=== PATIENT | female | born 1950 | race Caucasian/White ===

== ENCOUNTER 2016-03-15 16:55 | Inpatient (IN) | payer MEDICARE, OTHER ==
[~2016-03-15] VITALS: Ht 165.1 cm; Wt 43.0 kg
[~2016-03-15 16:55] MED LIST: DIFL500T PO
[2016-03-15 20:00] VITALS: PULSE 112
[2016-03-15] MEDS: DEXT 5%-NACL 0.45% 1000 ML INJ 1,000 ML IV SCH (20:30)
[2016-03-15] MEDS: HEPARIN SODIUM - SQ 10,000 UNITS/ML VIAL SQ SCH (20:49)
[2016-03-15] MEDS: FAMOTIDINE 20 MG/2 ML VIAL IV SCH (20:49)
[2016-03-15] MEDS: MORPHINE SULFATE 4 MG/ML INJ IV PRN ×2 (20:49→22:33)
[2016-03-15] MEDS: methylPREDNISolone SOD SUCC 125 MG/2 ML VIAL IV SCH (20:49)
--- NOTE | 2016-03-15 20:55 | PD.CONS ---
HPI Service Critical Care Medicine Consult Requested By Reason for Consult Critical Airway Primary Care Physician Jorje Park M.D. History of Present Illness 65 y/o woman developed a left submandibular abscess several days after a tooth extraction and required intubation for airway protection and surgical drainage of the left submandibular region for a large abscess containing pus and air. A josefina drain is in place. She will undergoing drainage inside the mouth tomorrow by OMFS Service. Presently on Ceftriaxone on recommendation of ID service at [facility] after review of the cultures. DM, 2 with poor glucose control. She is confused and combative, unable to respond to ROS. Review of Systems ROS Unobtainable, confused. Past Family Social History Allergies: Coded Allergies: Codeine (Verified Allergy, Unknown, 02/03/16) Vicodin (Verified Allergy, Unknown, 02/03/16) Past Medical History DM, 2 Spinocerebellar Ataxia Physical Exam Physical Exam Gen: Agitated, elderly woman. Head: Recent incision 3 cm under left mandible with sutures and josefina drain. No erythema. Neck: Supple, no stridor. Moderate left side swelling. LungsL Clear, mild tachypnea. No wheezes or crackles. Heart: NL S1S2, tachycardia. No JVD. Abdomen: Soft, nontender. No peritoneal irritation or guarding. BS active. Extremities: Warm, well perfused. Neuro: Confused and combative. Moves 4 limbs spontaneously. Right weaker than left. Loud moaning, continuous. Assessment and Plan Assessment and Plan Assessment: 1. Left mandibular abscess s/p external drainage. 2. DM, poorly controlled. 3. Severe agitation. 4. UTI. Plan: 1. Ceftriaxone. 2. Airway precautions. 3. HOB up 30 degrees. 4. No benzodiazepines. 5. Consider precedex if unmanageable. 6. Pepci. 7. Heparin DVT px or SCDs. 8. q6h SSI for euglycemia. Overall impression: Critically ill with potentially compromised airway and risk of sudden respiratory distress. The left neck is swollen and the airway is compromised. She does not have stridor at this point. We will hold off intubation, continue steroids and antibiotics; watch glucose control and intubate if necessary for airway protection. Critical care 37 mins Leo Ellison MD Mar 15, 2016 20:55
[2016-03-15] MEDS ORDERED: cefTRIAXone 2,000 MG/NS 100 ML IV SCH ×2 (21:00)
[2016-03-15] MEDS ORDERED: GLUCAGON 1 MG/ML VIAL OTHER PRN (21:30)
[2016-03-15] MEDS ORDERED: DEXTROSE 50% IN WATER 50 ML VIAL(D50) IV PUSH PRN (21:30)
[2016-03-15 22:00] VITALS: PULSE 72
[2016-03-16] VITALS (14 sets, daily range): BP systolic 157–197; BP diastolic 73–84; PULSE 74–108; RESP 20–30; TEMP 98.1–98.3; O2SAT 93–98
[2016-03-16] MEDS: MORPHINE SULFATE 4 MG/ML INJ IV PRN ×7 (02:38→23:59)
[2016-03-16 04:43] LABS: AUTOMATED NEUTROPHIL # 26.6 TH/MM3 (1.8-7.7); BASOPHIL # 0.1 TH/MM3 (0-0.2); BASOPHIL % 0.2 % (0.0-2.0); HEMATOCRIT 29.8 % (35.0-46.0); LYMPHOCYTE # 0.6 TH/MM3 (1.0-4.8); MEAN CELL VOLUME 91.2 FL (80.0-100.0); MEAN CORPUSCULAR HEMOGLOBIN 31.2 PG (27.0-34.0); MEAN CORPUSCULAR HGB CONC 34.2 % (32.0-36.0); MONO % 4.6 % (0.0-8.0); NEUT % 93.2 % (16.0-70.0); PLATELET COUNT 230 TH/MM3 (150-450); RED BLOOD COUNT 3.27 MIL/MM3 (4.00-5.30); RED CELL DISTRIBUTION WIDTH 14.7 % (11.6-17.2); WHITE BLOOD COUNT 28.5 TH/MM3 (4.0-11.0)
[2016-03-16 04:51] LABS: HEMO FLAGS AUTO DIFF
[2016-03-16] MEDS: methylPREDNISolone SOD SUCC 125 MG/2 ML VIAL IV SCH (05:00)
[2016-03-16 05:12] LABS: ALKALINE PHOSPHATASE 64 U/L (45-117); ALT (GPT) 64 U/L (10-53); ANION GAP 8 MEQ/L (5-15); AST (GOT) 23 U/L (15-37); BICARBONATE 29.4 MEQ/L (21.0-32.0); BLOOD UREA NITROGEN 14 MG/DL (7-18); CHLORIDE 106 MEQ/L (98-107); GLOMERULAR FILTRATION RATE 139 ML/MIN (>89); MAGNESIUM 1.8 MG/DL (1.5-2.5); SODIUM (NA) 143 MEQ/L (136-145); TOTAL BILIRUBIN ADULT 0.4 MG/DL (0.2-1.0)
[2016-03-16 05:17] LABS: POTASSIUM 2.9 MEQ/L (3.5-5.1)
[2016-03-16 05:24] LABS: SCAN/DIFF AUTO DIFF CONFIRMED; TOXIC GRANULATION 2+ (NORMAL)
[2016-03-16] MEDS: HIGH DOSE INSULIN NOVOLOG SUPPLEMENTAL SCALE SQ SCH ×5 (06:00→23:58)
[2016-03-16] MEDS ORDERED: POTASSIUM CHLOR 40 MEQ PREMIX 100 ML IV ONE (06:30)
[2016-03-16] MEDS: FAMOTIDINE 20 MG/2 ML VIAL IV SCH ×2 (08:52→19:42)
[2016-03-16] MEDS: HEPARIN SODIUM - SQ 10,000 UNITS/ML VIAL SQ SCH ×2 (08:53→19:42)
[2016-03-16] MEDS ORDERED: ATROPINE SULFATE 1 MG/10 ML SYRINGE ONE (09:00)
[2016-03-16] MEDS ORDERED: LIDOCAINE HCL 2% 100 MG/5 ML SYRINGE ONE (09:00)
[2016-03-16] MEDS ORDERED: EPINEPHrine HCL (1:10,000) 1 MG/10 ML SYRINGE ONE (09:00)
--- NOTE | 2016-03-16 09:12 | HHI.CCPN ---
Subjective Remarks/Hospital Course 65 y/o woman developed a left submandibular abscess several days after a tooth extraction and required intubation for airway protection and surgical drainage of the left submandibular region for a large abscess containing pus and air. A josefina drain is in place. She will undergoing drainage inside the mouth tomorrow by OMFS Service. Presently on Ceftriaxone on recommendation of ID service at [facility] after review of the cultures. DM, 2 with poor glucose control. Objective Vital Signs Date Time Temp Pulse Resp B/P Pulse Ox O2 Delivery O2 Flow Rate FiO2 03/16/16 06:00 76 03/16/16 02:39 93 Nasal Cannula 2.00 Intake and Output 03/15/16 03/15/16 03/16/16 08:00 16:00 00:00 Intake Total 120 ml Output Total 225 ml Balance -105 ml Result Diagram: 03/16/16 0415 03/16/16 0415 Objective Remarks Vital Signs Date Time Temp Pulse Resp B/P Pulse Ox O2 Delivery O2 Flow Rate FiO2 03/16/16 06:00 76 03/16/16 02:39 93 Nasal Cannula 2.00 Gen: Agitated, elderly woman. Head: Recent incision 3 cm under left mandible with sutures and josefina drain. No erythema. Neck: Supple, no stridor. Moderate left side swelling. LungsL Clear, mild tachypnea. No wheezes or crackles. Heart: NL S1S2, tachycardia. No JVD. Abdomen: Soft, nontender. No peritoneal irritation or guarding. BS active. Extremities: Warm, well perfused. Neuro: Confused and combative. Moves 4 limbs spontaneously. Right weaker than left. Loud moaning, continuous. A/P Assessment and Plan Left mandibular abscess - s/p external drainage - Ceftriaxone. - Airway precautions. - HOB up 30 degrees. - No benzodiazepines. DM - poorly controlled - ISS -resume home meds Severe agitation - Haldol PRN UTI - covered with Rocephin DVT/GI prophylaxis - Heparin, SCDs., Pepcid Level 3 Jayson Owusu MD Mar 16, 2016 09:12
[2016-03-16] MEDS ORDERED: IOHEXOL 350 MG/ML 10 ML VIAL (for RAD DIAG) IV ONE (09:46)
--- NOTE | 2016-03-16 10:27 | RADRPT ---
EXAM DATE/TIME: 03/16/2016 09:37 [place] COMPARISON: No previous studies available for comparison. INDICATIONS: Left mandibular abscess after tooth extraction. IV CONTRAST: 48 cc Omnipaque 350 (iohexol) IV RADIATION DOSE: 9.02 CTDIvol (mGy) MEDICAL HISTORY: Diabetes mellitus type 2. SURGICAL HISTORY: None. ENCOUNTER: Initial ACUITY: 1 week PAIN SCALE: 0/10 LOCATION: Left facial TECHNIQUE: Volumetric scanning of the neck was performed. Using automated exposure control and adjustment of th e mA and/or kV according to patient size, radiation dose was kept as low as reasonably achievable to obtain optimal diagnostic quality images. FINDINGS: There is extensive artifact. In spite of artifact there is air in the tonsillar fossa on the right t hat is on both sides of the mandible. Fluid is seen both in the cheyenne-parotid space and on the inner side of the mandible tracking down to the angle of the abdomen involving base of tongue. This is confined to the left face, including cheyenne-parotid space and base of the tongue. This does no t extend into the low neck. This does not involve the right side. CONCLUSION: Dental abscess as described above extending from tonsillar fossa around the mandible to the parotid s pace with extension along the base of the tongue to the arch of the mandible. Air and fluid is evident. Sarkis Kurtz MD FACR on March 16, 2016 at 10:06 Board Certified Radiologist. This report was verified electronically.
--- NOTE | 2016-03-16 10:35 | MB ---
cc: KYA SANDERSON DMD DATE OF CONSULTATION: 03/16/2016 HISTORY OF PRESENT ILLNESS This is a 65-year-old female who several days ago underwent a left submandibular I&D by Dr. Carter. This was at [facility]. She was sent to the ICU. There was a left submandibular space abscess. Pus came out. Dr. Carter called me yesterday and requested the patient be transferred to [place] as there was no oral surgery service provided in that hospital. I seen and examined the patient this morning. Her nurse is at bedside. The patient does not follow commands. She is just moaning. The patient is at times also combative. PAST MEDICAL HISTORY 1. Diabetes; as per report poor glucose control. 2. Spinal cerebral ataxia. ALLERGIES 1. CODEINE. 2. VICODIN. PHYSICAL EXAMINATION VITAL SIGNS: Pulse 96, respiratory rate 30, blood pressure 155/75 with oxygen saturation of 97%. ORAL MAXILLOFACIAL: The patient's mouth is open. I attempt to gently close the mouth. There is no pus that is noted intraorally. I do not see any recent extraction sites in her mouth. Her dentition clinically looks stable. There is a small elevation on the left floor of the mouth. This could be secondary to the I&D procedure. The posterior aspect looks stable. No elevation of the tongue. No pus coming out of the mouth. Neck on the left side a dressing is placed and a Lindsey drain is in place. There is some discharge that is apparently still coming out of this site. Trachea is midline. The left submandibular region is still swollen. The angle of the mandible is palpable. IMAGING DATA Awaiting CT scan of the soft tissue of the neck to re-evaluate. LABORATORY DATA White count 28.5, H&H 10.8 and 29.8, platelets 230. ASSESSMENT This is a 65-year-old female who recently last week underwent incision and drainage of a left submandibular space abscess by Dr. Carter. Still having some white count elevation. PLAN/RECOMMENDATIONS Will await the CT scan results to try to identify the source of this infection/odontogenic infection if applicable. Kya Sanderson DMD MEDICAL BILLING AND CODING INSTRUCTOR/BT /7:44 AM /10:19 AM MTDQuintin
--- NOTE | 2016-03-16 11:23 | HHI.HP ---
HPI Service [facility] Primary Care Physician Jorje Park M.D. Admission Diagnosis Diagnoses: Chief Complaint: transfer from [facility] for oral facial evaluation, left mandible abscess (Fabiana Grossman) Travel History International Travel<30 Days: No Contact w/Intl Traveler <30 Da: No Traveled to Known Affected Are: No (Fabiana Grossman) History of Present Illness This is a 65 y/o woman with PMHx of spinocerebellar ataxia, resident of an [facility]. Pt. was admitted to [facility] on 03/11/2016 after she developed swelling to left neck. Pt. had a recent dental procedure on 03/05/2016 on the right side. At [facility], patient was found septic, imaging studies completed showed a left submandibular abscess. Patient required intubation for airway protection and underwent incision and drainage of abscess per Dr. Carter. Patient was admitted to the intensive care unit where she was managed by software applications developer Dr. Harris. ID consultation was obtained as well. 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 Currently she is on Rocephin. Patient was extubated at [facility]. Dr. Carter was concerned that there was residual tooth fragment and may need further surgery. As there are no OMFS services at [facility] , she was transferred to [place]. Dr. Carter has discussed case with Dr. Sanderson. Pt. has a josefina drain in place and has cazares colored drainage oozing. Patient still with significant leukocytosis, WBC 28.5. She's noted also hypokalemic, potassium 2.9. She was admitted to intensive care services, software applications developer has been consulted for assistance. Patient has been continued on antibiotics. Patient has been confused, combative. At this time she is moaning , she is not following commands. Per daughter's report given to nurse, patient sometimes becomes agitated after sedative agents. Neuro baseline is not know, no family is at bedside. Patient is admitted for further evaluation and treatment. (Fabiana Grossman) Review of Systems ROS Limitations: Altered Mental Status, Poor Historian (Fabiana Grossman) Past Family Social History Past Medical History spinocerebellar ataxia OA Poss. hx of DM Right proximal humerus fracture August 2014 which has resulted in ongoing right shoulder pain. Past Surgical History S/P I/D left mandibular abscess Dental procedure 03/05/2016, unclear what type of procedure pt. had Reported Medications Reported Meds & Active Scripts Active Reported Diflunisal 500 Mg Tab 500 Mg PO DAILY (Fabiana Grossman) Allergies: Coded Allergies: Codeine (Verified Allergy, Unknown, 02/03/16) Vicodin (Verified Allergy, Unknown, 02/03/16) Active Ordered Medications Inpatient Medications Ceftriaxone Sodium 2000 mg/ Sodium Chloride 100 ml @ 200 mls/hr Q24H IV Last administered on 03/15/16 20:49; Start 03/15/16 at 21:00 Dextrose (D50w (Vial) Inj) 25 ml UNSCH PRN IV PUSH HYPOGLYCEMIA - SEE COMMENTS ; Start 03/15/16 at 21:30 Dextrose/Sodium Chloride (D5W-1/2 NS 1000 ml Inj) 1,000 ml @ 75 mls/hr [id number] IV Last administered on 03/15/16 20:30; Start 03/15/16 at 20:30 Famotidine (Pepcid Inj) 20 mg Q12HR IV Last administered on 03/16/16 08:52; Start 03/15/16 at 21:00 Glucagon (Glucagon Inj) 1 mg UNSCH PRN OTHER HYPOGLYCEMIA-SEE COMMENTS; Start 03/15/16 at 21:30 Heparin Sodium (Porcine) (Heparin Inj) 5,000 units Q12HR SQ Last administered on 03/15/16 20:49; Start 03/15/16 at 21:00 Insulin Aspart 1 1 Q6HR SQ Last administered on 03/16/16 00:00; Start at 00:00 Methylprednisolone Sodium Succinate (SoluMEDROL INJ) 80 mg Q8H IV Last administered on 03/16/16 05:00; Start 03/15/16 at 21:00 Morphine Sulfate (Morphine Inj) 2 mg Q30M PRN IV PAIN 6-10 Last administered on 03/16/16 06:11; Start 03/15/16 at 20:30 Potassium Chloride (KCl 40 Meq Premix Inj) 100 ml @ 25 mls/hr ONCE ONCE IV Last administered on 03/16/16 06:30; Start 03/16/16 at 06:30; Stop 03/16/16 at 10:29; Status DC Family History Positive for OH, CAD in father Social History Lives at [facility], wheelchair bound. No documented hx of ETOH, smoking, substance abuse. (Fabiana Grossman) Physical Exam Vital Signs Vital Signs Date Time Temp Pulse Resp B/P Pulse Ox O2 Delivery O2 Flow Rate FiO2 03/16/16 10:59 97 Nasal Cannula 2.00 03/16/16 10:00 83 03/16/16 08:00 98.1 108 25 167/84 98 03/16/16 08:00 108 03/16/16 07:00 100 Nasal Cannula 2.00 03/16/16 06:00 76 03/16/16 04:00 74 03/16/16 02:39 93 Nasal Cannula 2.00 03/16/16 02:00 80 03/16/16 00:00 80 03/15/16 22:00 72 03/15/16 20:00 112 Physical Exam GENERAL: This is an elderly, anxious female, moaning. SKIN: No rashes, ecchymoses or lesions. Cool and dry. HEAD: Atraumatic. Normocephalic. No temporal or scalp tenderness. EYES: Pupils equal round and reactive. Extraocular motions intact. No scleral icterus. No injection or drainage. ENT: Nose without bleeding, purulent drainage or septal hematoma. Oropharynx with dried oral secretions, mucosa dry. Throat with mild erythema, no tonsillar hypertrophy or exudate. Uvula midline. Airway patent. NECK: Trachea midline. No JVD or lymphadenopathy. Supple. Left neck with swelling, has a josefina drain in place, purulent cazares drainage noted with odor. CARDIOVASCULAR: Regular rate and rhythm without murmurs, gallops, or rubs. RESPIRATORY: Coarse, upper airway, diminished at bases. GASTROINTESTINAL: Abdomen soft, non-tender, nondistended. No hepato-splenomegaly , or palpable masses. No guarding. MUSCULOSKELETAL: Extremities noted rigid, muscle atrophy. Dependent edema noted both feet, pedal pulses 1+ bilat. NEUROLOGICAL: Awake, moaning, not following commands. Laboratory Laboratory Tests Test 03/16/16 04:15 White Blood Count 28.5 Red Blood Count 3.27 Hemoglobin 10.2 Hematocrit 29.8 Mean Corpuscular Volume 91.2 Mean Corpuscular Hemoglobin 31.2 Mean Corpuscular Hemoglobin 34.2 Concent Red Cell Distribution Width 14.7 Platelet Count 230 Mean Platelet Volume 9.3 Neutrophils (%) (Auto) 93.2 Lymphocytes (%) (Auto) 2.0 Monocytes (%) (Auto) 4.6 Eosinophils (%) (Auto) 0.0 Basophils (%) (Auto) 0.2 Neutrophils # (Auto) 26.6 Lymphocytes # (Auto) 0.6 Monocytes # (Auto) 1.3 Eosinophils # (Auto) 0.0 Basophils # (Auto) 0.1 CBC Comment AUTO DIFF Differential Comment AUTO DIFF CONFIRMED Toxic Granulation 2+ Sodium Level 143 Potassium Level 2.9 Chloride Level 106 Carbon Dioxide Level 29.4 Anion Gap 8 Blood Urea Nitrogen 14 Creatinine 0.45 Estimat Glomerular Filtration 139 Rate Random Glucose 174 Calcium Level 8.0 Magnesium Level 1.8 Total Bilirubin 0.4 Aspartate Amino Transf 23 (AST/SGOT) Alanine Aminotransferase 64 (ALT/SGPT) Alkaline Phosphatase 64 Total Protein 5.5 Albumin 2.7 Date/Time Procedure Status Source Growth 03/16/16 10:25 Gram Stain Received Wound Neck Pending 03/16/16 10:25 Wound Culture Received Wound Neck Pending 03/16/16 10:25 Fungal Smear Received Wound Neck Pending 03/16/16 10:25 Fungal Culture Received Wound Neck Pending 03/16/16 10:25 Acid Fast Stain Received Wound Neck Pending 03/16/16 10:25 Mycobacterial Culture Received Wound Neck Pending (Fabiana Grossman) Result Diagram: 03/16/165 03/16/16414 Assessment and Plan Problem List: (1) Sepsis (2) Spinocerebellar ataxia (3) Blood glucose elevated (4) Hypokalemia (5) recent I/D left mandible (6) History of recent dental procedure (7) left mandibular abscess (8) Altered mental status Assessment and Plan Admit to Dr. Stevens 65 y/o woman with admitted to [facility] on 03/11/2016 swelling to left neck, diagnosed with left mandibular abscess requiring emergent exploratory surgery and incision and drainage of abscess per Dr. Carter. Recent dental procedure on 03/05/2016 on the right side.Pt. required intubation for airway protection. Sent to [facility] for evaluation by [facility]. Pt. is septic, with significant leukocytosis, has a josefina drain to surgical site with purulent drainage. -continue antibiotics -ID consult in place -Follow cultures -Dr. Sanderson following -CT of neck has been ordered, follow up on results -Appreciate software applications developer input -Monitor for respiratory distress, keep NPO. At risk for airway compromise. -continue IVF Hypokalemia -K has been replaced -BMP in am Elevated blood glucose -continue with accuchecks and ISS AMS, has been agitated, unclear of baseline, poss. from sepsis -monitor, may need further work up -Ammonia level Hx of spinocerebellar ataxia -pt. wheelchair bound, lives at [facility] -PT eval when stable. Home medications reviewed, initiated as indicated Heparin/SCDs for DVT prophylaxis Pepcid for GI prophylaxis Plan of care discussed with attending and RN. Further management of the pt. will be dependent on the hospital course. This patient was seen by myself and Dr. Stevens, this H/P is written on his behalf. (Fabiana Grossman) Assessment and Plan Patient seen and examined as above Chart reviewed Labs and neurological data reviewed Medications reviewed Plan of care discussed with LYN Discussed with RN Discussed with ID (Dalila Stevens MD) Physician Certification 2 Midnight Certification Type: Admission for Inpatient Services Order for Inpatient Services The services are ordered in accordance with Medicare regulations or non- Medicare payer requirements, as applicable. In the case of services not specified as inpatient-only, they are appropriately provided as inpatient services in accordance with the 2-midnight benchmark. Estimated LOS (days): 2 2 days is the estimated time the patient will need to remain in the hospital, assuming treatment plan goals are met and no additional complications. Post-Hospital Plan: Not yet determined (Fabiana Grossman) Problem Qualifiers (1) Sepsis: Qualified Code: A41.9 - Sepsis, due to unspecified organism (2) Altered mental status: Qualified Code: R41.0 - Disorientation Fabiana Grossman Mar 16, 2016 11:23 Dalila Stevens MD Mar 16, 2016 16:29
[2016-03-16] MEDS ORDERED: SODIUM CHLORIDE 0.9% FLUSH 5 ML FLUSH FLUSH PRN (11:30)
[2016-03-16] MEDS ORDERED: NALOXONE HCL 0.4 MG/ML AMP IV PRN (11:30)
[2016-03-16] MEDS ORDERED: ONDANSETRON HCL 4 MG/2 ML VIAL IVP PRN (12:00)
[2016-03-16] MEDS ORDERED: ACETAMINOPHEN 325 MG TAB PO PRN (12:00)
[2016-03-16] MEDS: AMPICILLIN-SULBACTAM INJ 3 GM in SODIUM CHLORIDE 0.9% INJ 100 ML IV SCH ×2 (13:20→17:54)
--- NOTE | 2016-03-16 14:23 | PD.CONS ---
History of Present Illness Service Infectious disease Consult Requested By Dr Coral Owusu Reason for Consult Evaluate patient with neck abscess Primary Care Physician Jorje Park M.D. Diagnoses: History of Present Illness Patient seen and examined. Records reviewed. Patient is unable to give any history. Patient is transferred from [facility], and now reviewed the records from that hospital. I also called [facility] microbiology to get information on her cultures. Patient is a 65-year-old female, initially admitted to [facility] for evaluation of an abscess in the left side of her neck. She apparently underwent tooth extraction March 05. She then developed swelling on the left side of her neck and progressively worsened so she presented to [facility] on March 11. She was diagnosed to have a large neck abscess, and ENT saw the patient and did left neck exploration with incision and drainage of the deep space neck abscess. She was initially intubated for airway protection, and was subsequently extubated. She was transferred here to [facility] for oral maxillofacial surgical evaluation. There was some question of whether it was an incomplete tooth extraction which could have caused the abscess in her left neck. According to the nurse, the report they got from [facility] is that since she was extubated, her mental status has not been good. She has been moaning, and not really interacting. Prior to intubation she was apparently able to converse. Patient was seen by infectious disease as well as pulmonary during her stay in [facility]. She has blood culture that had strep anginal status , which is sensitive to all the antibiotics tested. She also has culture that came from surgery that grew strep anginal cirrhosis as well. Patient currently is quite lethargic and constantly moaning. She is on nasal O2 , and she is mouth breathing. She's afebrile. Her WBC on admission is 28.5. Infectious disease consultation is requested to evaluate the patient. Review of Systems ROS Limitations: Clinical Condition, Altered Mental Status, Unresponsive Past Family Social History Allergies: Coded Allergies: Codeine (Verified Allergy, Unknown, 02/03/16) Vicodin (Verified Allergy, Unknown, 02/03/16) Past Medical History Spinocerebellar ataxia Past Surgical History Right hand surgery Breast augmentation Question section Active Ordered Medications Tylenol Unasyn Pepcid Heparin Insulin Morphine Zofran Social History Lives in an [facility] No alcohol abuse No smoking No illicit drug use Physical Exam Vital Signs Vital Signs Date Time Temp Pulse Resp B/P Pulse Ox O2 Delivery O2 Flow Rate FiO2 03/16/16 12:00 88 03/16/16 12:00 98.2 88 22 157/73 98 03/16/16 10:59 97 Nasal Cannula 2.00 03/16/16 10:00 83 03/16/16 08:00 98.1 108 25 167/84 98 03/16/16 08:00 108 03/16/16 07:00 100 Nasal Cannula 2.00 03/16/16 06:00 76 03/16/16 04:00 74 03/16/16 02:39 93 Nasal Cannula 2.00 03/16/16 02:00 80 03/16/16 00:00 80 03/15/16 22:00 72 03/15/16 20:00 112 Physical Exam GENERAL: This is a thin, well-developed female, obtunded, mouth breathing, and has some upper respiratory sounds. SKIN: Cool and dry. No generalized rash. No embolic lesions. HEAD: Atraumatic. Normocephalic. Has some temporal wasting EYES: [place] conjunctivae, no petechia or hemorrhage. Pupils equal round and reactive. No scleral icterus. No injection or drainage. ENT: Nose without bleeding, or purulent drainage. Dry oral mucosa, dentition look okay, has some swelling on the left side of the floor of the mouth. Throat without erythema, or exudate. Uvula midline. Airway patent. NECK: Supple. Has incision in L submandibular area with josefina drain in place , and with small amount of yellow drainage, some swelling noted as well, minimal erythema CARDIOVASCULAR: Regular rate and rhythm without murmurs, gallops, or rubs. RESPIRATORY: Clear to auscultation. Breath sounds equal bilaterally. Has some upper respiratory sounds,. No wheezes, rales, or rhonchi. GASTROINTESTINAL: Abdomen soft, mildly distended, not guarding, no rebound. No hepato-splenomegaly. MUSCULOSKELETAL: Extremities without clubbing, cyanosis, or edema. No joint effusion, or edema noted. NEUROLOGICAL: Obtunded, moans when stimulated, not interactive. No Babinski, no ankle clonus Laboratory Laboratory Tests Test 03/16/16 04:15 White Blood Count 28.5 Red Blood Count 3.27 Hemoglobin 10.2 Hematocrit 29.8 Mean Corpuscular Volume 91.2 Mean Corpuscular Hemoglobin 31.2 Mean Corpuscular Hemoglobin 34.2 Concent Red Cell Distribution Width 14.7 Platelet Count 230 Mean Platelet Volume 9.3 Neutrophils (%) (Auto) 93.2 Lymphocytes (%) (Auto) 2.0 Monocytes (%) (Auto) 4.6 Eosinophils (%) (Auto) 0.0 Basophils (%) (Auto) 0.2 Neutrophils # (Auto) 26.6 Lymphocytes # (Auto) 0.6 Monocytes # (Auto) 1.3 Eosinophils # (Auto) 0.0 Basophils # (Auto) 0.1 CBC Comment AUTO DIFF Differential Comment AUTO DIFF CONFIRMED Toxic Granulation 2+ Sodium Level 143 Potassium Level 2.9 Chloride Level 106 Carbon Dioxide Level 29.4 Anion Gap 8 Blood Urea Nitrogen 14 Creatinine 0.45 Estimat Glomerular Filtration 139 Rate Random Glucose 174 Calcium Level 8.0 Magnesium Level 1.8 Total Bilirubin 0.4 Aspartate Amino Transf 23 (AST/SGOT) Alanine Aminotransferase 64 (ALT/SGPT) Alkaline Phosphatase 64 Total Protein 5.5 Albumin 2.7 Date/Time Procedure Status Source Growth 03/16/16 10:25 Gram Stain Received Wound Neck Pending 03/16/16 10:25 Wound Culture Received Wound Neck Pending 03/16/16 10:25 Fungal Smear Received Wound Neck Pending 03/16/16 10:25 Fungal Culture Received Wound Neck Pending 03/16/16 10:25 Acid Fast Stain Received Wound Neck Pending 03/16/16 10:25 Mycobacterial Culture Received Wound Neck Pending Result Diagram: 03/16/16 0415 03/16/16414 Assessment and Plan Assessment and Plan IMPRESSION 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
--- NOTE | 2016-03-16 16:17 | MB ---
cc: RODNEY CONNORS MD DATE OF CONSULTATION: 03/16/2016 CHIEF COMPLAINT Left neck abscess. HISTORY OF PRESENT ILLNESS This is a 65-year-old female known to me, she presented to [facility] Wednesday night to the emergency room with diagnosis of Bryan's angina as well as a large left neck abscess from a dental extraction time of March the in her fpc of tooth #31. At that time the patient was unstable in very critical condition. She was taken to the operating room for intubation which I did under flexible scope with preparation for possible awake tracheostomy that we did not have to do. We moved forward with surgical drainage, at which time I drained approximately 20 mL of purulent material from her left neck, deep neck space just in the retromandibular area posterior to the submandibular gland approaching the area of tooth 31. There was significant purulent drainage noted at that time. The patient had cultures and sensitivities done and she was treated in the ICU over the next couple of days. She continued to do well, however, her white counts continued to increase and her left neck swelling decreased and improved greatly as well as her floor of mouth edema and purulence. However, after evaluation of her status Wednesday, I determined that she would benefit from oral surgery evaluation because as speaking with her daughter, it was obvious that some portions of the tooth root were left in place that she explained that the dentist told her and this may be the nidus for continued infections. The improvement in her left neck is continued. She is no longer intubated, her airway is still patent, however, she is not responding appropriately or the way that she did preoperatively and prior to the intubation in the ICU. 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 I am unaware if that is factual or not. She was responding Wednesday night to questions, however, she was difficult to understand from the amount of edema. She is currently resting comfortably in bed. PAST MEDICAL HISTORY Significant for: Diabetes mellitus as well as spinal cerebellar ataxia. ALLERGIES SHE IS ALLERGIC TO BOTH CODEINE AND VICODIN. REVIEW OF SYSTEMS As per the HPI. SOCIAL HISTORY She currently lives in a fpc and receives care there for her dental work. PHYSICAL EXAMINATION The patient is not alert or oriented. She awakens her eyes to command and to voice. The oral cavity shows continued purulence noted around the left extraction site. The left neck shows continued purulence coming from the Lindsey drain site but the left neck swelling is markedly increased as compared to it was preoperatively. still edematous but non-fluctuant. ASSESSMENT/PLAN The patient should continue with the Tad drainage from the left submandibular space abscess. She has improved greatly in her neck. I will have to defer the oral cavity to the oral surgery service as I am not sure what the nidus for continued elevated white counts are, whether it is steroid-induced or continued residual infection, possibly an osteomyelitis of the mandible. The patient did have infectious disease consult at [facility] and she would likely benefit from infectious disease consultation here at [facility]. At this time we are going to continue the Lindsey drain and will reevaluate for removal possibly on Wednesday. Rodney Connors AT/TLL /11:56 AM /3:33 PM MTDQuintin
[2016-03-16] MEDS: METOPROLOL TARTRATE 5 MG/5 ML VIAL IV PUSH PRN (17:54)
[2016-03-16] MEDS: DEXT 5%-NACL 0.45% 1000 ML INJ 1,000 ML IV SCH (19:42)
[2016-03-16] MEDS: SODIUM CHLORIDE 0.9% FLUSH 5 ML FLUSH FLUSH SCH (19:43)
[2016-03-16] MEDS: hydrALAZINE HCL 20 MG/ML VIAL IV PUSH PRN (20:16)
[2016-03-16] MEDS ORDERED: ICU - CALL ORDERING PHYSICIAN XX PRN (21:00)
[2016-03-16] MEDS ORDERED: ICU - MAGNESIUM OXIDE 400 MG TAB PO PRN (21:00)
[2016-03-16] MEDS ORDERED: ICU - POTASSIUM PHOSPHATE MONOBASIC 500 MG TAB PO/TUBE PRN (21:00)
[2016-03-16] MEDS ORDERED: ICU - POTASSIUM PHOSPHATE 30 MMOL/NS 250 ML IV PRN ×2 (21:00)
[2016-03-16] MEDS ORDERED: ICU - D/C ICU ELECTROLYTE ORDERS XX PRN (21:00)
[2016-03-16] MEDS ORDERED: ICU - SODIUM PHOSPHATE 30 MMOL/NS 250 ML IV PRN ×2 (21:00)
[2016-03-16] MEDS ORDERED: ICU - MAGNESIUM SULFATE 4 GM/NS 100 ML IV PRN ×2 (21:00)
[2016-03-16] MEDS ORDERED: ICU - POTASSIUM CHLORIDE/AQUEOUS SOLN 20 MEQ/100 ML IVPB IV PRN (21:00)
[2016-03-16] MEDS ORDERED: ICU - MAGNESIUM SULFATE 2 GM/NS 100 ML IV PRN ×2 (21:00)
[2016-03-16] MEDS ORDERED: ICU - POTASSIUM CHLORIDE 10% LIQUID 40 MEQ/30 ML CUP PO PRN (21:00)
[2016-03-16] MEDS: ICU - POTASSIUM CHLORIDE/AQUEOUS SOLN 40 MEQ/100 ML IVPB IV PRN (21:29)
[2016-03-17] VITALS (14 sets, daily range): BP systolic 128–161; BP diastolic 8–86; PULSE 84–126; RESP 16–28; TEMP 97.6–99; O2SAT 97–98
[2016-03-17] MEDS: MORPHINE SULFATE 4 MG/ML INJ IV PRN ×4 (00:43→23:40)
[2016-03-17] MEDS: AMPICILLIN-SULBACTAM INJ 3 GM in SODIUM CHLORIDE 0.9% INJ 100 ML IV SCH ×4 (01:33→19:05)
[2016-03-17 04:46] LABS: HEMATOCRIT 35.1 % (35.0-46.0); MEAN CELL VOLUME 92.2 FL (80.0-100.0); MEAN CORPUSCULAR HEMOGLOBIN 30.6 PG (27.0-34.0); MEAN CORPUSCULAR HGB CONC 33.2 % (32.0-36.0); PLATELET COUNT 325 TH/MM3 (150-450); RED BLOOD COUNT 3.81 MIL/MM3 (4.00-5.30); RED CELL DISTRIBUTION WIDTH 14.4 % (11.6-17.2); WHITE BLOOD COUNT 34.1 TH/MM3 (4.0-11.0)
[2016-03-17 05:20] LABS: HEMO FLAGS AUTO DIFF
[2016-03-17 05:27] LABS: ALKALINE PHOSPHATASE 70 U/L (45-117); ALT (GPT) 62 U/L (10-53); ANION GAP 9 MEQ/L (5-15); AST (GOT) 20 U/L (15-37); BICARBONATE 27.8 MEQ/L (21.0-32.0); BLOOD UREA NITROGEN 9 MG/DL (7-18); CHLORIDE 103 MEQ/L (98-107); GLOMERULAR FILTRATION RATE 129 ML/MIN (>89); MAGNESIUM 1.7 MG/DL (1.5-2.5); POTASSIUM 4.4 MEQ/L (3.5-5.1); SODIUM (NA) 140 MEQ/L (136-145); TOTAL BILIRUBIN ADULT 0.5 MG/DL (0.2-1.0)
[2016-03-17] MEDS: HIGH DOSE INSULIN NOVOLOG SUPPLEMENTAL SCALE SQ SCH ×4 (06:00→23:47)
--- NOTE | 2016-03-17 07:51 | HHI.PR ---
Subjective Remarks pt seen and examined nurse at bedside moaning, not following commands Objective Vital Signs Date Time Temp Pulse Resp B/P Pulse Ox O2 Delivery O2 Flow Rate FiO2 03/17/16 06:00 102 03/17/16 04:00 100 03/17/16 04:00 99.0 100 28 146/69 97 03/17/16 02:00 84 03/17/16 00:00 96 03/17/16 00:00 97.9 96 26 144/69 97 03/16/16 22:00 106 03/16/16 20:00 80 03/16/16 20:00 98.1 80 20 167/81 94 03/16/16 19:00 97 Nasal Cannula 2.00 03/16/16 18:00 88 03/16/16 16:00 82 03/16/16 16:00 98.3 88 30 197/82 98 03/16/16 14:00 103 03/16/16 12:00 88 03/16/16 12:00 98.2 88 22 157/73 98 03/16/16 10:59 97 Nasal Cannula 2.00 03/16/16 10:00 83 03/16/16 08:00 98.1 108 25 167/84 98 03/16/16 08:00 108 I/O 03/16/16 03/16/16 03/16/16 03/17/16 03/17/16 03/17/16 07:00 15:00 23:00 07:00 15:00 23:00 Intake Total 576 ml 663 ml 652 ml 425 ml Output Total 450 ml 550 ml 1100 ml 400 ml Balance 126 ml 113 ml -448 ml 25 ml Intake IV Total 576 ml 663 ml 652 ml 425 ml Output Urine Total 450 ml 550 ml 1100 ml 400 ml # Bowel Movements 2 0 0 0 Result Diagram: 03/17/1643103/17/16431 Objective Remarks increase in wbc last evening, no pus, neck edema, no erythema neck softer, daughter at bedside this am - pus noted draining from left neck I & D site neck soft , trach midline, no erythema josefina drain in place no elevation fom/tongue, no vestibule edema, full mouth opening, ct scan - no collection neck, left Post mandible - some collection noted due to scatter image form her dental catholic, obscuring the tooth that is causing infection no clinical evidence of decayed/broken teeth, especially left side of mouth right side of mouth appears stable, no discharge, edema, elevation fom/tongue also Assessment and Plan Assessment and Plan d/w pt's dentist yesterday - tooth #31 decay - right side of mouth, pt referred for extraction pt asymptomatic last week in dental office - [facility] plan for ext tooth #18, i&d left mandible, neck abscess exam under anesthesia discussed with daughter plan for mor yesterday evening, benefits/risk reviewed previous cultures pending ID and ENT notes noted Venkatesh Sanderson DMD Mar 17, 2016 07:51
[2016-03-17 08:35] LABS: BANDS 3 % (0-6); MYELOCYTES 7 % (0-0); POLYS (SEG NEUTROPHILS) 81 % (16-70); WBC DIFF SAMPLE 100
[2016-03-17 08:37] LABS: PLATELET ESTIMATE SMEAR NORMAL (NORMAL); PLATELET MORPHOLOGY NORMAL (NORMAL); SCAN/DIFF FINAL DIFF MANUAL
[2016-03-17] MEDS: HEPARIN SODIUM - SQ 10,000 UNITS/ML VIAL SQ SCH ×2 (08:51→20:15)
[2016-03-17] MEDS: FAMOTIDINE 20 MG/2 ML VIAL IV SCH ×2 (08:51→20:15)
[2016-03-17] MEDS: SODIUM CHLORIDE 0.9% FLUSH 5 ML FLUSH FLUSH SCH ×2 (08:51→20:15)
--- NOTE | 2016-03-17 09:17 | HHI.PR ---
Subjective Subjective Remarks awake, moaning, grimacing not following commands temp max 99 ST unable to obtain ROS NPO, going to OR today Review of Systems Constitutional Constitutional Remarks 12 point ROS unable to do Vitals/Results Intake & Output 03/16/16 03/16/16 03/17/16 15:00 23:00 07:00 Intake Total 663 ml 652 ml 425 ml Output Total 550 ml 1100 ml 400 ml Balance 113 ml -448 ml 25 ml Intake IV Total 663 ml 652 ml 425 ml Output Urine Total 550 ml 1100 ml 400 ml # Bowel Movements 0 0 0 Vital Signs Vital Signs Date Time Temp Pulse Resp B/P Pulse Ox O2 Delivery O2 Flow Rate FiO2 03/17/16 08:00 112 03/17/16 08:00 98.5 112 25 128/61 97 03/17/16 07:00 99 Nasal Cannula 2.00 03/17/16 06:00 102 03/17/16 04:00 100 03/17/16 04:00 99.0 100 28 146/69 97 03/17/16 02:00 84 03/17/16 00:00 96 03/17/16 00:00 97.9 96 26 144/69 97 03/16/16 22:00 106 03/16/16 20:00 80 03/16/16 20:00 98.1 80 20 167/81 94 03/16/16 19:00 97 Nasal Cannula 2.00 03/16/16 18:00 88 03/16/16 16:00 82 03/16/16 16:00 98.3 88 30 197/82 98 03/16/16 14:00 103 03/16/16 12:00 88 03/16/16 12:00 98.2 88 22 157/73 98 03/16/16 10:59 97 Nasal Cannula 2.00 03/16/16 10:00 83 CBC/BMP: 03/17/16 0432 03/17/16 0432 Lab Results Laboratory Tests Test 03/16/16 03/17/16 17:38 04:32 Potassium Level 3.0 MEQ/L 4.4 MEQ/L White Blood Count 34.1 TH/MM3 Red Blood Count 3.81 MIL/MM3 Hemoglobin 11.7 GM/DL Hematocrit 35.1 % Mean Corpuscular Volume 92.2 FL Mean Corpuscular Hemoglobin 30.6 PG Mean Corpuscular Hemoglobin 33.2 % Concent Red Cell Distribution Width 14.4 % Platelet Count 325 TH/MM3 Mean Platelet Volume 9.0 FL Neutrophils (%) (Auto) % Lymphocytes (%) (Auto) % Monocytes (%) (Auto) % Eosinophils (%) (Auto) % Basophils (%) (Auto) % Neutrophils # (Auto) TH/MM3 Lymphocytes # (Auto) TH/MM3 Monocytes # (Auto) TH/MM3 Eosinophils # (Auto) TH/MM3 Basophils # (Auto) TH/MM3 CBC Comment AUTO DIFF Differential Total Cells 100 Counted Neutrophils % (Manual) 81 % Band Neutrophils % 3 % Lymphocytes % 2 % Monocytes % 7 % Neutrophils # (Manual) 31.0 TH/MM3 Myelocytes 7 % Differential Comment FINAL DIFF MANUAL Platelet Estimate NORMAL Platelet Morphology Comment NORMAL Red Cell Morphology Comment NORMAL Sodium Level 140 MEQ/L Chloride Level 103 MEQ/L Carbon Dioxide Level 27.8 MEQ/L Anion Gap 9 MEQ/L Blood Urea Nitrogen 9 MG/DL Creatinine 0.48 MG/DL Estimat Glomerular Filtration 129 ML/MIN Rate Random Glucose 119 MG/DL Calcium Level 8.4 MG/DL Phosphorus Level 2.3 MG/DL Magnesium Level 1.7 MG/DL Total Bilirubin 0.5 MG/DL Aspartate Amino Transf 20 U/L (AST/SGOT) Alanine Aminotransferase 62 U/L (ALT/SGPT) Alkaline Phosphatase 70 U/L Ammonia LESS THAN 10 MCMOL/L Total Protein 6.3 GM/DL Albumin 3.0 GM/DL Microbiology Microbiology 03/16/16 Gram Stain, Received Pending 03/16/16 Wound Culture, Received Pending 03/16/16 Acid Fast Stain, Received Pending 03/16/16 Mycobacterial Culture, Received Pending 03/16/16 Fungal Smear, Received Pending 03/16/16 Fungal Culture, Received Pending Physical Exam General General Appearance: Well Developed, Anxious Eyes Eye Exam: Pupils Equal, Pupils Reactive Ears & Nose Ears & Nose Exam: Nasal Mucosa [place] Throat Throat Remarks oral mucosa dry Neck Neck Remarks left neck swelling, josefina drain, purulent exudate Pulmonary Resp Exam: Decreased Bases Cardiology CV Exam: Regular Gastrointestinal/Abdomen GI Exam: Soft, Non-Tender, Bowel Sounds Present, Non-Distended Genitourinary Exam: Clear Urine Remarks BUSBY Musculoskeletal MS Exam: Atrophy, Unable to Ambulate Integumentary Skin Exam: Warm, Dry Extremeties Extremities Exam: Pedal Pulses Palpable, Trace Edema Neurologic Neuro Exam: Moving All Extremities Neuro Remarks awake, moaning, not following commands VTE Prophylaxis VTE Prophylaxis Device: SCDs VTE Prophylaxis Meds: Heparin PUD Prophylasis PUD Remarks PEPCID Assessment/Plan Problem List: (1) Sepsis (2) Altered mental status (3) Blood glucose elevated (4) Hypokalemia (5) Spinocerebellar ataxia (6) left mandibular abscess (7) recent I/D left mandible (8) History of recent dental procedure Assessment/Plan 65 y/o woman with admitted to [facility] on 03/11/2016 swelling to left neck, diagnosed with left mandibular abscess requiring emergent exploratory surgery and incision and drainage of abscess per Dr. Carter. Recent dental procedure on 03/05/2016 on the right side.Pt. required intubation for airway protection. Sent to [facility] for evaluation by [facility]. Pt. is septic, with significant leukocytosis, has a josefina drain to surgical site with purulent drainage. -continue antibiotics, cultures pending -ID input appreciated -Follow cultures -Dr. Sanderson and Dr. Carter following pt. -CT of neck done, results noted -Appreciate pot fisher input -Monitor for respiratory distress, keep NPO. At risk for airway compromise. -continue IVF -Significant leukocytosis, monitor CBC -to OR today -per Dr. Sanderson-plan for ext tooth #18, i&d left mandible, neck abscess Hypokalemia -K replacement -BMP in am Elevated blood glucose -continue with accuchecks and ISS AMS, has been agitated, unclear of baseline, poss. from sepsis -monitor, may need further work up -Ammonia level ok -continue to monitor, AMS likely sec. to sepsis Hx of spinocerebellar ataxia -pt. wheelchair bound, lives at [facility] -PT eval when stable. Heparin/SCDs for DVT prophylaxis Pepcid for GI prophylaxis Labs in am to OR today condition guarded D/W RN D/W Dr. Estrada This patient was seen by myself and Dr. Estrada, this note is written on his behalf Problem Qualifiers (1) Sepsis: Qualified Code: A41.9 - Sepsis, due to unspecified organism (2) Altered mental status: Qualified Code: R41.0 - Disorientation Fabiana Grossman Mar 17, 2016 09:17
--- NOTE | 2016-03-17 10:47 | HHI.IDPN ---
Subjective Subjective Remarks Notes reviewed Temps ok Mental status same C/S pending WBC slightly lower Antibiotics Unasyn Past Medical History Spinocerebellar ataxia Past Surgical History Right hand surgery Breast augmentation Question section Allergies: Coded Allergies: Codeine (Verified Allergy, Unknown, 02/03/16) Vicodin (Verified Allergy, Unknown, 02/03/16) Objective . Vital Signs Date Time Temp Pulse Resp B/P Pulse Ox O2 Delivery O2 Flow Rate FiO2 03/17/16 08:00 112 03/17/16 08:00 98.5 112 25 128/61 97 03/17/16 07:00 99 Nasal Cannula 2.00 03/17/16 06:00 102 03/17/16 04:00 100 03/17/16 04:00 99.0 100 28 146/69 97 03/17/16 02:00 84 03/17/16 00:00 96 03/17/16 00:00 97.9 96 26 144/69 97 03/16/16 22:00 106 03/16/16 20:00 80 03/16/16 20:00 98.1 80 20 167/81 94 03/16/16 19:00 97 Nasal Cannula 2.00 03/16/16 18:00 88 03/16/16 16:00 82 03/16/16 16:00 98.3 88 30 197/82 98 03/16/16 14:00 103 03/16/16 12:00 88 03/16/16 12:00 98.2 88 22 157/73 98 03/16/16 10:59 97 Nasal Cannula 2.00 03/16/16 03/16/16 03/17/16 15:00 23:00 07:00 Intake Total 663 ml 652 ml 425 ml Output Total 550 ml 1100 ml 400 ml Balance 113 ml -448 ml 25 ml Intake IV Total 663 ml 652 ml 425 ml Output Urine Total 550 ml 1100 ml 400 ml # Bowel Movements 0 0 0 . Laboratory Tests Test 03/16/16 03/17/16 04:15 04:32 White Blood Count 28.5 TH/MM3 34.1 TH/MM3 Red Blood Count 3.27 MIL/MM3 3.81 MIL/MM3 Hemoglobin 10.2 GM/DL 11.7 GM/DL Hematocrit 29.8 % 35.1 % Mean Corpuscular Volume 91.2 FL 92.2 FL Mean Corpuscular Hemoglobin 31.2 PG 30.6 PG Mean Corpuscular Hemoglobin 34.2 % 33.2 % Concent Red Cell Distribution Width 14.7 % 14.4 % Platelet Count 230 TH/MM3 325 TH/MM3 Mean Platelet Volume 9.3 FL 9.0 FL Neutrophils (%) (Auto) 93.2 % % Lymphocytes (%) (Auto) 2.0 % % Monocytes (%) (Auto) 4.6 % % Eosinophils (%) (Auto) 0.0 % % Basophils (%) (Auto) 0.2 % % Neutrophils # (Auto) 26.6 TH/MM3 TH/MM3 Lymphocytes # (Auto) 0.6 TH/MM3 TH/MM3 Monocytes # (Auto) 1.3 TH/MM3 TH/MM3 Eosinophils # (Auto) 0.0 TH/MM3 TH/MM3 Basophils # (Auto) 0.1 TH/MM3 TH/MM3 CBC Comment AUTO DIFF AUTO DIFF Differential Comment AUTO DIFF FINAL DIFF CONFIRMED MANUAL Toxic Granulation 2+ Differential Total Cells 100 Counted Neutrophils % (Manual) 81 % Band Neutrophils % 3 % Lymphocytes % 2 % Monocytes % 7 % Neutrophils # (Manual) 31.0 TH/MM3 Myelocytes 7 % Platelet Estimate NORMAL Platelet Morphology Comment NORMAL Red Cell Morphology Comment NORMAL Laboratory Tests Test 03/16/16 03/16/16 03/17/16 04:15 17:38 04:32 Sodium Level 143 MEQ/L 140 MEQ/L Potassium Level 2.9 MEQ/L 3.0 MEQ/L 4.4 MEQ/L Chloride Level 106 MEQ/L 103 MEQ/L Carbon Dioxide Level 29.4 MEQ/L 27.8 MEQ/L Anion Gap 8 MEQ/L 9 MEQ/L Blood Urea Nitrogen 14 MG/DL 9 MG/DL Creatinine 0.45 MG/DL 0.48 MG/DL Estimat Glomerular Filtration 139 ML/MIN 129 ML/MIN Rate Random Glucose 174 MG/DL 119 MG/DL Calcium Level 8.0 MG/DL 8.4 MG/DL Magnesium Level 1.8 MG/DL 1.7 MG/DL Total Bilirubin 0.4 MG/DL 0.5 MG/DL Aspartate Amino Transf 23 U/L 20 U/L (AST/SGOT) Alanine Aminotransferase 64 U/L 62 U/L (ALT/SGPT) Alkaline Phosphatase 64 U/L 70 U/L Total Protein 5.5 GM/DL 6.3 GM/DL Albumin 2.7 GM/DL 3.0 GM/DL Phosphorus Level 2.3 MG/DL Ammonia LESS THAN 10 MCMOL/L Microbiology Date/Time Procedure Status Source Growth 03/16/16 10:25 Gram Stain - Final Resulted Wound Neck 03/16/16 10:25 Wound Culture Resulted Wound Neck Pending 03/16/16 10:25 Acid Fast Stain Received Wound Neck Pending 03/16/16 10:25 Mycobacterial Culture Received Wound Neck Pending 03/16/16 10:25 Fungal Smear Received Wound Neck Pending 03/16/16 10:25 Fungal Culture Received Wound Neck Pending Physical Exam GENERAL: obtunded, mouth breathing, and has some upper respiratory sounds. SKIN: Cool and dry. No generalized rash. No embolic lesions. HEENT: [place] conjunctivae, no petechia or hemorrhage. No scleral icterus. No injection or drainage. Dry oral mucosa, dentition look okay, has dry green secretions in L side of mouth. Airway patent. NECK: Supple. Has incision in L submandibular area with josefina drain in place , and with small amount of yellow drainage, some swelling noted as well, minimal erythema CARDIOVASCULAR: Regular rate and rhythm without murmurs, gallops, or rubs. RESPIRATORY: Clear to auscultation. Breath sounds equal bilaterally. Has some upper respiratory sounds,. No wheezes, rales, or rhonchi. GASTROINTESTINAL: Abdomen soft, mildly distended, not guarding, no rebound. No hepato-splenomegaly. MUSCULOSKELETAL: Extremities without clubbing, cyanosis, or edema. No joint effusion, or edema noted. NEUROLOGICAL: Obtunded, moans when stimulated, not interactive. No Babinski, no ankle clonus PSYCH: Unable to assess LINE: PIV with no evidence of infection : Membreno cath in place, urine looks clear Assessment & Plan Remarks IMPRESSION Strep anginosus sepsis due to L neck abscess L neck abscess, Bryan's angina S/P I and D deep L neck abscess, S/P L neck exploration Encephalopathy Leukocytosis worse RECOMMENDATION Continue Unasyn Add Cefepime and Diflucan Repeat 2 BC UA and C/S Follow C/S Follow CBC CXR Consider CT head to evaluate her decreased LOC Monitor progress Pati Cerda MD Mar 17, 2016 10:47
[2016-03-17] MEDS: hydrALAZINE HCL 20 MG/ML VIAL IV PUSH PRN (10:48)
[2016-03-17 11:09] LABS: BLOOD, URINE SMALL (NEG); GLUCOSE,URINE 70 mg/dL (NEG); KETONE, URINE 10 mg/dL (NEG); MUCUS URINE FEW /lpf (OCC); NITRITE,URINE NEG (NEG); URINE COLOR YELLOW (YELLW/STRAW)
[2016-03-17 11:10] LABS: COMMENT (UR) CATH-CULT NOT IND; CULTURE IF INDICATED CATH CULTURE NOT IND
[2016-03-17] MEDS: CEFEPIME INJ 2,000 MG in SODIUM CHLORIDE 0.9% INJ 100 ML IV SCH ×2 (11:22→22:19)
[2016-03-17] MEDS ORDERED: ONDANSETRON HCL 4 MG/2 ML VIAL IV PUSH ONE (12:00)
[2016-03-17] MEDS ORDERED: PROPOFOL 200 MG/20 ML AMP IV ONE (12:00)
[2016-03-17] MEDS ORDERED: NEOSTIGMINE 3 MG/3 ML SYR IV ONE (12:00)
[2016-03-17] MEDS ORDERED: PHENYLEPH/NS 1000 MCG/10 ML SYR IV ONE (12:00)
[2016-03-17] MEDS ORDERED: ePHEDrine/NS 50 MG/5 ML SYR IV ONE (12:00)
--- NOTE | 2016-03-17 12:17 | RADRPT ---
EXAM DATE/TIME: 03/17/2016 10:55 [place] COMPARISON: No previous studies available for comparison. INDICATIONS: Pneumonia. MEDICAL HISTORY: Diabetes mellitus type II. SURGICAL HISTORY: None. ENCOUNTER: Subsequent ACUITY: 1 day PAIN SCORE: Non-responsive. LOCATION: Bilateral chest FINDINGS: The heart size is normal. The lungs do appear hyperinflated. There is increased density over the ba ses likely related to overlying soft tissue density in the breast. A definite consolidation is not c learly seen although it would be difficult to absolutely rule out a process at the right base given t he soft tissue density is more prominent on the right side than left side. This is secondary to the patient is mildly rotated towards the left. The costophrenic angles are clear. CONCLUSION: 1. Increased density seen over the bases especially on the right thought to mainly be related to ove rlying soft tissue structures. A definitive consolidation is not clearly seen. 2. The lungs do appear hyperinflated. Anant Hu MD on March 17, 2016 at 11:48 Board Certified Radiologist. This report was verified electronically.
[2016-03-17] MEDS: FLUCONAZOLE 400 MG PREMIX BAG 200 ML IV SCH (13:54)
[2016-03-17] MEDS ORDERED: CHLORHEXIDINE GLUCONATE 0.12% 30 ML CUP ONE (15:31)
[2016-03-17] MEDS ORDERED: LIDOCAINE 2%/EPINEPHrine 1:100,000 30ML MDV ONE (15:32)
[2016-03-17] MEDS ORDERED: BACITRACIN TOP OINT 15 GM TUBE ONE (15:32)
[2016-03-17] MEDS ORDERED: MICROFIBRILLAR COLLAGEN HEMOSTAT 1 GM PKT ONE (15:35)
[2016-03-17 16:00] LABS: APTT (PATIENT) 30.3 SEC (24.3-30.1); INTERNATIONAL NORMALIZED RATIO 1.6 RATIO
[2016-03-17] MEDS ORDERED: BUPIVACAINE/EPINEPHRINE 0.25% PF 30 ML VIAL ONE (16:56)
[2016-03-17] MEDS ORDERED: BUPIVACAINE/EPINEPHRINE 0.5% 50 ML VIAL ONE (16:57)
--- NOTE | 2016-03-17 17:27 | HHI.CCPN ---
Subjective Remarks/Hospital Course 65 y/o woman developed a left submandibular abscess several days after a tooth extraction on the opposite side and required intubation for airway protection and surgical drainage of the left submandibular region for a large abscess containing pus and air. A josefina drain is in place. She will undergoing drainage inside the mouth tomorrow by OMFS Service. Presently on Ceftriaxone on recommendation of ID service at [facility] after review of the cultures. DM, 2 with poor glucose control. 03/17: Increased WBC today and continuing confusion. Notes from OSH indicate that she got very confused after the ativan she received. When I saw her on arrival to [place] she remained agitated and confused. Objective Vital Signs Date Time Temp Pulse Resp B/P Pulse Ox O2 Delivery O2 Flow Rate FiO2 03/17/16 14:00 126 03/17/16 12:00 97.6 24 134/64 98 03/17/16 07:00 Nasal Cannula 2.00 Intake and Output 03/16/16 03/16/16 03/17/16 08:00 16:00 00:00 Intake Total 576 ml 663 ml 652 ml Output Total 450 ml 550 ml 1100 ml Balance 126 ml 113 ml -448 ml Result Diagram: 03/17/16 0432 03/17/16 0432 Objective Remarks Vital Signs Date Time Temp Pulse Resp B/P Pulse Ox O2 Delivery O2 Flow Rate FiO2 03/17/16 06:00 76 03/17/16 02:39 93 Nasal Cannula 2.00 Gen: Confused, elderly appearing woman. Head: Recent incision 3 cm under left mandible with sutures and josefina drain. No erythema but active drainage. Neck: Supple, no stridor. Minimal left side swelling. Lungs: Clear, mild tachypnea. No wheezes or crackles. Heart: NL S1S2, tachycardia. No JVD. Abdomen: Soft, nontender. No peritoneal irritation or guarding. BS active. Extremities: Warm, well perfused. Neuro: Confused. Moves 4 limbs spontaneously. A/P Assessment and Plan Left mandibular abscess - s/p external drainage - Ceftriaxone. - Airway precautions. - HOB up 30 degrees. - No benzodiazepines. DM - poorly controlled - ISS -resume home meds Severe agitation - Haldol PRN UTI - covered with Unasyn DVT/GI prophylaxis - Heparin, SCDs., Pepcid Overall impression: Ongoing septic picture from mandibular abscess. Leo Ellison MD Mar 17, 2016 17:27
[2016-03-17] MEDS ORDERED: fentaNYL CITRATE 250 MCG/5 ML AMP ONE (17:44)
[2016-03-17] MEDS ORDERED: DO NOT ADM ANY ANTICOAGULANT DRUGS XX PRN (18:45)
[2016-03-18] VITALS (14 sets, daily range): BP systolic 132–173; BP diastolic 71–86; PULSE 75–101; RESP 14–26; TEMP 98–100; O2SAT 91–98
[2016-03-18] MEDS: AMPICILLIN-SULBACTAM INJ 3 GM in SODIUM CHLORIDE 0.9% INJ 100 ML IV SCH ×4 (00:34→19:00)
[2016-03-18] MEDS: MORPHINE SULFATE 4 MG/ML INJ IV PRN ×3 (00:35→03:54)
[2016-03-18] MEDS: DEXT 5%-NACL 0.45% 1000 ML INJ 1,000 ML IV SCH ×2 (02:11→15:10)
[2016-03-18 05:49] LABS: HEMATOCRIT 33.6 % (35.0-46.0); MEAN CELL VOLUME 92.5 FL (80.0-100.0); MEAN CORPUSCULAR HGB CONC 32.4 % (32.0-36.0); PLATELET COUNT 332 TH/MM3 (150-450); RED BLOOD COUNT 3.63 MIL/MM3 (4.00-5.30); RED CELL DISTRIBUTION WIDTH 14.8 % (11.6-17.2); WHITE BLOOD COUNT 31.8 TH/MM3 (4.0-11.0)
[2016-03-18 05:53] LABS: HEMO FLAGS AUTO DIFF
[2016-03-18 06:11] LABS: BICARBONATE 30.7 MEQ/L (21.0-32.0); POTASSIUM 3.8 MEQ/L (3.5-5.1)
[2016-03-18] MEDS: HIGH DOSE INSULIN NOVOLOG SUPPLEMENTAL SCALE SQ SCH ×3 (07:03→17:28)
--- NOTE | 2016-03-18 08:01 | HHI.PR ---
Subjective Remarks POD 1 s/p extraction teeth , I&D b/l neck abscess pt seen and examined nurse at bedside less moaning, somewhat following commands Objective Vital Signs Date Time Temp Pulse Resp B/P Pulse Ox O2 Delivery O2 Flow Rate FiO2 03/18/16 06:00 98 03/18/16 05:50 92 03/18/16 05:50 100.0 92 14 144/86 95 03/18/16 02:00 92 03/18/16 00:00 101 03/18/16 00:00 99.5 101 20 135/72 96 03/17/16 22:00 110 03/17/16 20:00 104 03/17/16 20:00 104 20 141/86 98 03/17/16 19:10 98 Nasal Cannula 2.00 03/17/16 19:00 98.9 102 16 161/8 98 03/17/16 19:00 99 Nasal Cannula 2.00 03/17/16 18:30 102 03/17/16 18:20 99.0 98 17 157/98 98 Nasal Cannula 3 03/17/16 18:00 99 15 151/93 98 Nasal Cannula 3 03/17/16 17:45 102 15 144/85 98 Nasal Cannula 3 03/17/16 17:33 99.2 95 15 135/79 97 Nasal Cannula 3 03/17/16 14:00 126 03/17/16 12:00 123 03/17/16 12:00 97.6 123 24 134/64 98 03/17/16 10:00 118 03/17/16 08:00 112 03/17/16 08:00 98.5 112 25 128/61 97 I/O 03/17/16 03/17/16 03/17/16 03/18/16 03/18/16 03/18/16 07:00 15:00 23:00 07:00 15:00 23:00 Intake Total 425 ml 544 ml 1428 ml 523 ml Output Total 400 ml 300 ml 950 ml 250 ml Balance 25 ml 244 ml 478 ml 273 ml Intake IV Total 425 ml 544 ml 828 ml 523 ml Other 600 ml Output Urine Total 400 ml 300 ml 950 ml 250 ml Estimated Blood Loss 0 ml # Bowel Movements 0 0 0 0 Result Diagram: 03/18/1652703/18/16527 Objective Remarks decrease in wbc 31.8 no pus noted draining from right/ left neck I & D site neck soft , trach midline, no erythema Lindsey drains in place no elevation fom/tongue, no vestibule edema, full mouth opening, tissues pink and well perfused extraction/ I&D sites hemostatic pt appears more comfortable today neck dressing dry, clean Assessment and Plan Assessment and Plan POD 1 s/p extraction teeth 31, I&D b/l neck abscess cultures pending continue abx will follow pt appears more comfortable today Venkatesh Sanderson DMD Mar 18, 2016 08:01
--- NOTE | 2016-03-18 08:19 | HHI.PR ---
Subjective Remarks Had dental extraction and I and D with OMFS. Resting. dressing dry. Objective Vital Signs Date Time Temp Pulse Resp B/P Pulse Ox O2 Delivery O2 Flow Rate FiO2 03/18/16 08:16 98 Nasal Cannula 2.00 03/18/16 06:00 98 03/18/16 05:50 92 03/18/16 05:50 100.0 92 14 144/86 95 03/18/16 02:00 92 03/18/16 00:00 101 03/18/16 00:00 99.5 101 20 135/72 96 03/17/16 22:00 110 03/17/16 20:00 104 03/17/16 20:00 104 20 141/86 98 03/17/16 19:10 98 Nasal Cannula 2.00 03/17/16 19:00 98.9 102 16 161/8 98 03/17/16 19:00 99 Nasal Cannula 2.00 03/17/16 18:30 102 03/17/16 18:20 99.0 98 17 157/98 98 Nasal Cannula 3 03/17/16 18:00 99 15 151/93 98 Nasal Cannula 3 03/17/16 17:45 102 15 144/85 98 Nasal Cannula 3 03/17/16 17:33 99.2 95 15 135/79 97 Nasal Cannula 3 03/17/16 14:00 126 03/17/16 12:00 123 03/17/16 12:00 97.6 123 24 134/64 98 03/17/16 10:00 118 I/O 03/17/16 03/17/16 03/17/16 03/18/16 03/18/16 03/18/16 07:00 15:00 23:00 07:00 15:00 23:00 Intake Total 425 ml 544 ml 1428 ml 523 ml Output Total 400 ml 300 ml 950 ml 250 ml Balance 25 ml 244 ml 478 ml 273 ml Intake IV Total 425 ml 544 ml 828 ml 523 ml Other 600 ml Output Urine Total 400 ml 300 ml 950 ml 250 ml Estimated Blood Loss 0 ml # Bowel Movements 0 0 0 0 Result Diagram: 03/18/16 0528 03/18/16 0528 Assessment and Plan Assessment and Plan Dental abscess. Definitive treatment by OMFS. Defer to them. Will follow up prn. Jey Park MD Mar 18, 2016 08:19
[2016-03-18] MEDS: HEPARIN SODIUM - SQ 10,000 UNITS/ML VIAL SQ SCH ×2 (09:00→21:25)
[2016-03-18] MEDS: FAMOTIDINE 20 MG/2 ML VIAL IV SCH ×2 (09:00→21:25)
[2016-03-18 09:27] LABS: CORRECTED NUCLEATED RBC 1 /100 WBC (0-0); METAMYELOCYTES 2 % (0-1); NEUTROPHIL # MANUAL DIFF 30.2 TH/MM3 (1.8-7.7); PLATELET ESTIMATE SMEAR NORMAL (NORMAL); PLATELET MORPHOLOGY NORMAL (NORMAL); POLYS (SEG NEUTROPHILS) 93 % (16-70); SCAN/DIFF FINAL DIFF MANUAL; WBC DIFF SAMPLE 100
[2016-03-18] MEDS: CEFEPIME INJ 2,000 MG in SODIUM CHLORIDE 0.9% INJ 100 ML IV SCH ×2 (11:25→23:45)
[2016-03-18] MEDS: FLUCONAZOLE 400 MG PREMIX BAG 200 ML IV SCH (11:51)
--- NOTE | 2016-03-18 13:40 | HHI.PR ---
Subjective Subjective Remarks s/p extraction teeth , I&D b/l neck abscess 03/17 calm, doesn't talk much tracking with her eyes no fever no agitation no respiratory distress NPO Review of Systems Constitutional Constitutional Remarks 12 point ROS unable to do Vitals/Results Intake & Output 03/17/16 03/17/16 03/18/16 15:00 23:00 07:00 Intake Total 544 ml 1428 ml 523 ml Output Total 300 ml 950 ml 250 ml Balance 244 ml 478 ml 273 ml Intake IV Total 544 ml 828 ml 523 ml Other 600 ml Output Urine Total 300 ml 950 ml 250 ml Estimated Blood Loss 0 ml # Bowel Movements 0 0 0 Vital Signs Vital Signs Date Time Temp Pulse Resp B/P Pulse Ox O2 Delivery O2 Flow Rate FiO2 03/18/16 12:00 98.0 90 19 161/73 91 03/18/16 12:00 75 03/18/16 10:00 87 03/18/16 08:16 98 Nasal Cannula 2.00 03/18/16 08:00 87 03/18/16 08:00 98.0 89 18 147/85 98 03/18/16 07:00 Nasal Cannula 2.00 03/18/16 06:00 98 03/18/16 05:50 92 03/18/16 05:50 100.0 92 14 144/86 95 03/18/16 02:00 92 03/18/16 00:00 101 03/18/16 00:00 99.5 101 20 135/72 96 03/17/16 22:00 110 03/17/16 20:00 104 03/17/16 20:00 104 20 141/86 98 03/17/16 19:10 98 Nasal Cannula 2.00 03/17/16 19:00 98.9 102 16 161/8 98 03/17/16 19:00 99 Nasal Cannula 2.00 03/17/16 18:30 102 03/17/16 18:20 99.0 98 17 157/98 98 Nasal Cannula 3 03/17/16 18:00 99 15 151/93 98 Nasal Cannula 3 03/17/16 17:45 102 15 144/85 98 Nasal Cannula 3 03/17/16 17:33 99.2 95 15 135/79 97 Nasal Cannula 3 03/17/16 14:00 126 CBC/BMP: 03/18/16 0528 03/18/16 0528 Lab Results Laboratory Tests Test 03/17/16 03/18/16 15:35 05:28 Prothrombin Time 18.0 SEC Prothromb Time International 1.6 RATIO Ratio Activated Partial 30.3 SEC Thromboplast Time White Blood Count 31.8 TH/MM3 Red Blood Count 3.63 MIL/MM3 Hemoglobin 10.9 GM/DL Hematocrit 33.6 % Mean Corpuscular Volume 92.5 FL Mean Corpuscular Hemoglobin 30.0 PG Mean Corpuscular Hemoglobin 32.4 % Concent Red Cell Distribution Width 14.8 % Platelet Count 332 TH/MM3 Mean Platelet Volume 9.3 FL Neutrophils (%) (Auto) % Lymphocytes (%) (Auto) % Monocytes (%) (Auto) % Eosinophils (%) (Auto) % Basophils (%) (Auto) % Neutrophils # (Auto) TH/MM3 Lymphocytes # (Auto) TH/MM3 Monocytes # (Auto) TH/MM3 Eosinophils # (Auto) TH/MM3 Basophils # (Auto) TH/MM3 CBC Comment AUTO DIFF Differential Total Cells 100 Counted Neutrophils % (Manual) 93 % Lymphocytes % 1 % Monocytes % 4 % Neutrophils # (Manual) 30.2 TH/MM3 Metamyelocytes 2 % Nucleated Red Blood Cells 1 /100 WBC Differential Comment FINAL DIFF MANUAL Platelet Estimate NORMAL Platelet Morphology Comment NORMAL Sodium Level 137 MEQ/L Potassium Level 3.8 MEQ/L Chloride Level 99 MEQ/L Carbon Dioxide Level 30.7 MEQ/L Anion Gap 7 MEQ/L Blood Urea Nitrogen 9 MG/DL Creatinine 0.46 MG/DL Estimat Glomerular Filtration 135 ML/MIN Rate Random Glucose 187 MG/DL Calcium Level 8.3 MG/DL Microbiology Microbiology 03/17/16 Gram Stain - Final, Resulted 03/17/16 Wound Culture - Preliminary, Resulted NO GROWTH IN 24 HOURS. 03/17/16 Acid Fast Stain, Received Pending 03/17/16 Mycobacterial Culture, Received Pending 03/17/16 Fungal Smear - Final, Resulted NO FUNGAL ELEMENTS SEEN. 03/17/16 Fungal Culture, Resulted Pending 03/17/16 Gram Stain - Final, Resulted 03/17/16 Wound Culture - Preliminary, Resulted NO GROWTH IN 24 HOURS. 03/17/16 Acid Fast Stain, Received Pending 03/17/16 Mycobacterial Culture, Received Pending 03/17/16 Fungal Smear - Final, Resulted NO FUNGAL ELEMENTS SEEN. 03/17/16 Fungal Culture, Resulted Pending Physical Exam General General Appearance: Well Developed, No Acute Distress Eyes Eye Exam: Pupils Equal, Pupils Reactive Ears & Nose Ears & Nose Exam: Nasal Mucosa [place] Throat Throat Remarks oral mucosa dry Neck Neck Remarks neck with dressing, josefina drain to oral mucosa Pulmonary Resp Exam: Decreased Bases Cardiology CV Exam: Regular Gastrointestinal/Abdomen GI Exam: Soft, Non-Tender, Bowel Sounds Present, Non-Distended Genitourinary Exam: Clear Urine Remarks BUSBY Musculoskeletal MS Exam: Atrophy, Unable to Ambulate Integumentary Skin Exam: Warm, Dry Extremeties Extremities Exam: Pedal Pulses Palpable, Trace Edema Neurologic Neuro Exam: Awake, Moving All Extremities Neuro Remarks calm, not talking VTE Prophylaxis VTE Prophylaxis Device: SCDs VTE Prophylaxis Meds: Heparin PUD Prophylasis PUD Remarks PEPCID Assessment/Plan Problem List: (1) Sepsis (2) Altered mental status (3) Blood glucose elevated (4) Hypokalemia (5) Spinocerebellar ataxia (6) left mandibular abscess (7) recent I/D left mandible (8) History of recent dental procedure Assessment/Plan 65 y/o woman with admitted to [facility] on 03/11/2016 swelling to left neck, diagnosed with left mandibular abscess requiring emergent exploratory surgery and incision and drainage of abscess per Dr. Carter. Recent dental procedure on 03/05/2016 on the right side.Pt. required intubation for airway protection. Sent to [facility] for evaluation by [facility]. Pt. is septic, with significant leukocytosis, has a josefina drain to surgical site with purulent drainage. -continue antibiotics, cultures pending -ID input appreciated -Follow cultures, strep species -Dr. Sanderson and Dr. Carter following pt. -CT of neck done, results noted -Appreciate tin recovery worker input -Monitor for respiratory distress, keep NPO. At risk for airway compromise. -continue IVF -WBC trending down, 31.8. --s/p extraction teeth , I&D b/l neck abscess 03/17 -may need TPN vs PEG Hypokalemia-resolved -K replacement -BMP in am Elevated blood glucose -continue with accuchecks and ISS AMS, has been agitated, unclear of baseline, poss. from sepsis, stable. Per daughter, pt. doesn't talk much, responds to family. Appears to be improving -Neuro checks -Ammonia level ok Hx of spinocerebellar ataxia -pt. wheelchair bound, lives at [facility] -PT eval when stable. Heparin/SCDs for DVT prophylaxis Pepcid for GI prophylaxis Labs in am condition guarded Keep in ICU for now D/W RN D/W Dr. Estrada This patient was seen by myself and Dr. Estrada, this note is written on his behalf Problem Qualifiers (1) Sepsis: Qualified Code: A41.9 - Sepsis, due to unspecified organism (2) Altered mental status: Qualified Code: R41.0 - Disorientation Fabiana Grossman Mar 18, 2016 13:40
--- NOTE | 2016-03-18 14:47 | HHI.IDPN ---
Subjective Subjective Remarks Notes reviewed Had tooth extraction and repeat I and D abscess in neck had on both sides Temps ok INitial C/S from [facility] with Strep anginosus in BC and wound C/S here from incision with Strep C/S from OR pending WBC slightly lower Antibiotics Unasyn Cefepime Diflucan Past Medical History Spinocerebellar ataxia Past Surgical History Right hand surgery Breast augmentation Question section Allergies: Coded Allergies: Codeine (Verified Allergy, Unknown, 02/03/16) Vicodin (Verified Allergy, Unknown, 02/03/16) Objective . Vital Signs Date Time Temp Pulse Resp B/P Pulse Ox O2 Delivery O2 Flow Rate FiO2 03/18/16 14:00 90 03/18/16 12:00 98.0 90 19 161/73 91 03/18/16 12:00 75 03/18/16 10:00 87 03/18/16 08:16 98 Nasal Cannula 2.00 03/18/16 08:00 87 03/18/16 08:00 98.0 89 18 147/85 98 03/18/16 07:00 Nasal Cannula 2.00 03/18/16 06:00 98 03/18/16 05:50 92 03/18/16 05:50 100.0 92 14 144/86 95 03/18/16 02:00 92 03/18/16 00:00 101 03/18/16 00:00 99.5 101 20 135/72 96 03/17/16 22:00 110 03/17/16 20:00 104 03/17/16 20:00 104 20 141/86 98 03/17/16 19:10 98 Nasal Cannula 2.00 03/17/16 19:00 98.9 102 16 161/8 98 03/17/16 19:00 99 Nasal Cannula 2.00 03/17/16 18:30 102 03/17/16 18:20 99.0 98 17 157/98 98 Nasal Cannula 3 03/17/16 18:00 99 15 151/93 98 Nasal Cannula 3 03/17/16 17:45 102 15 144/85 98 Nasal Cannula 3 03/17/16 17:33 99.2 95 15 135/79 97 Nasal Cannula 3 03/17/16 03/17/16 03/18/16 15:00 23:00 07:00 Intake Total 544 ml 1428 ml 523 ml Output Total 300 ml 950 ml 250 ml Balance 244 ml 478 ml 273 ml Intake IV Total 544 ml 828 ml 523 ml Other 600 ml Output Urine Total 300 ml 950 ml 250 ml Estimated Blood Loss 0 ml # Bowel Movements 0 0 0 . Laboratory Tests Test 03/17/16 03/18/16 04:32 05:28 White Blood Count 34.1 TH/MM3 31.8 TH/MM3 Red Blood Count 3.81 MIL/MM3 3.63 MIL/MM3 Hemoglobin 11.7 GM/DL 10.9 GM/DL Hematocrit 35.1 % 33.6 % Mean Corpuscular Volume 92.2 FL 92.5 FL Mean Corpuscular Hemoglobin 30.6 PG 30.0 PG Mean Corpuscular Hemoglobin 33.2 % 32.4 % Concent Red Cell Distribution Width 14.4 % 14.8 % Platelet Count 325 TH/MM3 332 TH/MM3 Mean Platelet Volume 9.0 FL 9.3 FL Neutrophils (%) (Auto) % % Lymphocytes (%) (Auto) % % Monocytes (%) (Auto) % % Eosinophils (%) (Auto) % % Basophils (%) (Auto) % % Neutrophils # (Auto) TH/MM3 TH/MM3 Lymphocytes # (Auto) TH/MM3 TH/MM3 Monocytes # (Auto) TH/MM3 TH/MM3 Eosinophils # (Auto) TH/MM3 TH/MM3 Basophils # (Auto) TH/MM3 TH/MM3 CBC Comment AUTO DIFF AUTO DIFF Differential Total Cells 100 100 Counted Neutrophils % (Manual) 81 % 93 % Band Neutrophils % 3 % Lymphocytes % 2 % 1 % Monocytes % 7 % 4 % Neutrophils # (Manual) 31.0 TH/MM3 30.2 TH/MM3 Myelocytes 7 % Differential Comment FINAL DIFF FINAL DIFF MANUAL MANUAL Platelet Estimate NORMAL NORMAL Platelet Morphology Comment NORMAL NORMAL Red Cell Morphology Comment NORMAL Metamyelocytes 2 % Nucleated Red Blood Cells 1 /100 WBC Laboratory Tests Test 03/16/16 03/17/16 03/18/16 17:38 04:32 05:28 Potassium Level 3.0 MEQ/L 4.4 MEQ/L 3.8 MEQ/L Sodium Level 140 MEQ/L 137 MEQ/L Chloride Level 103 MEQ/L 99 MEQ/L Carbon Dioxide Level 27.8 MEQ/L 30.7 MEQ/L Anion Gap 9 MEQ/L 7 MEQ/L Blood Urea Nitrogen 9 MG/DL 9 MG/DL Creatinine 0.48 MG/DL 0.46 MG/DL Estimat Glomerular Filtration 129 ML/MIN 135 ML/MIN Rate Random Glucose 119 MG/DL 187 MG/DL Calcium Level 8.4 MG/DL 8.3 MG/DL Phosphorus Level 2.3 MG/DL Magnesium Level 1.7 MG/DL Total Bilirubin 0.5 MG/DL Aspartate Amino Transf 20 U/L (AST/SGOT) Alanine Aminotransferase 62 U/L (ALT/SGPT) Alkaline Phosphatase 70 U/L Ammonia LESS THAN 10 MCMOL/L Total Protein 6.3 GM/DL Albumin 3.0 GM/DL Microbiology Date/Time Procedure Status Source Growth 03/16/16 10:25 Gram Stain - Final Resulted Wound Neck 03/16/16 10:25 Wound Culture - Preliminary Resulted Streptococcus Species 03/16/16 10:25 Acid Fast Stain - Final Resulted Wound Neck NO ACID FAST BACILLI SEEN 03/16/16 10:25 Mycobacterial Culture Resulted Wound Neck Pending 03/16/16 10:25 Fungal Smear - Final Resulted Wound Neck NO FUNGAL ELEMENTS SEEN. 03/16/16 10:25 Fungal Culture Resulted Wound Neck Pending 03/17/16 12:00 Aerobic Blood Culture - Preliminary Resulted Blood Peripheral NO GROWTH IN 1 DAY 03/17/16 12:00 Anaerobic Blood Culture - Preliminary Resulted Blood Peripheral NO GROWTH IN 1 DAY 03/17/16 12:15 Aerobic Blood Culture - Preliminary Resulted Blood Peripheral NO GROWTH IN 1 DAY 03/17/16 12:15 Anaerobic Blood Culture - Preliminary Resulted Blood Peripheral NO GROWTH IN 1 DAY 03/17/16 17:00 Gram Stain - Final Resulted Wound Mouth 03/17/16 17:00 Wound Culture - Preliminary Resulted Wound Mouth NO GROWTH IN 24 HOURS. 03/17/16 17:00 Acid Fast Stain Received Wound Mouth Pending 03/17/16 17:00 Mycobacterial Culture Received Wound Mouth Pending 03/17/16 17:00 Fungal Smear - Final Resulted Wound Mouth NO FUNGAL ELEMENTS SEEN. 03/17/16 17:00 Fungal Culture Resulted Wound Mouth Pending 03/17/16 17:04 Gram Stain - Final Resulted Wound Mouth 03/17/16 17:04 Wound Culture - Preliminary Resulted Wound Mouth NO GROWTH IN 24 HOURS. 03/17/16 17:04 Acid Fast Stain Received Wound Mouth Pending 03/17/16 17:04 Mycobacterial Culture Received Wound Mouth Pending 03/17/16 17:04 Fungal Smear - Final Resulted Wound Mouth NO FUNGAL ELEMENTS SEEN. 03/17/16 17:04 Fungal Culture Resulted Wound Mouth Pending Imaging Chest X-Ray 03/17/16 0000 Signed Impressions: Service Date/Time: Thursday, March 17, 2016 10:55 - CONCLUSION: 1. Increased density seen over the bases especially on the right thought to mainly be related to overlying soft tissue structures. A definitive consolidation is not clearly seen. 2. The lungs do appear hyperinflated. Anant Hu MD Neck CT 03/16/16 0000 Signed Impressions: Service Date/Time: Wednesday, March 16, 2016 09:37 - CONCLUSION: Dental abscess as described above extending from tonsillar fossa around the mandible to the parotid space with extension along the base of the tongue to the arch of the mandible. Air and fluid is evident. Sarkis Kurtz MD FACR Physical Exam GENERAL: More awake, focusing, mumbling. SKIN: Cool and dry. No generalized rash. No embolic lesions. HEENT: [place] conjunctivae, no petechia or hemorrhage. No scleral icterus. No injection or drainage. Dry oral mucosa, dentition look okay, has dry green secretions in L side of mouth. Airway patent. NECK: Now has 3 incisions with josefina drains in place, looks like 2 on L, one on R with bloody drainage, and has some mild erythema CARDIOVASCULAR: Regular rate and rhythm without murmurs, gallops, or rubs. RESPIRATORY: Clear to auscultation. Breath sounds equal bilaterally. Has some upper respiratory sounds. GASTROINTESTINAL: Abdomen soft, mildly distended, not guarding, no rebound. No hepato-splenomegaly. MUSCULOSKELETAL: Extremities without clubbing, cyanosis, or edema. No joint effusion, or edema noted. NEUROLOGICAL: Awake, focusing. PSYCH: Unable to assess LINE: PIV with no evidence of infection : Membreno cath in place, urine looks clear Assessment & Plan Remarks IMPRESSION Strep anginosus sepsis due to L neck abscess Yoan neck abscess S/P I and D deep L neck abscess, S/P L neck exploration in [facility] Now S/P I and D yoan neck abscess and tooth extraction Encephalopathy Leukocytosis RECOMMENDATION Continue Unasyn Continue Cefepime and Diflucan Follow C/S Follow CBC Monitor progress Pati Cerda MD Mar 18, 2016 14:47
--- NOTE | 2016-03-18 20:43 | EKG ---
Date Performed: 03/17/2016 Time Performed: 13:34:14 PTAGE: 65 years EKG: SINUS TACHYCARDIA WITH FREQUENT VENTRICULAR PREMATURE COMPLEXES RIGHT ATRIAL ENLARGEMENT LE FT ATRIAL ENLARGEMENT ABNORMAL ECG NO PREVIOUS TRACING DOCTOR: Taqueria Patton Interpretating Date/Time 03/18/2016 20:41:15
[2016-03-18] MEDS: SODIUM CHLORIDE 0.9% FLUSH 5 ML FLUSH FLUSH SCH (21:25)
[2016-03-19] VITALS (13 sets, daily range): BP systolic 139–166; BP diastolic 71–84; PULSE 71–94; RESP 12–16; TEMP 98.3–99.1; O2SAT 96–98
[2016-03-19] MEDS: AMPICILLIN-SULBACTAM INJ 3 GM in SODIUM CHLORIDE 0.9% INJ 100 ML IV SCH ×4 (01:55→17:39)
[2016-03-19] MEDS: HIGH DOSE INSULIN NOVOLOG SUPPLEMENTAL SCALE SQ SCH ×4 (01:55→18:00)
[2016-03-19] MEDS: DEXT 5%-NACL 0.45% 1000 ML INJ 1,000 ML IV SCH ×2 (03:40→17:50)
[2016-03-19 06:41] LABS: INTERNATIONAL NORMALIZED RATIO 1.5 RATIO; PROTHROMBIN TIME - PATIENT 16.3 SEC (9.8-11.6)
[2016-03-19 06:53] LABS: AUTOMATED NEUTROPHIL # 20.9 TH/MM3 (1.8-7.7); HEMATOCRIT 32.5 % (35.0-46.0); LYMPH % 4.9 % (9.0-44.0); LYMPHOCYTE # 1.2 TH/MM3 (1.0-4.8); MEAN CELL VOLUME 91.4 FL (80.0-100.0); MEAN CORPUSCULAR HEMOGLOBIN 30.9 PG (27.0-34.0); MEAN CORPUSCULAR HGB CONC 33.8 % (32.0-36.0); MONO % 6.1 % (0.0-8.0); PLATELET COUNT 351 TH/MM3 (150-450); RED BLOOD COUNT 3.56 MIL/MM3 (4.00-5.30); RED CELL DISTRIBUTION WIDTH 14.2 % (11.6-17.2); WHITE BLOOD COUNT 23.5 TH/MM3 (4.0-11.0)
[2016-03-19 07:01] LABS: HEMO FLAGS AUTO DIFF
[2016-03-19 07:02] LABS: BICARBONATE 30.4 MEQ/L (21.0-32.0); POTASSIUM 3.2 MEQ/L (3.5-5.1)
--- NOTE | 2016-03-19 07:48 | HHI.PR ---
Subjective Remarks POD 2 s/p extraction teeth , I&D b/l neck abscess pt seen and examined nurse at bedside less moaning, following commands better today answering questions Objective Vital Signs Date Time Temp Pulse Resp B/P Pulse Ox O2 Delivery O2 Flow Rate FiO2 03/19/16 06:00 82 03/19/16 04:00 74 03/19/16 04:00 98.8 74 14 145/76 96 03/19/16 02:00 76 03/19/16 00:00 80 03/19/16 00:00 99.1 80 13 162/78 96 03/18/16 22:00 90 03/18/16 21:58 95 21 03/18/16 20:00 82 03/18/16 20:00 98.9 82 15 132/71 95 03/18/16 19:00 95 Nasal Cannula 2.00 03/18/16 18:00 84 03/18/16 16:00 98.0 96 26 173/84 97 03/18/16 16:00 89 03/18/16 14:00 90 03/18/16 12:00 98.0 90 19 161/73 91 03/18/16 12:00 75 03/18/16 10:00 87 03/18/16 08:16 98 Nasal Cannula 2.00 03/18/16 08:00 87 03/18/16 08:00 98.0 89 18 147/85 98 I/O 03/18/16 03/18/16 03/18/16 03/19/16 03/19/16 03/19/16 07:00 15:00 23:00 07:00 15:00 23:00 Intake Total 523 ml 936 ml 688 ml 743 ml Output Total 250 ml 250 ml 675 ml 1000 ml Balance 273 ml 686 ml 13 ml -257 ml Intake IV Total 523 ml 936 ml 688 ml 743 ml Output Urine Total 250 ml 250 ml 675 ml 1000 ml # Bowel Movements 0 0 0 0 Result Diagram: 03/19/16 0553 03/19/16 0553 Objective Remarks decrease in wbc 23.5 residual pus noted draining from left neck I & D site neck soft , trach midline, no erythema [place] drains in place no elevation fom/tongue, no vestibule edema, full mouth opening, tissues pink and well perfused extraction/ I&D sites hemostatic pt appears more comfortable today Assessment and Plan Assessment and Plan POD 2 s/p extraction teeth 18/31, I&D b/l neck abscess neck culture - alpha strep,, no fungi, final cultures pending continue abx will follow pt appears more comfortable today removed two intraoral drains, 3 neck drains remaining continue dressing change Venkatesh Sanderson DMD Mar 19, 2016 07:48
[2016-03-19] MEDS: HEPARIN SODIUM - SQ 10,000 UNITS/ML VIAL SQ SCH ×2 (08:34→20:54)
[2016-03-19] MEDS: SODIUM CHLORIDE 0.9% FLUSH 5 ML FLUSH FLUSH SCH ×2 (08:35→20:54)
[2016-03-19] MEDS: FAMOTIDINE 20 MG/2 ML VIAL IV SCH ×2 (08:35→20:54)
[2016-03-19 09:15] LABS: MYELOCYTES 3 % (0-0); NEUTROPHIL # MANUAL DIFF 21.6 TH/MM3 (1.8-7.7); POLYS (SEG NEUTROPHILS) 89 % (16-70); SCAN/DIFF FINAL DIFF MANUAL; WBC DIFF SAMPLE 100
[2016-03-19 09:16] LABS: PLATELET ESTIMATE SMEAR NORMAL (NORMAL); PLATELET MORPHOLOGY NORMAL (NORMAL)
[2016-03-19] MEDS: CEFEPIME INJ 2,000 MG in SODIUM CHLORIDE 0.9% INJ 100 ML IV SCH ×2 (12:44→23:46)
[2016-03-19] MEDS: FLUCONAZOLE 400 MG PREMIX BAG 200 ML IV SCH (12:44)
--- NOTE | 2016-03-19 15:03 | HHI.PR ---
Subjective History of Present Illness Patient resting comfortably in bed More awake and responsive Follow simple commands Forgetful, pleasantly confused Pain control No fever or chills No shortness of breath Offers no other complaints Vitals/Results Intake & Output 03/18/16 03/18/16 03/19/16 15:00 23:00 07:00 Intake Total 936 ml 688 ml 743 ml Output Total 250 ml 675 ml 1000 ml Balance 686 ml 13 ml -257 ml Intake IV Total 936 ml 688 ml 743 ml Output Urine Total 250 ml 675 ml 1000 ml # Bowel Movements 0 0 0 Vital Signs Vital Signs Date Time Temp Pulse Resp B/P Pulse Ox O2 Delivery O2 Flow Rate FiO2 03/19/16 14:00 78 03/19/16 12:00 80 03/19/16 12:00 98.8 79 14 141/81 97 03/19/16 10:00 71 03/19/16 08:00 87 03/19/16 08:00 98.3 87 12 139/71 97 03/19/16 08:00 95 Nasal Cannula 2.00 03/19/16 06:00 82 03/19/16 04:00 74 03/19/16 04:00 98.8 74 14 145/76 96 03/19/16 02:00 76 03/19/16 00:00 80 03/19/16 00:00 99.1 80 13 162/78 96 03/18/16 22:00 90 03/18/16 21:58 95 21 03/18/16 20:00 82 03/18/16 20:00 98.9 82 15 132/71 95 03/18/16 19:00 95 Nasal Cannula 2.00 03/18/16 18:00 84 03/18/16 16:00 98.0 96 26 173/84 97 03/18/16 16:00 89 CBC/BMP: 03/19/16 0553 03/19/16 0553 Lab Results Laboratory Tests Test 03/19/16 03/19/16 05:53 06:07 White Blood Count 23.5 TH/MM3 Red Blood Count 3.56 MIL/MM3 Hemoglobin 11.0 GM/DL Hematocrit 32.5 % Mean Corpuscular Volume 91.4 FL Mean Corpuscular Hemoglobin 30.9 PG Mean Corpuscular Hemoglobin 33.8 % Concent Red Cell Distribution Width 14.2 % Platelet Count 351 TH/MM3 Mean Platelet Volume 8.9 FL Neutrophils (%) (Auto) 89.0 % Lymphocytes (%) (Auto) 4.9 % Monocytes (%) (Auto) 6.1 % Eosinophils (%) (Auto) 0.0 % Basophils (%) (Auto) 0.0 % Neutrophils # (Auto) 20.9 TH/MM3 Lymphocytes # (Auto) 1.2 TH/MM3 Monocytes # (Auto) 1.4 TH/MM3 Eosinophils # (Auto) 0.0 TH/MM3 Basophils # (Auto) 0.0 TH/MM3 CBC Comment AUTO DIFF Differential Total Cells 100 Counted Neutrophils % (Manual) 89 % Lymphocytes % 3 % Monocytes % 5 % Neutrophils # (Manual) 21.6 TH/MM3 Myelocytes 3 % Differential Comment FINAL DIFF MANUAL Platelet Estimate NORMAL Platelet Morphology Comment NORMAL Sodium Level 135 MEQ/L Potassium Level 3.2 MEQ/L Chloride Level 97 MEQ/L Carbon Dioxide Level 30.4 MEQ/L Anion Gap 8 MEQ/L Blood Urea Nitrogen 8 MG/DL Creatinine 0.34 MG/DL Estimat Glomerular Filtration 192 ML/MIN Rate Random Glucose 101 MG/DL Calcium Level 8.1 MG/DL Prothrombin Time 16.3 SEC Prothromb Time International 1.5 RATIO Ratio Physical Exam General General Appearance: No Acute Distress, Comfortable Appearance Remarks Frail elderly female Eyes Eye Exam: Pupils Equal, Sclera White Ears & Nose Ears & Nose Exam: Nasal Mucosa [place] Throat Throat Exam: Oral Mucosa [place] & Moist Neck Neck Remarks External drain in place on the left side of neck Pulmonary Resp Exam: Breath Sounds Equal, No Distress Cardiology CV Exam: Regular, Normal Sinus Rhythm Gastrointestinal/Abdomen GI Exam: Soft, Non-Tender, Bowel Sounds Present Genitourinary Exam: Clear Urine Musculoskeletal MS Exam: Atrophy, Unable to Ambulate Integumentary Skin Exam: Warm, Dry Extremeties Extremities Exam: Pedal Pulses Palpable, Trace Edema Neurologic Neuro Exam: Alert, Awake, Moving All Extremities VTE Prophylaxis VTE Prophylaxis Device: SCDs VTE Prophylaxis Meds: Heparin Assessment/Plan Problem List: (1) Sepsis (2) Altered mental status (3) Blood glucose elevated (4) Hypokalemia (5) Spinocerebellar ataxia (6) left mandibular abscess (7) recent I/D left mandible (8) History of recent dental procedure Assessment/Plan 65 y/o woman with admitted to [facility] on 03/11/2016 b/l neck, & left mandibular abscess Streptococcus anginosus S/P emergent exploratory surgery and i&d of abscess per Dr. Carter. Recent dental procedure on 03/05/2016 on the right side. s/p intubation for airway protection. [place] [facility] [place] [facility] s/p extraction teeth , s/p I&D b/l neck abscess 03/[address] Sanderson 2 of the oral drains were removed 3 external drain present in neck d/w Dr Sanderson , he rec to start po feeding if pt can swallow will consult Speech therapy for swallow ashish wound care analgesic s/p sepsis -continue antibiotics, -ID Follow up -Dr. Sanderson and Dr. Carter following pt. -CT of neck noted - keep NPO, until cleared by Speech therapy .-continue IVF - replace kcl -WBC trending down, - Hypokalemia-replace & monitor -BMP in am Elevated blood glucose -continue with accuchecks and ISS AMS, suspect metabolic Encephalopathy Appears to be improving -Neuro checks -Ammonia level ok Hx of spinocerebellar ataxia -pt. wheelchair bound, lives at [facility] -PT eval when stable. Heparin/SCDs for DVT prophylaxis Pepcid for GI prophylaxis Labs in am condition guarded d/w RN D/W RN D/W Dr. Estrada This patient was seen by myself and Dr. Estrada, this note is written on his behalf Problem Qualifiers (1) Sepsis: Qualified Code: A41.9 - Sepsis, due to unspecified organism (2) Altered mental status: Qualified Code: R41.0 - Disorientation Ana Estrada MD Mar 19, 2016 15:03
[2016-03-19] MEDS ORDERED: POTASSIUM CHLOR 20 MEQ PREMIX 100 ML IV ONE (16:00)
--- NOTE | 2016-03-19 16:51 | HHI.IDPN ---
Subjective Subjective Remarks Notes reviewed Temps occ low grade Mental status improved, seems back to baseline C/S reviewed Had tooth extraction and repeat I and D abscess in neck had on both sides 03/17 Initial C/S from [facility] with Strep anginosus in BC and wound C/S here from incision with Strep, ruling out anaerobes C/S from skin naga WBC improving Antibiotics Unasyn Cefepime Diflucan Past Medical History Spinocerebellar ataxia Past Surgical History Right hand surgery Breast augmentation Question section Allergies: Coded Allergies: Codeine (Verified Allergy, Unknown, 02/03/16) Vicodin (Verified Allergy, Unknown, 02/03/16) Objective . Vital Signs Date Time Temp Pulse Resp B/P Pulse Ox O2 Delivery O2 Flow Rate FiO2 03/19/16 14:00 78 03/19/16 12:00 80 03/19/16 12:00 98.8 79 14 141/81 97 03/19/16 10:00 71 03/19/16 08:00 87 03/19/16 08:00 98.3 87 12 139/71 97 03/19/16 08:00 95 Nasal Cannula 2.00 03/19/16 06:00 82 03/19/16 04:00 74 03/19/16 04:00 98.8 74 14 145/76 96 03/19/16 02:00 76 03/19/16 00:00 80 03/19/16 00:00 99.1 80 13 162/78 96 03/18/16 22:00 90 03/18/16 21:58 95 21 03/18/16 20:00 82 03/18/16 20:00 98.9 82 15 132/71 95 03/18/16 19:00 95 Nasal Cannula 2.00 03/18/16 18:00 84 03/18/16 03/18/16 03/19/16 15:00 23:00 07:00 Intake Total 936 ml 688 ml 743 ml Output Total 250 ml 675 ml 1000 ml Balance 686 ml 13 ml -257 ml Intake IV Total 936 ml 688 ml 743 ml Output Urine Total 250 ml 675 ml 1000 ml # Bowel Movements 0 0 0 . Laboratory Tests Test 03/18/16 03/19/16 05:28 05:53 White Blood Count 31.8 TH/MM3 23.5 TH/MM3 Red Blood Count 3.63 MIL/MM3 3.56 MIL/MM3 Hemoglobin 10.9 GM/DL 11.0 GM/DL Hematocrit 33.6 % 32.5 % Mean Corpuscular Volume 92.5 FL 91.4 FL Mean Corpuscular Hemoglobin 30.0 PG 30.9 PG Mean Corpuscular Hemoglobin 32.4 % 33.8 % Concent Red Cell Distribution Width 14.8 % 14.2 % Platelet Count 332 TH/MM3 351 TH/MM3 Mean Platelet Volume 9.3 FL 8.9 FL Neutrophils (%) (Auto) % 89.0 % Lymphocytes (%) (Auto) % 4.9 % Monocytes (%) (Auto) % 6.1 % Eosinophils (%) (Auto) % 0.0 % Basophils (%) (Auto) % 0.0 % Neutrophils # (Auto) TH/MM3 20.9 TH/MM3 Lymphocytes # (Auto) TH/MM3 1.2 TH/MM3 Monocytes # (Auto) TH/MM3 1.4 TH/MM3 Eosinophils # (Auto) TH/MM3 0.0 TH/MM3 Basophils # (Auto) TH/MM3 0.0 TH/MM3 CBC Comment AUTO DIFF AUTO DIFF Differential Total Cells 100 100 Counted Neutrophils % (Manual) 93 % 89 % Lymphocytes % 1 % 3 % Monocytes % 4 % 5 % Neutrophils # (Manual) 30.2 TH/MM3 21.6 TH/MM3 Metamyelocytes 2 % Nucleated Red Blood Cells 1 /100 WBC Differential Comment FINAL DIFF FINAL DIFF MANUAL MANUAL Platelet Estimate NORMAL NORMAL Platelet Morphology Comment NORMAL NORMAL Myelocytes 3 % Laboratory Tests Test 03/18/16 03/19/16 05:28 05:53 Sodium Level 137 MEQ/L 135 MEQ/L Potassium Level 3.8 MEQ/L 3.2 MEQ/L Chloride Level 99 MEQ/L 97 MEQ/L Carbon Dioxide Level 30.7 MEQ/L 30.4 MEQ/L Anion Gap 7 MEQ/L 8 MEQ/L Blood Urea Nitrogen 9 MG/DL 8 MG/DL Creatinine 0.46 MG/DL 0.34 MG/DL Estimat Glomerular Filtration 135 ML/MIN 192 ML/MIN Rate Random Glucose 187 MG/DL 101 MG/DL Calcium Level 8.3 MG/DL 8.1 MG/DL Microbiology Date/Time Procedure Status Source Growth 03/17/16 12:00 Aerobic Blood Culture - Preliminary Resulted Blood Peripheral NO GROWTH IN 2 DAYS 03/17/16 12:00 Anaerobic Blood Culture - Preliminary Resulted Blood Peripheral NO GROWTH IN 2 DAYS 03/17/16 12:15 Aerobic Blood Culture - Preliminary Resulted Blood Peripheral NO GROWTH IN 2 DAYS 03/17/16 12:15 Anaerobic Blood Culture - Preliminary Resulted Blood Peripheral NO GROWTH IN 2 DAYS 03/17/16 17:00 Gram Stain - Final Resulted Wound Mouth 03/17/16 17:00 Wound Culture - Preliminary Resulted Wound Mouth HEAVY GROWTH NORMAL SKIN NAGA... 03/17/16 17:00 Acid Fast Stain - Final Resulted Wound Mouth NO ACID FAST BACILLI SEEN 03/17/16 17:00 Mycobacterial Culture Resulted Wound Mouth Pending 03/17/16 17:00 Fungal Smear - Final Resulted Wound Mouth NO FUNGAL ELEMENTS SEEN. 03/17/16 17:00 Fungal Culture Resulted Wound Mouth Pending 03/17/16 17:04 Gram Stain - Final Resulted Wound Mouth 03/17/16 17:04 Wound Culture - Preliminary Resulted Wound Mouth HEAVY GROWTH NORMAL SKIN NAGA... 03/17/16 17:04 Acid Fast Stain - Final Resulted Wound Mouth NO ACID FAST BACILLI SEEN 03/17/16 17:04 Mycobacterial Culture Resulted Wound Mouth Pending 03/17/16 17:04 Fungal Smear - Final Resulted Wound Mouth NO FUNGAL ELEMENTS SEEN. 03/17/16 17:04 Fungal Culture Resulted Wound Mouth Pending Imaging Chest X-Ray 03/17/16 0000 Signed Impressions: Service Date/Time: Thursday, March 17, 2016 10:55 - CONCLUSION: 1. Increased density seen over the bases especially on the right thought to mainly be related to overlying soft tissue structures. A definitive consolidation is not clearly seen. 2. The lungs do appear hyperinflated. Anant Hu MD Neck CT 03/16/16 0000 Signed Impressions: Service Date/Time: Wednesday, March 16, 2016 09:37 - CONCLUSION: Dental abscess as described above extending from tonsillar fossa around the mandible to the parotid space with extension along the base of the tongue to the arch of the mandible. Air and fluid is evident. Sarkis Kurtz MD FACR Physical Exam GENERAL: More awake, focusing, confused SKIN: Cool and dry. No generalized rash. No embolic lesions. HEENT: [place] conjunctivae, no petechia or hemorrhage. No scleral icterus. Airway patent. NECK: Now has 3 incisions with josefina drains in place, looks like 2 on L, one on R with bloody drainage, and has some mild erythema CARDIOVASCULAR: Regular rate and rhythm without murmurs, gallops, or rubs. RESPIRATORY: Clear to auscultation. Breath sounds equal bilaterally. Has some upper respiratory sounds. GASTROINTESTINAL: Abdomen soft, mildly distended, not guarding, no rebound. No hepato-splenomegaly. MUSCULOSKELETAL: Extremities without clubbing, cyanosis, or edema. No joint effusion, or edema noted. NEUROLOGICAL: Awake, focusing. PSYCH: Unable to assess LINE: PIV with no evidence of infection : Membreno cath in place, urine looks clear Assessment & Plan Remarks IMPRESSION Strep anginosus sepsis due to L neck abscess Yoan neck abscess S/P I and D deep L neck abscess, S/P L neck exploration in [facility] Now S/P I and D yoan neck abscess and tooth extraction Encephalopathy, better Leukocytosis, improving RECOMMENDATION Continue Unasyn Continue Cefepime and Diflucan Follow C/S Follow CBC Monitor progress Pati Cerda MD Mar 19, 2016 16:51
[2016-03-19] MEDS: MORPHINE SULFATE 4 MG/ML INJ IV PRN (23:50)
[2016-03-20] VITALS (15 sets, daily range): BP systolic 154–181; BP diastolic 82–101; PULSE 72–102; RESP 14–25; TEMP 98.2–98.7; O2SAT 96–98
[2016-03-20] MEDS: AMPICILLIN-SULBACTAM INJ 3 GM in SODIUM CHLORIDE 0.9% INJ 100 ML IV SCH ×4 (00:46→17:37)
[2016-03-20 05:20] LABS: HEMATOCRIT 33.2 % (35.0-46.0); MEAN CELL VOLUME 93.3 FL (80.0-100.0); MEAN CORPUSCULAR HEMOGLOBIN 31.2 PG (27.0-34.0); MEAN CORPUSCULAR HGB CONC 33.4 % (32.0-36.0); PLATELET COUNT 410 TH/MM3 (150-450); RED BLOOD COUNT 3.56 MIL/MM3 (4.00-5.30); RED CELL DISTRIBUTION WIDTH 14.1 % (11.6-17.2); REVIEW FLAG FINAL; WHITE BLOOD COUNT 22.5 TH/MM3 (4.0-11.0)
[2016-03-20 05:29] LABS: BICARBONATE 30.2 MEQ/L (21.0-32.0); POTASSIUM 3.2 MEQ/L (3.5-5.1)
[2016-03-20] MEDS: HIGH DOSE INSULIN NOVOLOG SUPPLEMENTAL SCALE SQ SCH ×4 (05:50→18:00)
[2016-03-20] MEDS: MORPHINE SULFATE 4 MG/ML INJ IV PRN ×4 (05:52→23:50)
[2016-03-20] MEDS: ICU - POTASSIUM CHLORIDE/AQUEOUS SOLN 40 MEQ/100 ML IVPB IV PRN (05:52)
[2016-03-20] MEDS: METOPROLOL TARTRATE 5 MG/5 ML VIAL IV PUSH PRN (06:59)
[2016-03-20] MEDS: DEXT 5%-NACL 0.45% 1000 ML INJ 1,000 ML IV SCH ×2 (07:10→21:35)
[2016-03-20] MEDS: FAMOTIDINE 20 MG/2 ML VIAL IV SCH ×2 (08:33→21:33)
[2016-03-20] MEDS: SODIUM CHLORIDE 0.9% FLUSH 5 ML FLUSH FLUSH SCH ×2 (08:34→21:33)
[2016-03-20] MEDS: HEPARIN SODIUM - SQ 10,000 UNITS/ML VIAL SQ SCH ×2 (08:34→21:34)
--- NOTE | 2016-03-20 10:37 | MP ---
cc: JUANKYA DMD DATE OF SURGERY: 03/17/2016 PREOPERATIVE DIAGNOSIS 1. Decayed teeth #31 and 18. 2. Bilateral neck abscess. POSTOPERATIVE DIAGNOSIS 1. Decayed teeth #31 and 18. 2. Bilateral neck abscess. SURGEON Dr. Sanderson CARDIO TECH [place] ANESTHESIA General; 2% lidocaine with 1:100,000 epinephrine approximately 3 cc; 0.5% Marcaine with 1:200,000 epinephrine approximately 4 cc at end of the procedure. PROCEDURE 1. Examination under anesthesia. 2. Extraction of teeth #31 and 18. 3. Incision and drainage bilateral neck abscess. COMPLICATIONS None. DISPOSITION The patient tolerated the procedure well, was extubated and taken to the PACU. DAINS8 Four 1/4 inch [place] drains. INDICATIONS FOR PROCEDURE This is a 65-year-old female who was transferred from [facility] two days ago. She had an abscess in the left submandibular region that was drained by Dr. Carter, but the patient still continued to have pus drainage. I accepted her for transfer for evaluation and treatment. I did speak to her dentist who said that tooth #31 was decayed and referred her to an oral surgeon but the patient never went there. So the plan today was to extract the tooth #18 and I&D the left neck abscess again. Based on the scan and clinical exam also plan for extraction of tooth #31. Benefits, risks and indications of the procedure, the procedure in detail and the options of no treatment including alternatives were discussed with her daughter. All questions and concerns were addressed. Consent is signed in the chart. DETAILS OF PROCEDURE The patient was met perioperatively. She was taken to operating suite #12, put on the table in supine position. She was intubated orally. Eyes were taped shut. All pressure points were padded. At this time a timeout was taken to identify the patient, sites, procedure and surgeon, and all were in agreement. I went to the sink to scrub and came back to wear the sterile attire. The patient was draped in normal sterile fashion. Note that the Betadine prep was already done. A bite block was gently placed in the mouth. The back of the throat was suctioned. A moistened Ray-Mami was used as a throat pack. The mouth was then irrigated with Peridex solution. On examination and palpation of the neck pus was coming out. On palpation of the #18 and 31 region I did note intraoral edema and vestibular edema. 2% lidocaine with 100,000 epinephrine was injected bilaterally as inferior alveolar nerve blocks and bilateral buccal region. The needle was changed and then again injected in the region of the neck on the left side where the I&D was supposed to be also done. A [place] drain is still present. Then I used a 15 blade and made an incision around #18 buccal/lateral hockey stick coming around it over the alveolar crest of 18. Reflected the flap at the periosteum and on the buccal aspect of the inferior border of the mandible subperiosteal all the way down to the angle of the mandible, not too much pus noted. I reflected a flap on the lingual and I went down to the floor posteriorly some pus came right out of there. I sent that for culture. A trough was made on tooth #18 and tooth #18 was delivered. The site was all irrigated now with saline solution. The patient already had an existing incision made by Dr. Carter. So I put a hemostat and went straight up and got some more pus out of there, posterior and anterior, superior and inferior in all directions. I also took the beak of the hemostat gently on the lingual aspect of the mandible and came out to the lingual aspect of tooth #18, put a 1/4 inch [place] there and attached it with a 2-0 silk suture. I also put another 1/4 [place] drain on the left side of the lateral aspect of the mandible going to the angle of the mandible, sutured that with a 2-0 silk suture. The soft tissue was closed with 3-0 chromic suture on the left side. I then went to the right side. Attention was placed at tooth #31. Since the patient was supposed to have tooth #31 taken out and the dentist told me to take care of it, I proceeded to take this out. I did discuss this with the patient's daughter. There is no telling when the patient will be able to get around to taking that tooth out and I did not want an infection occurring again. Note, that a small trough was made on 31. The same thing was done on 18. A trough was made and then elevator forceps used to take the 31 out just like 18. However, as soon as I took 31 out pus came out of the extraction socket. That pus was sent for culture. It was very unusual that pus occurring in tooth #31 was also tracking down to the left side of the mandible. A little lidocaine was given on the right side of the neck. A stab incision was made on the right neck and with dissection of that I did not get any pus out of the neck at this point. I then went to the lingual aspect of the mandible, anterior and superior, medial and inferior, again no pus was noted. I then put a 1/4 Lindsey drain in the neck on the right side and sutured into position using 2-0 silk suture. Then again on the #31 site I went down to the buccal aspect, lateral aspect of the mandible down to the superior and inferior border of the mandible subperiosteally, then all the way down to the angle of the mandible. No pus was noted. I put another 1/4 inch [place] there and used 2-0 silk suture over that to hold the drain into position. The site was now closed with 3-0 chromic suture. Once this was all done the mouth was irrigated with saline solution. The back of the throat was suctioned. The Ray-Mami was taken out. The bite block was taken out. A 4x4 was placed on the neck and a [place] dressing was placed on the neck. The patient tolerated the procedure well. No complications noted. The specimens were sent for culture and sensitivity, Gram stain, anaerobes and fundi. All sponge and needle counts were accounted for. Kya Sanderson DMD RRT/CHELSEY /6:09 PM /9:57 AM KADIE
[2016-03-20] MEDS: FLUCONAZOLE 400 MG PREMIX BAG 200 ML IV SCH (11:05)
[2016-03-20] MEDS: CEFEPIME INJ 2,000 MG in SODIUM CHLORIDE 0.9% INJ 100 ML IV SCH ×2 (11:05→22:47)
--- NOTE | 2016-03-20 13:34 | HHI.IDPN ---
Subjective Subjective Remarks Notes reviewed Temps occ low grade D/W RN Mental status better yesterday than today. Moaning a lot today, but she follows commands 3 josefina drain in neck, drainage is bloody, one of drain in neck continuous into L side of her mouth - which also has bloody drainage C/S reviewed Had tooth extraction and repeat I and D abscess in neck had on both sides 03/17 Initial C/S from [facility] with Strep anginosus in [place] and wound C/S here from incision with Strep, ruling out anaerobes C/S from skin naga Antibiotics Unasyn Cefepime Diflucan Past Medical History Spinocerebellar ataxia Past Surgical History Right hand surgery Breast augmentation Question section Allergies: Coded Allergies: Codeine (Verified Allergy, Unknown, 02/03/16) Vicodin (Verified Allergy, Unknown, 02/03/16) Objective . Vital Signs Date Time Temp Pulse Resp B/P Pulse Ox O2 Delivery O2 Flow Rate FiO2 03/20/16 12:00 88 03/20/16 12:00 98.3 88 23 154/98 97 03/20/16 10:00 91 03/20/16 09:19 97 03/20/16 09:11 97 03/20/16 08:00 98.3 74 14 163/84 97 03/20/16 08:00 96 03/20/16 08:00 97 Nasal Cannula 2.00 03/20/16 06:00 96 03/20/16 04:00 98.2 74 23 172/82 97 03/20/16 04:00 84 03/20/16 02:00 72 03/20/16 00:00 74 23 172/82 97 03/20/16 00:00 74 03/19/16 22:00 94 03/19/16 20:42 96 21 03/19/16 20:00 98.3 76 13 164/83 97 03/19/16 20:00 76 03/19/16 19:00 97 Nasal Cannula 2.00 03/19/16 18:00 77 03/19/16 16:00 98.5 77 16 166/84 98 03/19/16 16:00 77 03/19/16 14:00 78 03/19/16 03/19/16 03/20/16 15:00 23:00 07:00 Intake Total 662 ml 928 ml 775 ml Output Total 1000 ml 1000 ml 600 ml Balance -338 ml -72 ml 175 ml Intake IV Total 662 ml 928 ml 775 ml Output Urine Total 1000 ml 1000 ml 600 ml # Bowel Movements 0 0 0 . Laboratory Tests Test 03/19/16 03/20/16 05:53 04:15 White Blood Count 23.5 TH/MM3 22.5 TH/MM3 Red Blood Count 3.56 MIL/MM3 3.56 MIL/MM3 Hemoglobin 11.0 GM/DL 11.1 GM/DL Hematocrit 32.5 % 33.2 % Mean Corpuscular Volume 91.4 FL 93.3 FL Mean Corpuscular Hemoglobin 30.9 PG 31.2 PG Mean Corpuscular Hemoglobin 33.8 % 33.4 % Concent Red Cell Distribution Width 14.2 % 14.1 % Platelet Count 351 TH/MM3 410 TH/MM3 Mean Platelet Volume 8.9 FL 8.8 FL Neutrophils (%) (Auto) 89.0 % Lymphocytes (%) (Auto) 4.9 % Monocytes (%) (Auto) 6.1 % Eosinophils (%) (Auto) 0.0 % Basophils (%) (Auto) 0.0 % Neutrophils # (Auto) 20.9 TH/MM3 Lymphocytes # (Auto) 1.2 TH/MM3 Monocytes # (Auto) 1.4 TH/MM3 Eosinophils # (Auto) 0.0 TH/MM3 Basophils # (Auto) 0.0 TH/MM3 CBC Comment AUTO DIFF Differential Total Cells 100 Counted Neutrophils % (Manual) 89 % Lymphocytes % 3 % Monocytes % 5 % Neutrophils # (Manual) 21.6 TH/MM3 Myelocytes 3 % Differential Comment FINAL DIFF MANUAL Platelet Estimate NORMAL Platelet Morphology Comment NORMAL Laboratory Tests Test 03/19/16 03/20/16 05:53 04:15 Sodium Level 135 MEQ/L 136 MEQ/L Potassium Level 3.2 MEQ/L 3.2 MEQ/L Chloride Level 97 MEQ/L 99 MEQ/L Carbon Dioxide Level 30.4 MEQ/L 30.2 MEQ/L Anion Gap 8 MEQ/L 7 MEQ/L Blood Urea Nitrogen 8 MG/DL 7 MG/DL Creatinine 0.34 MG/DL 0.39 MG/DL Estimat Glomerular Filtration 192 ML/MIN 164 ML/MIN Rate Random Glucose 101 MG/DL 147 MG/DL Calcium Level 8.1 MG/DL 7.8 MG/DL Microbiology Date/Time Procedure Status Source Growth 03/17/16 17:00 Gram Stain - Final Complete Wound Mouth 03/17/16 17:00 Wound Culture - Final Complete Wound Mouth HEAVY GROWTH NORMAL SKIN NAGA... 03/17/16 17:00 Acid Fast Stain - Final Resulted Wound Mouth NO ACID FAST BACILLI SEEN 03/17/16 17:00 Mycobacterial Culture Resulted Wound Mouth Pending 03/17/16 17:00 Fungal Smear - Final Resulted Wound Mouth NO FUNGAL ELEMENTS SEEN. 03/17/16 17:00 Fungal Culture Resulted Wound Mouth Pending 03/17/16 17:04 Gram Stain - Final Complete Wound Mouth 03/17/16 17:04 Wound Culture - Final Complete Wound Mouth HEAVY GROWTH NORMAL SKIN NAGA... 03/17/16 17:04 Acid Fast Stain - Final Resulted Wound Mouth NO ACID FAST BACILLI SEEN 03/17/16 17:04 Mycobacterial Culture Resulted Wound Mouth Pending 03/17/16 17:04 Fungal Smear - Final Resulted Wound Mouth NO FUNGAL ELEMENTS SEEN. 03/17/16 17:04 Fungal Culture Resulted Wound Mouth Pending Imaging Chest X-Ray 03/17/16 0000 Signed Impressions: Service Date/Time: Thursday, March 17, 2016 10:55 - CONCLUSION: 1. Increased density seen over the bases especially on the right thought to mainly be related to overlying soft tissue structures. A definitive consolidation is not clearly seen. 2. The lungs do appear hyperinflated. Anant Hu MD Neck CT 03/16/16 0000 Signed Impressions: Service Date/Time: Wednesday, March 16, 2016 09:37 - CONCLUSION: Dental abscess as described above extending from tonsillar fossa around the mandible to the parotid space with extension along the base of the tongue to the arch of the mandible. Air and fluid is evident. Sarkis Kurtz MD FACR Physical Exam GENERAL: More awake, following commands, moaning SKIN: Cool and dry. No generalized rash. No embolic lesions. HEENT: [place] conjunctivae, no petechia or hemorrhage. No scleral icterus. Airway patent. NECK: Now has 3 incisions with josefina drains in place, looks like 2 on L, one on R with bloody drainage, and has some min erythema CARDIOVASCULAR: Regular rate and rhythm without murmurs, gallops, or rubs. RESPIRATORY: Clear to auscultation. Breath sounds equal bilaterally. Has some upper respiratory sounds. GASTROINTESTINAL: Abdomen soft, mildly distended, not guarding, no rebound. MUSCULOSKELETAL: Extremities without clubbing, cyanosis, or edema. NEUROLOGICAL: Awake, focusing. PSYCH: Unable to assess LINE: Line with no evidence of infection : Membreno cath in place, urine looks clear Assessment & Plan Remarks IMPRESSION Strep anginosus sepsis due to L neck abscess Yoan neck abscess S/P I and D deep L neck abscess, S/P L neck exploration in [facility] Now S/P I and D yoan neck abscess and tooth extraction Encephalopathy, better Leukocytosis, slowlu improving RECOMMENDATION Continue Unasyn Continue Cefepime and Diflucan Follow C/S Follow CBC Monitor progress D/W RN I will check patient again on Wednesday Pati Cerda MD Mar 20, 2016 13:34
--- NOTE | 2016-03-20 15:08 | HHI.PR ---
Subjective Remarks POD 3 s/p extraction teeth , I&D b/l neck abscess pt seen and examined nurse at bedside less moaning, following commands answering questions speech/swallow study yesterday - liquid Objective Vital Signs Date Time Temp Pulse Resp B/P Pulse Ox O2 Delivery O2 Flow Rate FiO2 03/20/16 14:00 88 03/20/16 12:00 88 03/20/16 12:00 98.3 88 23 154/98 97 03/20/16 10:00 91 03/20/16 09:19 97 03/20/16 09:11 97 03/20/16 08:00 98.3 74 14 163/84 97 03/20/16 08:00 96 03/20/16 08:00 97 Nasal Cannula 2.00 03/20/16 06:00 96 03/20/16 04:00 98.2 74 23 172/82 97 03/20/16 04:00 84 03/20/16 02:00 72 03/20/16 00:00 74 23 172/82 97 03/20/16 00:00 74 03/19/16 22:00 94 03/19/16 20:42 96 21 03/19/16 20:00 98.3 76 13 164/83 97 03/19/16 20:00 76 03/19/16 19:00 97 Nasal Cannula 2.00 03/19/16 18:00 77 03/19/16 16:00 98.5 77 16 166/84 98 03/19/16 16:00 77 I/O 03/19/16 03/19/16 03/19/16 03/20/16 03/20/16 03/20/16 06:59 14:59 22:59 06:59 14:59 22:59 Intake Total 743 ml 662 ml 928 ml 775 ml 914 ml Output Total 1000 ml 1000 ml 1000 ml 600 ml 1750 ml Balance -257 ml -338 ml -72 ml 175 ml -836 ml Intake IV Total 743 ml 662 ml 928 ml 775 ml 914 ml Output Urine Total 1000 ml 1000 ml 1000 ml 600 ml 1750 ml # Bowel Movements 0 0 0 0 0 Result Diagram: 03/20/1641403/20/16414 Objective Remarks decrease in wbc 22.5 no pus noted draining from left neck I & D site, minimal heme noted neck soft , trach midline, no erythema Lindsey drains in place no elevation fom/tongue, no vestibule edema, full mouth opening, tissues pink and well perfused extraction/ I&D sites hemostatic pt appears more comfortable today not very cooperative with exam today Assessment and Plan Assessment and Plan POD s/p extraction teeth , I&D b/l neck abscess neck culture - alpha strep,, no fungi, final cultures pending continue abx will follow pt appears more comfortable today removed left neck drain today, 2 neck drains remaining continue dressing changes consider peg tube for feeding, pt may not be able to have liquids due to her neurological status Venkatesh Sanderson DMD Mar 20, 2016 15:08
--- NOTE | 2016-03-20 18:15 | HHI.PR ---
Subjective History of Present Illness remained confused not able to eat no fever or chills Patient resting comfortably in bed Follow simple commands Forgetful, pleasantly confused Pain control No shortness of breath Offers no other complaints Vitals/Results Intake & Output 03/19/16 03/19/16 03/20/16 15:00 23:00 07:00 Intake Total 662 ml 928 ml 775 ml Output Total 1000 ml 1000 ml 600 ml Balance -338 ml -72 ml 175 ml Intake IV Total 662 ml 928 ml 775 ml Output Urine Total 1000 ml 1000 ml 600 ml # Bowel Movements 0 0 0 Vital Signs Vital Signs Date Time Temp Pulse Resp B/P Pulse Ox O2 Delivery O2 Flow Rate FiO2 03/20/16 16:00 98.4 94 24 178/101 97 03/20/16 16:00 95 03/20/16 14:00 88 03/20/16 12:00 88 03/20/16 12:00 98.3 88 23 154/98 97 03/20/16 10:00 91 03/20/16 09:19 97 03/20/16 09:11 97 03/20/16 08:00 98.3 74 14 163/84 97 03/20/16 08:00 96 03/20/16 08:00 97 Nasal Cannula 2.00 03/20/16 06:00 96 03/20/16 04:00 98.2 74 23 172/82 97 03/20/16 04:00 84 03/20/16 02:00 72 03/20/16 00:00 74 23 172/82 97 03/20/16 00:00 74 03/19/16 22:00 94 03/19/16 20:42 96 21 03/19/16 20:00 98.3 76 13 164/83 97 03/19/16 20:00 76 03/19/16 19:00 97 Nasal Cannula 2.00 CBC/BMP: 03/20/16 0415 03/20/16 0415 Lab Results Laboratory Tests Test 03/20/16 04:15 White Blood Count 22.5 TH/MM3 Red Blood Count 3.56 MIL/MM3 Hemoglobin 11.1 GM/DL Hematocrit 33.2 % Mean Corpuscular Volume 93.3 FL Mean Corpuscular Hemoglobin 31.2 PG Mean Corpuscular Hemoglobin 33.4 % Concent Red Cell Distribution Width 14.1 % Platelet Count 410 TH/MM3 Mean Platelet Volume 8.8 FL Sodium Level 136 MEQ/L Potassium Level 3.2 MEQ/L Chloride Level 99 MEQ/L Carbon Dioxide Level 30.2 MEQ/L Anion Gap 7 MEQ/L Blood Urea Nitrogen 7 MG/DL Creatinine 0.39 MG/DL Estimat Glomerular Filtration 164 ML/MIN Rate Random Glucose 147 MG/DL Calcium Level 7.8 MG/DL Physical Exam General General Appearance: No Acute Distress, Comfortable Appearance Remarks Frail elderly female Eyes Eye Exam: Pupils Equal, Sclera White Ears & Nose Ears & Nose Exam: Nasal Mucosa [place] Throat Throat Exam: Oral Mucosa [place] & Moist Neck Neck Remarks External drain in place on the left side of neck Pulmonary Resp Exam: Breath Sounds Equal, No Distress Cardiology CV Exam: Regular, Normal Sinus Rhythm Gastrointestinal/Abdomen GI Exam: Soft, Non-Tender, Bowel Sounds Present Genitourinary Exam: Clear Urine Musculoskeletal MS Exam: Atrophy, Unable to Ambulate Integumentary Skin Exam: Warm, Dry Extremeties Extremities Exam: Pedal Pulses Palpable, Trace Edema Neurologic Neuro Exam: Alert, Awake, Moving All Extremities VTE Prophylaxis VTE Prophylaxis Device: SCDs VTE Prophylaxis Meds: Heparin Assessment/Plan Problem List: (1) Sepsis (2) Altered mental status (3) Blood glucose elevated (4) Hypokalemia (5) Spinocerebellar ataxia (6) left mandibular abscess (7) recent I/D left mandible (8) History of recent dental procedure Assessment/Plan 65 y/o woman with admitted to [facility] on 03/11/2016 b/l neck, & left mandibular abscess Streptococcus anginosus S/P emergent exploratory surgery and i&d of abscess per Dr. Carter. Recent dental procedure on 03/05/2016 on the right side. s/p intubation for airway protection. Transferred to [facility] for evaluation by OFMS. s/p extraction teeth , s/p I&D b/l neck abscess 03/[address] Sanderson 2 of the oral drains were removed 3 external drain present in neck d/w Dr Sanderson , he rec to start po feeding if pt can swallow will consult Speech therapy for swallow ashish wound care analgesic s/p sepsis -continue antibiotics, -ID Follow up -Dr. Sanderson and Dr. Carter following pt. -CT of neck noted - NGT tube start NGT feeding consult GI for PEG placement .-continue IVF - replace kcl -WBC trending down, - Hypokalemia-replace & monitor -BMP in am Elevated blood glucose -continue with accuchecks and ISS AMS, suspect metabolic Encephalopathy Appears to be improving -Neuro checks -Ammonia level ok Hx of spinocerebellar ataxia -pt. wheelchair bound, lives at [facility] -PT eval when stable. Heparin/SCDs for DVT prophylaxis Pepcid for GI prophylaxis Labs in am condition guarded d/w RN Problem Qualifiers (1) Sepsis: Qualified Code: A41.9 - Sepsis, due to unspecified organism (2) Altered mental status: Qualified Code: R41.0 - Disorientation Ana Estrada MD Mar 20, 2016 18:15 Ana Estrada MD Mar 20, 2016 18:15
[2016-03-21] VITALS (14 sets, daily range): BP systolic 95–185; BP diastolic 38–111; PULSE 72–133; RESP 16–26; TEMP 98–98.9; O2SAT 94–98
[2016-03-21] MEDS: AMPICILLIN-SULBACTAM INJ 3 GM in SODIUM CHLORIDE 0.9% INJ 100 ML IV SCH ×4 (00:42→17:28)
[2016-03-21] MEDS: MORPHINE SULFATE 4 MG/ML INJ IV PRN ×6 (02:15→23:02)
[2016-03-21] MEDS: hydrALAZINE HCL 20 MG/ML VIAL IV PUSH PRN (02:15)
[2016-03-21 05:47] LABS: HEMATOCRIT 31.8 % (35.0-46.0); MEAN CELL VOLUME 92.6 FL (80.0-100.0); MEAN CORPUSCULAR HEMOGLOBIN 31.1 PG (27.0-34.0); MEAN CORPUSCULAR HGB CONC 33.6 % (32.0-36.0); PLATELET COUNT 407 TH/MM3 (150-450); RED BLOOD COUNT 3.44 MIL/MM3 (4.00-5.30); RED CELL DISTRIBUTION WIDTH 14.5 % (11.6-17.2); REVIEW FLAG FINAL; WHITE BLOOD COUNT 16.4 TH/MM3 (4.0-11.0)
[2016-03-21] MEDS: HIGH DOSE INSULIN NOVOLOG SUPPLEMENTAL SCALE SQ SCH ×5 (06:00→22:35)
[2016-03-21] MEDS: SODIUM CHLORIDE 0.9% FLUSH 5 ML FLUSH FLUSH SCH ×2 (08:30→19:54)
[2016-03-21] MEDS: FAMOTIDINE 20 MG/2 ML VIAL IV SCH ×2 (08:30→21:05)
[2016-03-21] MEDS: HEPARIN SODIUM - SQ 10,000 UNITS/ML VIAL SQ SCH ×2 (08:30→21:05)
--- NOTE | 2016-03-21 09:50 | HHI.PR ---
Subjective Remarks POD 4 s/p extraction teeth , I&D b/l neck abscess pt seen and examined nurse at bedside still moaning, following commands answering questions somewhat, denies pain Objective Vital Signs Date Time Temp Pulse Resp B/P Pulse Ox O2 Delivery O2 Flow Rate FiO2 03/21/16 08:00 98.0 109 22 127/77 97 03/21/16 08:00 133 03/21/16 07:00 Nasal Cannula 2.00 03/21/16 06:00 88 03/21/16 04:00 98.7 94 16 95/38 95 03/21/16 04:00 94 03/21/16 02:00 82 03/21/16 00:00 98.3 72 17 185/82 95 03/21/16 00:00 72 03/20/16 22:00 96 03/20/16 21:02 96 21 03/20/16 20:00 102 03/20/16 20:00 98.7 102 25 181/83 98 03/20/16 19:00 98 Nasal Cannula 2.00 03/20/16 18:00 80 03/20/16 16:00 98.4 94 24 178/101 97 03/20/16 16:00 95 03/20/16 14:00 88 03/20/16 12:00 88 03/20/16 12:00 98.3 88 23 154/98 97 03/20/16 10:00 91 I/O 03/20/16 03/20/16 03/20/16 03/21/16 03/21/16 03/21/16 07:00 15:00 23:00 07:00 15:00 23:00 Intake Total 775 ml 914 ml 671 ml 608 ml Output Total 600 ml 1750 ml 1375 ml 950 ml Balance 175 ml -836 ml -704 ml -342 ml Intake IV Total 775 ml 914 ml 671 ml 608 ml Output Urine Total 600 ml 1750 ml 1375 ml 950 ml # Bowel Movements 0 0 0 0 Result Diagram: 03/21/163 03/20/16 6787 Objective Remarks significant decrease in wbc 16.4 no pus noted draining from left neck I & D site, minimal heme noted neck soft , trach midline, no erythema [place] drains in place no elevation fom/tongue, no vestibule edema, full mouth opening, tissues pink and well perfused extraction/ I&D sites hemostatic dried heme noted in mouth not very cooperative with exam today Assessment and Plan Assessment and Plan POD 4 s/p extraction teeth , I&D b/l neck abscess neck culture - alpha strep,, no fungi/ no AFB continue abx afebrile, wbc decreasing will follow pt appears more comfortable today removed b/l neck drains today, no drains remaining continue dressing changes consider peg tube for feeding, pt may not be able to have liquids due to her neurological status no surgical intervention at this time Venkatesh Sanderson DMD Mar 21, 2016 09:50
[2016-03-21] MEDS: CEFEPIME INJ 2,000 MG in SODIUM CHLORIDE 0.9% INJ 100 ML IV SCH ×2 (10:52→23:50)
[2016-03-21] MEDS: FLUCONAZOLE 400 MG PREMIX BAG 200 ML IV SCH (12:20)
[2016-03-21] MEDS: KETOROLAC TROMETHAMINE 30 MG/ML (IVP) VIAL IV PUSH SCH ×2 (13:41→19:52)
--- NOTE | 2016-03-21 15:06 | HHI.PR ---
Subjective History of Present Illness Lethargic, but arousable Answer simple questions Follow simple command Refusing to eat RN was unable to pass NG tube yesterday despite of multiple attempts no fever or chills Complains of pain all over/ pain medicines help some No shortness of breath Offers no other complaints Vitals/Results Intake & Output 03/20/16 03/20/16 03/21/16 15:00 23:00 07:00 Intake Total 914 ml 671 ml 608 ml Output Total 1750 ml 1375 ml 950 ml Balance -836 ml -704 ml -342 ml Intake IV Total 914 ml 671 ml 608 ml Output Urine Total 1750 ml 1375 ml 950 ml # Bowel Movements 0 0 0 Vital Signs Vital Signs Date Time Temp Pulse Resp B/P Pulse Ox O2 Delivery O2 Flow Rate FiO2 03/21/16 12:00 116 03/21/16 12:00 98.0 116 22 148/97 98 03/21/16 10:04 94 03/21/16 10:00 109 03/21/16 08:00 98.0 109 22 127/77 97 03/21/16 08:00 133 03/21/16 07:00 Nasal Cannula 2.00 03/21/16 06:00 88 03/21/16 04:00 98.7 94 16 95/38 95 03/21/16 04:00 94 03/21/16 02:00 82 03/21/16 00:00 98.3 72 17 185/82 95 03/21/16 00:00 72 03/20/16 22:00 96 03/20/16 21:02 96 21 03/20/16 20:00 102 03/20/16 20:00 98.7 102 25 181/83 98 03/20/16 19:00 98 Nasal Cannula 2.00 03/20/16 18:00 80 03/20/16 16:00 98.4 94 24 178/101 97 03/20/16 16:00 95 CBC/BMP: 03/21/16 0443 03/20/16 2318 Lab Results Laboratory Tests Test 03/20/16 03/21/16 23:18 04:43 Potassium Level 3.8 MEQ/L White Blood Count 16.4 TH/MM3 Red Blood Count 3.44 MIL/MM3 Hemoglobin 10.7 GM/DL Hematocrit 31.8 % Mean Corpuscular Volume 92.6 FL Mean Corpuscular Hemoglobin 31.1 PG Mean Corpuscular Hemoglobin 33.6 % Concent Red Cell Distribution Width 14.5 % Platelet Count 407 TH/MM3 Mean Platelet Volume 8.6 FL Physical Exam General General Appearance: No Acute Distress, Comfortable Appearance Remarks Frail elderly female Eyes Eye Exam: Pupils Equal, Sclera White Ears & Nose Ears & Nose Exam: Nasal Mucosa [place] Throat Throat Exam: Oral Mucosa [place] & Moist Neck Neck Remarks Dressing on the neck is intact Pulmonary Resp Exam: Breath Sounds Equal, No Distress Cardiology CV Exam: Regular, Normal Sinus Rhythm Gastrointestinal/Abdomen GI Exam: Soft, Non-Tender, Bowel Sounds Present Genitourinary Exam: Clear Urine Musculoskeletal MS Exam: Atrophy, Unable to Ambulate Integumentary Skin Exam: Warm, Dry Extremeties Extremities Exam: Pedal Pulses Palpable, Trace Edema Neurologic Neuro Exam: Alert, Awake, Moving All Extremities VTE Prophylaxis VTE Prophylaxis Device: SCDs VTE Prophylaxis Meds: Heparin Assessment/Plan Problem List: (1) Sepsis (2) Altered mental status (3) Blood glucose elevated (4) Hypokalemia (5) Spinocerebellar ataxia (6) left mandibular abscess (7) recent I/D left mandible (8) History of recent dental procedure Assessment/Plan 65 y/o woman with admitted to [facility] on 03/11/2016 b/l neck, & left mandibular abscess Streptococcus anginosus S/P emergent exploratory surgery and i&d of abscess per Dr. Carter. Recent dental procedure on 03/05/2016 on the right side. s/p intubation for airway protection. Transferred to [facility] for evaluation by OFMS. s/p extraction teeth 02/28, s/p I&D b/l neck abscess 03/[address] Sanderson 2 of the oral drains were removed external drain removed 03/21/16 Speech therapy for swallow eval noted Patient unable to eat due to her poor cognitive functions NGT could not be passed DC NGT tube -Start TPN and lipids for parenteral feeding - GI for PEG placement awaited wound care analgesic/ add Toradol for pain control without altering her mentation s/p sepsis -continue antibiotics, -ID Follow up --CT of neck noted -WBC improving Hypokalemia-replace & monitor -BMP in am Elevated blood glucose -continue with accu checks and ISS AMS, suspect metabolic Encephalopathy Appears to be improving -Neuro checks -Ammonia level ok Hx of spinocerebellar ataxia -pt. wheelchair bound, lives at [facility] -PT eval when stable. Heparin/SCDs for DVT prophylaxis Pepcid for GI prophylaxis Labs in am condition guarded d/w RN again today Ok to transfer to step down Problem Qualifiers (1) Sepsis: Qualified Code: A41.9 - Sepsis, due to unspecified organism (2) Altered mental status: Qualified Code: R41.0 - Disorientation Ana Estrada MD Mar 21, 2016 15:06 Ana Estrada MD Mar 21, 2016 15:06
--- NOTE | 2016-03-21 16:46 | PD.CONS ---
HPI History of Present Illness This is a 65 year old female patient who was admitted [facility] on 03/11/16 for left neck swelling after a recent dental procedure. She was found to have a left submandibular abscess and required intubation for airway protection and underwent incision and drainage of the abscess. Her Blood cultures came back with Streptococcus anginososus and she was treated with antibiotics per ID recommendations. There was some concern that she may have some residual tooth and may need further surgery and therefore she was transferred to [facility] for OMFS services on 03/16/16. She underwent extraction of teeth and I&D of bilateral neck abscess on 03/[address] Sanderson. She is currently in the ICU. She is being followed by ST, but it has been recommended that she remain NPO. According to the staff, the daughter reports that she has been losing a significant amount of weight and not eating well for several months. GI was consulted for PEG tube placement. The patient is to be started on TPN later today. (Jacqui Mayer) [facility] Past Medical History Spinocerbellar ataxia Osteoarthritis Questionable hx of DM Right proximal humerus fracutre. Past Surgical History S/P I/D left mandibular abscess Dental procedure 03/05/2016, unclear what type of procedure pt. had (Jacqui Mayer) Coded Allergies: Codeine (Verified Allergy, Unknown, 02/03/16) Vicodin (Verified Allergy, Unknown, 02/03/16) Medications Allergies Coded Allergies Type Severity Reaction Last Updated Verified Codeine Allergy Unknown 02/03/16 Yes Vicodin Allergy Unknown 02/03/16 Yes Active Scripts Medications Dose Route/Sig Days Date Category Diflunisal 500 Mg Tab 500 Mg PO DAILY 02/03/16 Reported Family History Positive for AK, CAD in father Social History Lives at [facility], wheelchair bound. No documented hx of ETOH, smoking, substance abuse (Jacqui Mayer) Review of Systems ROS Poor historian, just c/o generalized pain. (Jacqui Mayer) GI Exam Vitals I&O Vital Signs Date Time Temp Pulse Resp B/P Pulse Ox O2 Delivery O2 Flow Rate FiO2 03/21/16 16:00 100 03/21/16 16:00 98.2 100 24 154/90 97 03/21/16 14:00 106 03/21/16 12:00 116 03/21/16 12:00 98.0 116 22 148/97 98 03/21/16 10:04 94 03/21/16 10:00 109 03/21/16 08:00 98.0 109 22 127/77 97 03/21/16 08:00 133 03/21/16 07:00 Nasal Cannula 2.00 03/21/16 06:00 88 03/21/16 04:00 98.7 94 16 95/38 95 03/21/16 04:00 94 03/21/16 02:00 82 03/21/16 00:00 98.3 72 17 185/82 95 03/21/16 00:00 72 03/20/16 22:00 96 03/20/16 21:02 96 21 03/20/16 20:00 102 03/20/16 20:00 98.7 102 25 181/83 98 03/20/16 19:00 98 Nasal Cannula 2.00 03/20/16 18:00 80 I/O 03/20/16 03/20/16 03/20/16 03/21/16 03/21/16 03/21/16 07:00 15:00 23:00 07:00 15:00 23:00 Intake Total 775 ml 914 ml 671 ml 608 ml 857 ml Output Total 600 ml 1750 ml 1375 ml 950 ml 0 ml Balance 175 ml -836 ml -704 ml -342 ml 857 ml Intake IV Total 775 ml 914 ml 671 ml 608 ml 857 ml Output Urine Total 600 ml 1750 ml 1375 ml 950 ml 0 ml # Bowel Movements 0 0 0 0 Imaging Last Impressions Chest X-Ray 03/17/16 0000 Signed Impressions: Service Date/Time: Thursday, March 17, 2016 10:55 - CONCLUSION: 1. Increased density seen over the bases especially on the right thought to mainly be related to overlying soft tissue structures. A definitive consolidation is not clearly seen. 2. The lungs do appear hyperinflated. Anant Hu MD Neck CT 03/16/16 0000 Signed Impressions: Service Date/Time: Wednesday, March 16, 2016 09:37 - CONCLUSION: Dental abscess as described above extending from tonsillar fossa around the mandible to the parotid space with extension along the base of the tongue to the arch of the mandible. Air and fluid is evident. Sarkis Kurtz MD FACR Laboratory Test 03/20/16 03/21/16 23:18 04:43 Potassium Level 3.8 MEQ/L White Blood Count 16.4 TH/MM3 Red Blood Count 3.44 MIL/MM3 Hemoglobin 10.7 GM/DL Hematocrit 31.8 % Mean Corpuscular Volume 92.6 FL Mean Corpuscular Hemoglobin 31.1 PG Mean Corpuscular Hemoglobin 33.6 % Concent Red Cell Distribution Width 14.5 % Platelet Count 407 TH/MM3 Mean Platelet Volume 8.6 FL Date/Time Procedure Status Source Growth 03/17/16 17:04 Gram Stain - Final Complete Wound Mouth 03/17/16 17:04 Wound Culture - Final Complete Wound Mouth HEAVY GROWTH NORMAL SKIN MALORIE... 03/17/16 17:04 Fungal Smear - Final Resulted Wound Mouth NO FUNGAL ELEMENTS SEEN. 03/17/16 17:04 Fungal Culture Resulted Wound Mouth Pending 03/17/16 17:04 Acid Fast Stain - Final Resulted Wound Mouth NO ACID FAST BACILLI SEEN 03/17/16 17:04 Mycobacterial Culture Resulted Wound Mouth Pending 03/17/16 12:15 Aerobic Blood Culture - Preliminary Resulted Blood Peripheral NO GROWTH IN 4 DAYS 03/17/16 12:15 Anaerobic Blood Culture - Preliminary Resulted Blood Peripheral NO GROWTH IN 4 DAYS Physical Examination HEENT: Normocephalic; atraumatic; no jaundice. Drsg left neck d/i. CHEST: CTA, Periods of sleep apnea CARDIAC: RRR ABDOMEN: Soft, nondistended, nontender; no hepatosplenomegaly; bowel sounds are present in all four quadrants. EXTREMITIES: No clubbing, cyanosis, or edema. SKIN: Normal; no rash; no jaundice. DIVISION COMMANDER: Lethargic, confused (Jacqui Mayer) Assessment and Plan Plan ASSESSMENT: - Dysphagia, Malnutrition. Hospitalized for left submandibular abscess, requiring multiple I&D and extraction of teeth. On Abx per ID. ST following, recommends NPO. Daughter had reported that she had significant weight loss over the past several months. TPN to be started. GI consulted for PEG tube placement. PLAN: - Plan for egd with peg tube placement on Wednesday - Obtain consents - NPO after MN Wednesday night - Hold Heparin after MN Wednesday night - On Abx - TPN - Supportive care - Further recommendations to follow based on results of above - Pt seen and examined by Dr. Roche an dmyself and this note is written on his behalf (Jacqui Mayer) Physician Comments Seen and examined with ms,. Leyla NICHOLSON, Egd/peg for next week. To be started on TPN today. Will follow, thank you (Tristan Roche MD) Jacqui Mayer Mar 21, 2016 16:46 Tristan Roche MD Mar 21, 2016 18:56
[2016-03-21] MEDS: CLINIMIX E 4.25/25 2000 mL- >42 mls/hr IV-CENTRAL SCH ×3 (19:54)
[2016-03-21] MEDS: DEXT 5%-NACL 0.45% 1000 ML INJ 1,000 ML IV SCH (23:10)
[2016-03-22] VITALS (7 sets, daily range): BP systolic 138–156; BP diastolic 64–92; PULSE 94–106; RESP 16–24; TEMP 97.9–98.9; O2SAT 95–98
[2016-03-22] MEDS: AMPICILLIN-SULBACTAM INJ 3 GM in SODIUM CHLORIDE 0.9% INJ 100 ML IV SCH ×5 (01:15→23:27)
[2016-03-22] MEDS: KETOROLAC TROMETHAMINE 30 MG/ML (IVP) VIAL IV PUSH SCH ×4 (01:16→20:13)
[2016-03-22] MEDS ORDERED: ENALAPRILAT 1.25 MG/ML VIAL IV PUSH PRN (03:00)
[2016-03-22] MEDS: MORPHINE SULFATE 4 MG/ML INJ IV PRN ×6 (03:05→23:27)
[2016-03-22 05:27] LABS: HEMATOCRIT 30.7 % (35.0-46.0); MEAN CELL VOLUME 92.5 FL (80.0-100.0); MEAN CORPUSCULAR HEMOGLOBIN 30.9 PG (27.0-34.0); MEAN CORPUSCULAR HGB CONC 33.4 % (32.0-36.0); PLATELET COUNT 442 TH/MM3 (150-450); RED BLOOD COUNT 3.32 MIL/MM3 (4.00-5.30); RED CELL DISTRIBUTION WIDTH 14.5 % (11.6-17.2); REVIEW FLAG FINAL; WHITE BLOOD COUNT 14.6 TH/MM3 (4.0-11.0)
[2016-03-22 05:42] LABS: BICARBONATE 29.4 MEQ/L (21.0-32.0); POTASSIUM 3.5 MEQ/L (3.5-5.1)
[2016-03-22] MEDS: HIGH DOSE INSULIN NOVOLOG SUPPLEMENTAL SCALE SQ SCH ×4 (05:50→23:48)
[2016-03-22] MEDS: HEPARIN SODIUM - SQ 10,000 UNITS/ML VIAL SQ SCH ×2 (08:48→20:13)
[2016-03-22] MEDS: FAMOTIDINE 20 MG/2 ML VIAL IV SCH ×2 (08:49→20:12)
[2016-03-22] MEDS: SODIUM CHLORIDE 0.9% FLUSH 5 ML FLUSH FLUSH SCH ×2 (08:49→20:13)
[2016-03-22] MEDS: CEFEPIME INJ 2,000 MG in SODIUM CHLORIDE 0.9% INJ 100 ML IV SCH ×2 (12:14→23:26)
[2016-03-22] MEDS: FLUCONAZOLE 400 MG PREMIX BAG 200 ML IV SCH (12:27)
[2016-03-22] MEDS: DEXT 5%-NACL 0.45% 1000 ML INJ 1,000 ML IV SCH ×2 (12:28→23:31)
--- NOTE | 2016-03-22 14:06 | HHI.PR ---
Subjective History of Present Illness Lethargic, but arousable Answer simple questions Follow simple command Refusing to eat, took 1 sip of tea. RN was unable to pass NG tube yesterday despite of multiple attempts no fever or chills Complains of pain all over/ pain medicines help some, hollers out with any tactile stimulation No shortness of breath Offers no other complaints Hospital Day: 7 Subjective Remarks Moaning (Valarie Harrington) Review of Systems Constitutional Constitutional: Weakness Constitutional Remarks Limited assessment. Patient hollered out in pain with minimal tactile stimulation. Requesting meds. (Valarie Harrington) Neck Neck: Pain Upon Movement Neck Remarks Large dry gauze dressing covering the entire left side of neck to jaw line. ( Valarie Harrington) Musculoskeletal MS: Discomfort/Pain MS Remarks Holding neck stiffly to rt. side away from dressing (Valarie Harrington) Vitals/Results Intake & Output 03/21/16 03/21/16 03/22/16 15:00 23:00 07:00 Intake Total 857 ml 759 ml 0 ml Output Total 0 ml 750 ml 650 ml Balance 857 ml 9 ml -650 ml Intake Oral 0 ml IV Total 857 ml 593 ml TPN/PPN 166 ml Output Urine Total 0 ml 750 ml 650 ml # Bowel Movements 0 0 Vital Signs Vital Signs Date Time Temp Pulse Resp B/P Pulse Ox O2 Delivery O2 Flow Rate FiO2 03/22/16 12:00 98.1 96 17 138/75 98 03/22/16 10:15 97 21 03/22/16 08:00 98.7 101 16 149/70 97 03/22/16 04:00 98.4 94 24 156/90 96 03/22/16 03:10 16 03/22/16 02:16 16 03/22/16 00:00 98.9 106 22 150/92 95 03/21/16 22:05 96 21 03/21/16 22:00 102 03/21/16 20:00 98.9 108 26 164/111 96 03/21/16 20:00 108 03/21/16 18:00 100 03/21/16 16:00 100 03/21/16 16:00 98.2 100 24 154/90 97 03/21/16 14:00 106 (LenValarie EdisonCarlos INCHOLSON) CBC/BMP: 03/22/16 0500 03/22/16 0500 Lab Results Laboratory Tests Test 03/22/16 05:00 White Blood Count 14.6 TH/MM3 Red Blood Count 3.32 MIL/MM3 Hemoglobin 10.3 GM/DL Hematocrit 30.7 % Mean Corpuscular Volume 92.5 FL Mean Corpuscular Hemoglobin 30.9 PG Mean Corpuscular Hemoglobin 33.4 % Concent Red Cell Distribution Width 14.5 % Platelet Count 442 TH/MM3 Mean Platelet Volume 8.0 FL Sodium Level 139 MEQ/L Potassium Level 3.5 MEQ/L Chloride Level 102 MEQ/L Carbon Dioxide Level 29.4 MEQ/L Anion Gap 8 MEQ/L Blood Urea Nitrogen 12 MG/DL Creatinine 0.42 MG/DL Estimat Glomerular Filtration 150 ML/MIN Rate Random Glucose 173 MG/DL Calcium Level 8.2 MG/DL Imaging Remarks Last Impressions Chest X-Ray 03/17/16 0000 Signed Impressions: Service Date/Time: Thursday, March 17, 2016 10:55 - CONCLUSION: 1. Increased density seen over the bases especially on the right thought to mainly be related to overlying soft tissue structures. A definitive consolidation is not clearly seen. 2. The lungs do appear hyperinflated. Anant Hu MD Neck CT 03/16/16 0000 Signed Impressions: Service Date/Time: Wednesday, March 16, 2016 09:37 - CONCLUSION: Dental abscess as described above extending from tonsillar fossa around the mandible to the parotid space with extension along the base of the tongue to the arch of the mandible. Air and fluid is evident. Sarkis Kurtz MD FACR Current Medications Active Medications Enalaprilat (Vasotec Inj) 1.25 mg Q6H PRN IV PUSH; Start 03/22/16 at 03:00 Famotidine (Pepcid Inj) 20 mg Q12HR IV Last administered on 03/22/16t 08:49; Admin Dose 20 MG; Start 03/21/16 at 21:00 Multivitamins/ Folic Acid/Amino Acids/ Electrolytes/ Dextrose (Mvi-12 Inj/ Folvite Inj/ Clinimix E 4.25/ 25) 2,010.2 ml @ 83 mls/hr Q24H IV-CENTRAL Last administered on 03/21/16t 19:54; Admin Dose 83 MLS/HR; Start 03/21/16 at 20:00 ( Jordan,Susan M. ANIMAL COP) Physical Exam General General Appearance: No Acute Distress, Comfortable (JordanValarie M. ANIMAL COP) Eyes Eye Exam: Pupils Equal, Sclera White (LenValarie M. ANIMAL COP) Ears & Nose Ears & Nose Exam: Nasal Mucosa [place] (LenValarie M. ANIMAL COP) Throat Throat Exam: Oral Mucosa [place] & Moist Throat Remarks dry mucous membranes. throughout oral cavity (LenValarie M. ANIMAL COP) Neck Neck Exam: Nuchal Rigidity (LenValarie M. ANIMAL COP) Pulmonary Resp Exam: Breath Sounds Equal, No Distress, Poor Inspiratory Effort (Jordan Valarie M. ANIMAL COP) Cardiology CV Exam: Regular, Normal Sinus Rhythm (JordanValarie M. ANIMAL COP) Gastrointestinal/Abdomen GI Exam: Soft, Non-Tender, Bowel Sounds Present, Bowel Sounds Hypoactive GI Remarks flat (LenValarie M. ANIMAL COP) Genitourinary Exam: Clear Urine (LenValarie M. ANIMAL COP) Musculoskeletal MS Exam: Atrophy, Unable to Ambulate (JordanValarie M. ANIMAL COP) Integumentary Skin Exam: Warm, Dry Skin Remarks thin turgor (LenValarie M. ANIMAL COP) Extremeties Extremities Exam: Pedal Pulses Palpable, Trace Edema (LenValarie M. ANIMAL COP) Neurologic Neuro Exam: Alert, Awake, Moving All Extremities (LenValarie M. ANIMAL COP) VTE Prophylaxis VTE Prophylaxis Device: SCDs VTE Prophylaxis Meds: Heparin (LenBelleValarie M. ANIMAL COP) Assessment/Plan Problem List: (1) Sepsis (2) Altered mental status (3) Blood glucose elevated (4) Hypokalemia (5) Spinocerebellar ataxia (6) left mandibular abscess (7) recent I/D left mandible (8) History of recent dental procedure Assessment/Plan 65 y/o woman with admitted to [facility] on 03/11/2016 b/l neck, & left mandibular abscess Streptococcus anginosus S/P emergent exploratory surgery and i&d of abscess per Dr. Carter. Recent dental procedure on 03/05/2016 on the right side. s/p intubation for airway protection. Transferred to [facility] for evaluation by [facility]. s/p extraction teeth 02/28, s/p I&D b/l neck abscess 03/[address] Sanderson 2 of the oral drains were removed external drain removed 03/21/16 Speech therapy for swallow eval noted Patient unable to eat due to her poor cognitive functions NGT could not be passed DC NGT tube -Start TPN and lipids for parenteral feeding - GI for PEG placement scheduled for Wednesday wound care analgesic/ add Toradol for pain control without altering her mentation s/p sepsis -continue antibiotics, -ID Follow up --CT of neck noted -WBC improving Hypokalemia-replace & monitor -BMP in am Elevated blood glucose -continue with accu checks and ISS AMS, suspect metabolic Encephalopathy Appears to be improving -Neuro checks -Ammonia level ok Hx of spinocerebellar ataxia -pt. wheelchair bound, lives at [facility] -PT eval when stable. Pain management Heparin/SCDs for DVT prophylaxis Pepcid for GI prophylaxis Labs in am condition guarded d/w RN again today . on stepdown, Elizabeth On step down Discussed Condition with: Patient, Daughter (Valarie Harrington) Assessment/Plan pt is seen & Examined d/w Valarie d/w RN appreciate GI Input , for PEG on wednesday cont TPN cont analgesic cont abx will also consult palliative care will f/u (Ana Estrada MD) Problem Qualifiers (1) Sepsis: Qualified Code: A41.9 - Sepsis, due to unspecified organism (2) Altered mental status: Qualified Code: R41.0 - Disorientation Valarie Harrington Mar 22, 2016 14:06 Ana Estrada MD Mar 22, 2016 14:40
[2016-03-22] MEDS: CLINIMIX E 4.25/25 2000 mL- >42 mls/hr IV-CENTRAL SCH ×3 (20:23)
[2016-03-23] VITALS: BP 132/60; PULSE 90; RESP 20; TEMP 97.8; O2SAT 99
[2016-03-23] MEDS: KETOROLAC TROMETHAMINE 30 MG/ML (IVP) VIAL IV PUSH SCH ×4 (02:43→21:20)
[2016-03-23 04:00] VITALS: BP 108/68; PULSE 88; RESP 20; TEMP 97.6; O2SAT 100
[2016-03-23 05:52] LABS: AUTOMATED NEUTROPHIL # 7.5 TH/MM3 (1.8-7.7); BASOPHIL % 0.3 % (0.0-2.0); EOSINOPHIL % 0.4 % (0.0-4.0); HEMATOCRIT 28.1 % (35.0-46.0); LYMPH % 6.8 % (9.0-44.0); LYMPHOCYTE # 0.7 TH/MM3 (1.0-4.8); MEAN CELL VOLUME 93.5 FL (80.0-100.0); MEAN CORPUSCULAR HGB CONC 34.2 % (32.0-36.0); MONO % 14.3 % (0.0-8.0); NEUT % 78.2 % (16.0-70.0); PLATELET COUNT 382 TH/MM3 (150-450); WHITE BLOOD COUNT 9.6 TH/MM3 (4.0-11.0)
[2016-03-23 06:17] LABS: HEMO FLAGS AUTO DIFF
[2016-03-23] MEDS: HIGH DOSE INSULIN NOVOLOG SUPPLEMENTAL SCALE SQ SCH ×4 (06:23→21:21)
[2016-03-23] MEDS: AMPICILLIN-SULBACTAM INJ 3 GM in SODIUM CHLORIDE 0.9% INJ 100 ML IV SCH ×4 (06:23→23:37)
[2016-03-23] MEDS: MORPHINE SULFATE 4 MG/ML INJ IV PRN (06:29)
[2016-03-23 08:00] VITALS: BP 125/65; PULSE 88; RESP 16; TEMP 97; O2SAT 99
[2016-03-23 08:01] LABS: BANDS 3 % (0-6); MYELOCYTES 1 % (0-0); NEUTROPHIL # MANUAL DIFF 8.3 TH/MM3 (1.8-7.7); POLYS (SEG NEUTROPHILS) 82 % (16-70); WBC DIFF SAMPLE 100
[2016-03-23 08:02] LABS: PLATELET ESTIMATE SMEAR NORMAL (NORMAL); PLATELET MORPHOLOGY NORMAL (NORMAL); SCAN/DIFF FINAL DIFF MANUAL
[2016-03-23] MEDS: FAMOTIDINE 20 MG/2 ML VIAL IV SCH ×2 (08:46→21:20)
[2016-03-23] MEDS: HEPARIN SODIUM - SQ 10,000 UNITS/ML VIAL SQ SCH ×2 (08:46→21:00)
[2016-03-23] MEDS: SODIUM CHLORIDE 0.9% FLUSH 5 ML FLUSH FLUSH SCH ×2 (08:47→21:20)
--- NOTE | 2016-03-23 10:49 | PD.CONS ---
Consult Service Palliative Care . Consult Requested By Dr. Estrada . Primary Care Physician Jorje Park M.D. . Reason for Consultation a. To assist with evaluation and management of symptoms including: pain, malnutrition, altered metal status, constipation b. To assist medical decision maker(s) with: better understanding of current medical conditions; weighing benefits/burdens of medical treatment options; making medical treatment decisions. . HPI History of Present Illness Ms. Reilly is a 65 year old female patient who was transferred to [facility] from [facility] on 03/15/16. She was admitted to [facility] on 03/11/16 after developing some swelling in the left side status post a dental procedure 6 days earlier. Her past medical history includes spinocerebellar ataxia, DM and osteoarthritis. At [facility] the patient was found septic and imaging showed a left submandibular abscess. Dx: Bryan's angina. She was taken to the OR for intubation and possible tracheostomy because of the risk for compromised airway. She underwent an incision and drainage with Dr. Carter, josefina drain in place. Blood cultures were positive for Streptococcus Anginosus. Over the next few days the patient's swelling and drainage decreased but her WBC continued to trend upward. Dr. Carter was concerned there was residual tooth fragment and the patient may require additional surgery. Since there are no OMFS services at [facility], the patient was transferred to [facility]. The patient presented critically ill with potentially compromised airway and risk of sudden respiratory distress. The left side of her neck remained swollen and her airway was compromised without stridor. Patient was admitted to intensive care, steroids and antibiotics were continued. OMFS and ID were consulted. * CBC on admission: WBC 28.5, hemoglobin 10.2, hematocrit 29.8, platelets 2:30, neutrophils 93.2 * CMP on admission: == Sodium 143, potassium 2.9, chloride 106, carbon dioxide 29.4, random glucose 174, calcium 8.0, magnesium 1.8 == BUN 14, creatinine 0.45, GFR 139 == Total bilirubin 0.4, AST 23, ALT 64, alkaline phosphatase 64 == Total protein 5.5, albumin 2.7 * CT soft tissue neck on 03/16/16 showed a dental abscess extending from the tonsillar fossa around the mandible to the parotid space with extension along the base of tongue to the articular mandible. Air and fluid was evident. * Chest x-ray on 03/17/16 showed increased density seen over the bases especially on the right thought to mainly be related to overlying soft tissue structures, definite consolidation is not clearly seen. Lungs to appeared hyperinflated. * EKG: Sinus tachycardia with frequent PVCs, right atrial enlargement, left atrial enlargement. * Blood cultures negative Dr. Sanderson, oral maxillofacial surgery, evaluated the patient. The patient was taken back to the OR on 03/17/16 for I&D of bilateral neck abscesses and tooth extractions. [place] drains x3 were placed but have since been removed. Wound cultures of the mouth and neck pending. Patient on Zosyn, Cefepime and Diflucan. The patient has had intermittent coughing with solids and liquids per notes. Patient now refusing to eat. The patient's daughter reports the patient has been missing a significant amount of weight and not eating well for several months. GI was consulted and the patient was started on TPN. EGD with PEG tube placement tentatively scheduled for 03/24/16. Palliative Care was consulted to assist with symptom management and to discuss with the patient/family the benefits and burdens of her current illnesses and the options regarding future care. . 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 She has been wheelchair bound for 20+ years. Per medical notes, the patient has had a progressive decline in strength and coordination. The patient has had intermittent coughing with solids and liquids. Previous swallow evaluation made recommendation for esophageal dilatation, it is unclear if this procedure took place. Patient now refusing to eat. The patient's daughter reports the patient has been missing a significant amount of weight and not eating well for several months. GI was consulted and the patient was started on TPN. EGD with PEG tube placement tentatively scheduled for 03/24/16 . Review of Systems ROS Limitations: Altered Mental Status, Speech Impaired (Abscess) Constitutional: COMPLAINS OF: Fatigue, Weight loss, Change in appetite ( Refusing oral nutriton), Generalized weakness (Bedbound) Ears, nose, mouth, throat: COMPLAINS OF: Toothache (Status post dental abscess) Respiratory: DENIES: Shortness of breath Cardiovascular: DENIES: Dyspnea on Exertion, Lower Extremity Edema Gastrointestinal: COMPLAINS OF: Constipation (LBM: 03/18/16), Difficulty Swallowing, Anorexia Musculoskeletal: COMPLAINS OF: Joint pain Integumentary: COMPLAINS OF: Excessive dryness Hematologic/Lymphatics: COMPLAINS OF: Bruising Neurologic: COMPLAINS OF: Poor Balance Psychiatric: COMPLAINS OF: Confusion Past Family Social History Coded Allergies: Codeine (Verified Allergy, Unknown, 02/03/16) Vicodin (Verified Allergy, Unknown, 02/03/16) Past Medical History Spinocerbellar ataxia Osteoarthritis Questionable hx of DM Right proximal humerus fracutre. . Past Surgical History S/P I/D left mandibular abscess Dental procedure 03/05/2016, unclear what type of procedure . Reported Medications Diflunisal 500 Mg Tab 500 Mg PO DAILY . Current Medications Medications (Trade) Dose Ordered Sig/Lillian Route Start Time Stop Time Status Last Admin (D5W-03/02 NS 1000 ml Inj) 1,000 ml @ 75 mls/hr [id number] IV 03/15/16 20:30 03/22/16 23:31 (Heparin Inj) 5,000 units Q12HR SQ 03/15/16 21:00 03/23/16 08:46 (Morphine Inj) 2 mg Q30M PRN IV 03/15/16 20:30 03/23/16 06:29 (D50w (Vial) Inj) 25 ml UNSCH PRN IV PUSH 03/15/16 21:30 (Glucagon Inj) 1 mg UNSCH PRN OTHER 03/15/16 21:30 (NovoLOG SUPPLEMENTAL SCALE) 1 Q6HR SQ 03/16/16 00:00 03/23/16 06:23 (NS Flush) 2 ml UNSCH PRN FLUSH 03/16/16 11:30 (NS Flush) 2 ml BID FLUSH 03/16/16 21:00 03/23/16 08:47 (Tylenol) 650 mg Q4H PRN PO 03/16/16 12:00 (Zofran Inj) 4 mg Q6H PRN IVP 03/16/16 12:00 Naloxone HCl 0.4 mg 0.4 mg UNSCH PRN IV 03/16/16 11:30 (Unasyn Inj/NS Inj) 100 ml @ 200 mls/hr Q6H IV 03/16/16 13:00 03/23/16 06:23 Hydralazine HCl 20 mg 20 mg Q4H PRN IV PUSH 03/16/16 17:30 03/21/16 02:15 Cefepime HCl 2000 mg/Sodium Chloride 100 ml @ 200 mls/hr Q12H IV 03/17/16 11:00 03/22/16 23:26 Fluconazole/ Sodium Chloride 200 ml @ 100 mls/hr Q24H IV 03/17/16 12:00 03/22/16 12:27 (Mvi-12 Inj/ Folvite Inj/ Clinimix E 4.25/ 25) 2,010.2 ml @ 83 mls/hr Q24H IV-CENTRAL 03/21/16 20:00 03/22/16 20:23 (Toradol Inj) 15 mg Q6H IV PUSH 03/21/16 14:00 03/24/16 08:01 03/23/16 08:47 (Pepcid Inj) 20 mg Q12HR IV 03/21/16 21:00 03/23/16 08:46 (Vasotec Inj) 1.25 mg Q6H PRN IV PUSH 03/22/16 03:00 . Family History Father has a history of CAD and SD . Substance Use Tobacco: No documented history of tabacco use. Alcohol: None known Prescription med abuse: None known Illicits: None known . Psychosocial History Patient is a . Patient lives at an [facility]. Her daughter, Lynnette, lives locally. . Spiritual/Cultural Factors No sikh affiliation . Today's verbally stated goals: Patient is confused and lethargic upon examination, does not appear to have insight or judgment related to her medical conditions. No medical treatment goals were verbalized. . Family/friends goals: Pending conversations/discussion with patient's daughter, Lynnette Ford. Ethical and Legal Issues Per [place] statutes, in the absence of written advanced directives healthcare proxy decision making would fall to the patient's Michael Ford. . Physical Exam Vital Signs Date Time Temp Pulse Resp B/P Pulse Ox O2 Delivery O2 Flow Rate FiO2 03/23/16 08:00 97.0 88 16 125/65 99 03/23/16 08:00 97.0 88 16 125/65 99 03/23/16 04:00 97.6 88 20 108/68 100 03/23/16 00:00 97.8 90 20 132/60 99 03/22/16 23:32 16 03/22/16 21:13 16 03/22/16 20:00 98.9 94 20 138/64 98 03/22/16 16:00 97.9 95 18 143/75 96 03/22/16 12:00 98.1 96 17 138/75 98 03/22/16 10:15 97 21 . 03/22/16 03/23/16 19:00 07:00 Intake Total 1168 ml 0 ml Output Total 850 ml 1100 ml Balance 318 ml -1100 ml Intake Oral 0 ml 0 ml IV Total 661 ml TPN/PPN 507 ml Output Urine Total 850 ml 1100 ml Stool Total 0 ml # Bowel Movements 0 0 . Exam CONSTITUTIONAL/GENERAL: This is a cachectic 66-year-old female who appears older than her documented age., in no apparent distress. TUBES/LINES/DRAINS: PICC line, Membreno SKIN: No jaundice, rashes, or lesions. Ecchymoses on upper extremities. No wounds seen anteriorly. Skin temperature appropriate. Not diaphoretic. HEAD: Atraumatic. Normocephalic. EYES: Pupils equal and round and reactive. Extraocular motions intact. No scleral icterus. No injection or drainage. Fundi not examined. ENT: Hearing grossly normal. Nose without bleeding or purulent drainage. NECK: Trachea midline. Dressing on left side of the neck clean, dry and intact. CARDIOVASCULAR: Regular rate and rhythm without murmurs, gallops, or rubs. No JVD. Peripheral pulses symmetric. RESPIRATORY/CHEST: Symmetric, unlabored respirations. Clear to auscultation. Breath sounds diminished bilaterally. No wheezes, rales, or rhonchi. GASTROINTESTINAL: Abdomen soft, non-tender, nondistended. No hepato-splenomegaly , or palpable masses. No guarding. Bowel sounds present. LBM: 03/18/16 GENITOURINARY: Without palpable bladder distension. Membreno catheter in place. MUSCULOSKELETAL: Extremities without clubbing, cyanosis, or edema. No mottling or clubbing. LYMPHATICS: No palpable cervical or supraclavicular adenopathy. NEUROLOGICAL: Oriented to person only. Lethargic. Weak. Attempts to follow commands, moving all extremities 4 PSYCHIATRIC: No obvious anxiety/depression. No apparent hallucinations or other psychotic thought process. . Diagnostic Tests Laboratory Laboratory Tests Test 103/21/16 03/22/16 03/23/16 23:18 04:43 05:00 05:32 Potassium Level 3.8 MEQ/L 3.5 MEQ/L (3.5-5.1) (3.5-5.1) White Blood Count 16.4 TH/MM3 14.6 TH/MM3 9.6 TH/MM3 (4.0-11.0) (4.0-11.0) (4.0-11.0) Red Blood Count 3.44 MIL/MM3 3.32 MIL/MM3 3.00 MIL/MM3 (4.00-5.30) (4.00-5.30) (4.00-5.30) Hemoglobin 10.7 GM/DL 10.3 GM/DL 9.6 GM/DL (11.6-15.3) (11.6-15.3) (11.6-15.3) Hematocrit 31.8 % 30.7 % 28.1 % (35.0-46.0) (35.0-46.0) (35.0-46.0) Mean Corpuscular Volume 92.6 FL 92.5 FL 93.5 FL (80.0-100.0) (80.0-100.0) (80.0-100.0) Mean Corpuscular Hemoglobin 31.1 PG 30.9 PG 32.0 PG (27.0-34.0) (27.0-34.0) (27.0-34.0) Mean Corpuscular Hemoglobin 33.6 % 33.4 % 34.2 % Concent (32.0-36.0) (32.0-36.0) (32.0-36.0) Red Cell Distribution Width 14.5 % 14.5 % 15.0 % (11.6-17.2) (11.6-17.2) (11.6-17.2) Platelet Count 407 TH/MM3 442 TH/MM3 382 TH/MM3 (150-450) (150-450) (150-450) Mean Platelet Volume 8.6 FL 8.0 FL 7.7 FL (7.0-11.0) (7.0-11.0) (7.0-11.0) Sodium Level 139 MEQ/L (136-145) Chloride Level 102 MEQ/L (98-107) Carbon Dioxide Level 29.4 MEQ/L (21.0-32.0) Anion Gap 8 MEQ/L (5-15) Blood Urea Nitrogen 12 MG/DL (7-18) Creatinine 0.42 MG/DL (0.50-1.00) Estimat Glomerular Filtration 150 ML/MIN Rate (>89) Random Glucose 173 MG/DL (74-106) Calcium Level 8.2 MG/DL (8.5-10.1) Neutrophils (%) (Auto) 78.2 % (16.0-70.0) Lymphocytes (%) (Auto) 6.8 % (9.0-44.0) Monocytes (%) (Auto) 14.3 % (0.0-8.0) Eosinophils (%) (Auto) 0.4 % (0.0-4.0) Basophils (%) (Auto) 0.3 % (0.0-2.0) Neutrophils # (Auto) 7.5 TH/MM3 (1.8-7.7) Lymphocytes # (Auto) 0.7 TH/MM3 (1.0-4.8) Monocytes # (Auto) 1.4 TH/MM3 (0-0.9) Eosinophils # (Auto) 0.0 TH/MM3 (0-0.4) Basophils # (Auto) 0.0 TH/MM3 (0-0.2) CBC Comment AUTO DIFF Differential Total Cells 100 Counted Neutrophils % (Manual) 82 % (16-70) Band Neutrophils % 3 % (0-6) Lymphocytes % 4 % (9-44) Monocytes % 10 % (0-8) Neutrophils # (Manual) 8.3 TH/MM3 (1.8-7.7) Myelocytes 1 % (0-0) Differential Comment FINAL DIFF MANUAL Platelet Estimate NORMAL (NORMAL) Platelet Morphology Comment NORMAL (NORMAL) Red Cell Morphology Comment NORMAL (NORMAL) . Result Diagram: 03/23/16 0532 03/22/16 6838 Patient/Family Conference Present at Family Conference: Spoke with patient at bedside and also spoke with patient's daughter, Lynnette, via telephone. . Family Conference Location: Bedside, Telephone Issues Discussed: * Palliative care role, purpose, approach * Patients general health, functional status, and cognitive changes in the months leading up to the current hospitalization * Patient/family understanding of the current medical problems * Patient/family understanding of prognosis * Patients goals of care as best understood from advance directives and/or conversations and/or values * Current medical treatment options and benefits/burdens of those options * Questions answered to the best of my ability * Palliative care contact information provided . Assessment and Plan Disease Oriented Problem List: (1) Osteoporosis (2) recent I/D left mandible (3) left mandibular abscess (4) Spinocerebellar ataxia (5) Blood glucose elevated (6) Hypokalemia (7) Sepsis (8) Right humeral fracture (9) Impaired mobility and ADLs (10) Coordination impairment (11) Osteoarthritis Symptom Scale: (1) Altered mental status Comment: Oriented to self only. Per facility staff report and daughter, the patient was alert and oriented prior to this hospitalization. Facility staff stated the patient was relatively independent, managing her own medications. The patient's daughter, Lynnette, states the patient is very sensitive to medications, especially those that are sedating. . (2) Pain Comment: Pain is likely secondary to recent abscess with I&D. Additional potential causes of pain include osteoarthritis, chronic shoulder pain status post fall/fracture, invasive lines, bedbound status, immobility etc. Morphine 2mg IV is available q30 minutes PRN for pain 610. The patient has received 4 doses in the past 24 hours for pain rated 2-6 on a non-verbal pain scale ( grimacing, tears, frown, tense and guarding). Patient denies pain on exam today 03/23/16, non-verbal pain at 4/10. . (3) Malnutrition Comment: The patient has had intermittent coughing with solids and liquids. Previous swallow evaluation made recommendation for esophageal dilatation, it is unclear if this procedure took place. Patient now refusing to eat. The patient's daughter reports the patient has been missing a significant amount of weight and not eating well for several months. GI was consulted and the patient was started on TPN. EGD with PEG tube placement tentatively scheduled for . Pertinent Non-Medical Issues Psychosocial: Patient is a . Patient lives at an [facility]. Her only child, daughter Lynnette, lives locally. Spiritual: No sikh affiliation. Legal: Per [place] statutes, in the absence of written advanced directives healthcare proxy decision-making falls to the patient's daughter, Lynnette Ford. Daughter states she is the designated health care surrogate - awaiting documentation. Ethical issues impacting care: No known ethical issues impacting care at this time. . Important Contacts Lynnette Ambrocio, daughter: [phone] . 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 Per medical notes, the patient has had a progressive decline in strength and coordination. She is currently confused and has been intermittently combative. The patient has had intermittent coughing with solids and liquids. Patient now refusing to eat, per daughter the patient has been losing a significant amount of weight and not eating well for several months. EGD with PEG tube placement planned an upcoming days. Although both facility staff and the patient daughter have indicated the patient was quite independent and managing her own meds prior to being hospitalized, the patient has a progressively debilitating condition placing her at risk for continued decline. . Code Status: Full Code Plan * FULL CODE * Decision making: Per [place] statutes, in the absence of written advanced directives healthcare proxy decision making would fall to the patient's daughter Cherie Ford. Lynnette states she is designated as the HCS - awaiting fax from facility. * Goals: Aggressive goals. Patient/dtr hopeful patient will be discharged soon so she can begin rehab. * Contacted [facility] to inquire about written advance directives. Spoke to Lauren - awaiting faxed copy of healthcare POA from facility. * Symptom managementpain: Pain is likely secondary to recent abscess with I&D. Additional potential causes of pain include osteoarthritis, chronic shoulder pain status post fall/fracture, invasive lines, bedbound status, immobility etc. Morphine 2mg IV is available q30 minutes PRN for pain 610. The patient has received 4 doses in the past 24 hours for pain rated 2-6 on a non-verbal pain scale (grimacing, tears, frown, tense and guarding). Patient denies pain on exam today 03/23/16, non-verbal pain 4 out of 10. Palliative care will continue to monitor PRN requirements and make recommendations as indicated. * Symptom managementaltered mental status: Oriented to self only. Per facility staff report and daughter, the patient was alert and oriented prior to this hospitalization. Facility staff stated the patient was relatively independent, managing her own medications. The patient's daughter, Lynnette, states the patient is very sensitive to medications, especially those that are sedating. * Symptom managementdysphasia: The patient has had intermittent coughing with solids and liquids. Previous swallow evaluation made recommendation for esophageal dilatation, it is unclear if this procedure took place. Patient now refusing to eat. The patient's daughter reports the patient has been missing a significant amount of weight and not eating well for several months. GI was consulted and the patient was started on TPN. EGD with PEG tube placement tentatively scheduled for 03/24/16 * Symptom managementconstipation: LBM: 03/18/16. Dulcolax suppository ordered daily PRN. * Palliative care contact information was provided to the patient's daughter, Lynnette Ford. * Palliative care will continue to follow this patient throughout her hospitalization to establish trust, assist with symptom management and clarification of medical treatment goals. . Thank you for the opportunity to participate in the care of Ms. Reilly. . Attestation To help prompt me to consider important information that might be impacting today's encounter and assessment, information from prior notes written by myself or my colleagues may have been "brought forward" into today's note. My signature on this note, however, is an attestation that I personally performed the exam, history, and/or decision-making noted today, and, unless otherwise indicated, the interactions with patient, family, and staff as well as the review of records all occurred today. I also attest that the listed assessment and stated plan reflect my best clinical judgment today based on the combination of historical information, prior notes, and today's exam/ interactions. When time spent is documented, it refers only to time spent today by the signer, or if indicated, combined time spent today by collaborating physician/nurse practitioner. . Fiordaliza Piper Mar 23, 2016 10:49
[2016-03-23] MEDS: CEFEPIME INJ 2,000 MG in SODIUM CHLORIDE 0.9% INJ 100 ML IV SCH (11:51)
[2016-03-23] MEDS: FLUCONAZOLE 400 MG PREMIX BAG 200 ML IV SCH (11:51)
[2016-03-23 12:00] VITALS: BP 184/76; PULSE 107; RESP 17; TEMP 97.2; O2SAT 95
--- NOTE | 2016-03-23 12:15 | HHI.GIFU ---
Subjective Remarks Resting in bed in no distress. Resting with eyes closed. (Jacqui Mayer) Objective Vitals I&O Vital Signs Date Time Temp Pulse Resp B/P Pulse Ox O2 Delivery O2 Flow Rate FiO2 03/23/16 08:00 97.0 88 16 125/65 99 03/23/16 08:00 97.0 88 16 125/65 99 03/23/16 04:00 97.6 88 20 108/68 100 03/23/16 00:00 97.8 90 20 132/60 99 03/22/16 23:32 16 03/22/16 21:13 16 03/22/16 20:00 98.9 94 20 138/64 98 03/22/16 16:00 97.9 95 18 143/75 96 I/O 03/22/16 03/22/16 03/22/16 03/23/16 03/23/16 03/23/16 07:00 15:00 23:00 07:00 15:00 23:00 Intake Total 0 ml 1168 ml 0 ml 0 ml Output Total 650 ml 850 ml 500 ml 600 ml Balance -650 ml 318 ml -500 ml -600 ml Intake Oral 0 ml 0 ml 0 ml 0 ml IV Total 661 ml TPN/PPN 507 ml Output Urine Total 650 ml 850 ml 500 ml 600 ml Stool Total 0 ml # Bowel Movements 0 0 0 Laboratory Laboratory Tests Test 03/23/16 05:32 White Blood Count 9.6 Red Blood Count 3.00 Hemoglobin 9.6 Hematocrit 28.1 Mean Corpuscular Volume 93.5 Mean Corpuscular Hemoglobin 32.0 Mean Corpuscular Hemoglobin 34.2 Concent Red Cell Distribution Width 15.0 Platelet Count 382 Mean Platelet Volume 7.7 Neutrophils (%) (Auto) 78.2 Lymphocytes (%) (Auto) 6.8 Monocytes (%) (Auto) 14.3 Eosinophils (%) (Auto) 0.4 Basophils (%) (Auto) 0.3 Neutrophils # (Auto) 7.5 Lymphocytes # (Auto) 0.7 Monocytes # (Auto) 1.4 Eosinophils # (Auto) 0.0 Basophils # (Auto) 0.0 CBC Comment AUTO DIFF Differential Total Cells 100 Counted Neutrophils % (Manual) 82 Band Neutrophils % 3 Lymphocytes % 4 Monocytes % 10 Neutrophils # (Manual) 8.3 Myelocytes 1 Differential Comment FINAL DIFF MANUAL Platelet Estimate NORMAL Platelet Morphology Comment NORMAL Red Cell Morphology Comment NORMAL Imaging Last Impressions Chest X-Ray 03/17/16 0000 Signed Impressions: Service Date/Time: Thursday, March 17, 2016 10:55 - CONCLUSION: 1. Increased density seen over the bases especially on the right thought to mainly be related to overlying soft tissue structures. A definitive consolidation is not clearly seen. 2. The lungs do appear hyperinflated. Anant Hu MD Neck CT 03/16/16 0000 Signed Impressions: Service Date/Time: Wednesday, March 16, 2016 09:37 - CONCLUSION: Dental abscess as described above extending from tonsillar fossa around the mandible to the parotid space with extension along the base of the tongue to the arch of the mandible. Air and fluid is evident. Sarkis Kurtz MD FACR Physical Exam HEENT: Normocephalic; atraumatic; no jaundice. Drsg left neck d/i. CHEST: CTA, Periods of sleep apnea CARDIAC: RRR ABDOMEN: Soft, nondistended, nontender; no hepatosplenomegaly; bowel sounds are present in all four quadrants. EXTREMITIES: No clubbing, cyanosis, or edema. SKIN: Normal; no rash; no jaundice. WATER MECHANIC: Lethargic, confused (Jacqui Mayer) Assessment and Plan Plan ASSESSMENT: - Dysphagia, Malnutrition. Hospitalized for left submandibular abscess, requiring multiple I&D and extraction of teeth. On Abx per ID. ST following, recommends NPO. Daughter had reported that she had significant weight loss over the past several months. TPN . GI consulted for PEG tube placement. Pt is on schedule for tomorrow. Palliative care consulted to help clarify residential goals. PLAN: - Plan for egd with peg tube placement on Wednesday - Obtain consents - NPO after MN Wednesday night - Hold Heparin after MN Wednesday night - On Abx - TPN - Supportive care - Further recommendations to follow based on results of above - Pt seen and examined by Dr. Thompson and myself and this note is written on her behalf (Jacqui Mayer) Jacqui Mayer Mar 23, 2016 12:14 Alexandra Thompson MD Mar 23, 2016 19:30
--- NOTE | 2016-03-23 13:52 | HHI.PR ---
Subjective Hospital Day: 7 Subjective Remarks s/p extraction teeth , I&D b/l neck abscess 03/17 awake, oriented to self unable to obtain ROS on TPN no fever NPO Review of Systems Constitutional Constitutional: Weakness Constitutional Remarks 12 point ROS unable to do Musculoskeletal MS: Discomfort/Pain Vitals/Results Intake & Output 03/22/16 03/22/16 03/23/16 15:00 23:00 07:00 Intake Total 1168 ml 0 ml 0 ml Output Total 850 ml 500 ml 600 ml Balance 318 ml -500 ml -600 ml Intake Oral 0 ml 0 ml 0 ml IV Total 661 ml TPN/PPN 507 ml Output Urine Total 850 ml 500 ml 600 ml Stool Total 0 ml # Bowel Movements 0 0 Vital Signs Vital Signs Date Time Temp Pulse Resp B/P Pulse Ox O2 Delivery O2 Flow Rate FiO2 03/23/16 08:00 97.0 88 16 125/65 99 03/23/16 08:00 97.0 88 16 125/65 99 03/23/16 04:00 97.6 88 20 108/68 100 03/23/16 00:00 97.8 90 20 132/60 99 03/22/16 23:32 16 03/22/16 21:13 16 03/22/16 20:00 98.9 94 20 138/64 98 03/22/16 16:00 97.9 95 18 143/75 96 CBC/BMP: 03/23/16 0532 03/22/16 0500 Lab Results Laboratory Tests Test 03/23/16 05:32 White Blood Count 9.6 TH/MM3 Red Blood Count 3.00 MIL/MM3 Hemoglobin 9.6 GM/DL Hematocrit 28.1 % Mean Corpuscular Volume 93.5 FL Mean Corpuscular Hemoglobin 32.0 PG Mean Corpuscular Hemoglobin 34.2 % Concent Red Cell Distribution Width 15.0 % Platelet Count 382 TH/MM3 Mean Platelet Volume 7.7 FL Neutrophils (%) (Auto) 78.2 % Lymphocytes (%) (Auto) 6.8 % Monocytes (%) (Auto) 14.3 % Eosinophils (%) (Auto) 0.4 % Basophils (%) (Auto) 0.3 % Neutrophils # (Auto) 7.5 TH/MM3 Lymphocytes # (Auto) 0.7 TH/MM3 Monocytes # (Auto) 1.4 TH/MM3 Eosinophils # (Auto) 0.0 TH/MM3 Basophils # (Auto) 0.0 TH/MM3 CBC Comment AUTO DIFF Differential Total Cells 100 Counted Neutrophils % (Manual) 82 % Band Neutrophils % 3 % Lymphocytes % 4 % Monocytes % 10 % Neutrophils # (Manual) 8.3 TH/MM3 Myelocytes 1 % Differential Comment FINAL DIFF MANUAL Platelet Estimate NORMAL Platelet Morphology Comment NORMAL Red Cell Morphology Comment NORMAL Physical Exam General General Appearance: No Acute Distress, Anxious Eyes Eye Exam: Pupils Equal, Pupils Reactive Ears & Nose Ears & Nose Exam: Nasal Mucosa [place] Throat Throat Remarks oral mucosa dry Neck Neck Exam: Nuchal Rigidity Neck Remarks neck with dressing D/I Pulmonary Resp Exam: Breath Sounds Equal, No Distress, Poor Inspiratory Effort Cardiology CV Exam: Regular, Normal Sinus Rhythm Gastrointestinal/Abdomen GI Exam: Soft, Non-Tender, Bowel Sounds Present, Non-Distended, Bowel Sounds Hypoactive Genitourinary Exam: Clear Urine Remarks BUSBY Musculoskeletal MS Exam: Atrophy, Unable to Ambulate Integumentary Skin Exam: Warm, Dry Extremeties Extremities Exam: Pedal Pulses Palpable, Trace Edema Neurologic Neuro Exam: Awake, Moving All Extremities, No Focal Deficits VTE Prophylaxis VTE Prophylaxis Device: SCDs VTE Prophylaxis Meds: Heparin PUD Prophylasis PUD Remarks PEPCID Assessment/Plan Problem List: (1) Sepsis (2) Altered mental status (3) Blood glucose elevated (4) Hypokalemia (5) Spinocerebellar ataxia (6) left mandibular abscess (7) recent I/D left mandible (8) History of recent dental procedure Assessment/Plan 65 y/o woman with admitted to [facility] on 03/11/2016 b/l neck, & left mandibular abscess Streptococcus anginosus; S/P emergent exploratory surgery and i&d of abscess per Dr. Carter. Recent dental procedure on 03/05/2016 on the right side. s/p intubation for airway protection. Transferred to [facility] for evaluation by [facility]. s/p extraction teeth 02/28, -s/p I&D b/l neck abscess 03/[address] Sanderson -2 of the oral drains were removed; external drain removed 03/21/16 -Speech therapy for swallow eval noted -Patient unable to eat due to her poor cognitive functions -NGT could not be passed Continue TPN and lipids for parenteral feeding - GI for PEG placement, input appreciated. For EGD and PEG 03/24 -wound care -analgesic/ add Toradol for pain control without altering her mentation s/p sepsis, resolving -continue antibiotics, -ID Follow up --CT of neck noted -WBC improving -Cultures remain negative Hypokalemia-replace & monitor -stable Elevated blood glucose-on TPN now -continue with accu checks and ISS AMS, suspect metabolic Encephalopathy Appears to be improving -Neuro checks Hx of spinocerebellar ataxia -pt. wheelchair bound, lives at [facility] with PT Heparin/SCDs for DVT prophylaxis Pepcid for GI prophylaxis CM for dc planning, hopefully discharge next 1-2 days Nutrition consult for tube feeding recommendations D/W RN D/W pt D/W Dr. Estrada This patient was seen by myself and Dr. Estrada, this note is written on his behalf. Problem Qualifiers (1) Sepsis: Qualified Code: A41.9 - Sepsis, due to unspecified organism (2) Altered mental status: Qualified Code: R41.0 - Disorientation Fabiana Grossman Mar 23, 2016 13:52
[2016-03-23] MEDS ORDERED: BISACODYL 10 MG SUPP RECTAL PRN (14:15)
--- NOTE | 2016-03-23 14:17 | HHI.IDPN ---
Subjective Subjective Remarks Notes reviewed Temps better Nothing new on C/S OR C/S oral naga Mental status better All josefina drains have been removed Antibiotics Unasyn Cefepime Diflucan Past Medical History Spinocerebellar ataxia Past Surgical History Right hand surgery Breast augmentation Question section Allergies: Coded Allergies: Codeine (Verified Allergy, Unknown, 02/03/16) Vicodin (Verified Allergy, Unknown, 02/03/16) Objective . Vital Signs Date Time Temp Pulse Resp B/P Pulse Ox O2 Delivery O2 Flow Rate FiO2 03/23/16 12:00 97.2 107 17 184/76 95 03/23/16 08:00 97.0 88 16 125/65 99 03/23/16 08:00 97.0 88 16 125/65 99 03/23/16 04:00 97.6 88 20 108/68 100 03/23/16 00:00 97.8 90 20 132/60 99 03/22/16 23:32 16 03/22/16 21:13 16 03/22/16 20:00 98.9 94 20 138/64 98 03/22/16 16:00 97.9 95 18 143/75 96 03/22/16 03/22/16 03/23/16 15:00 23:00 07:00 Intake Total 1168 ml 0 ml 0 ml Output Total 850 ml 500 ml 600 ml Balance 318 ml -500 ml -600 ml Intake Oral 0 ml 0 ml 0 ml IV Total 661 ml TPN/PPN 507 ml Output Urine Total 850 ml 500 ml 600 ml Stool Total 0 ml # Bowel Movements 0 0 . Laboratory Tests Test 03/22/16 03/23/16 05:00 05:32 White Blood Count 14.6 TH/MM3 9.6 TH/MM3 Red Blood Count 3.32 MIL/MM3 3.00 MIL/MM3 Hemoglobin 10.3 GM/DL 9.6 GM/DL Hematocrit 30.7 % 28.1 % Mean Corpuscular Volume 92.5 FL 93.5 FL Mean Corpuscular Hemoglobin 30.9 PG 32.0 PG Mean Corpuscular Hemoglobin 33.4 % 34.2 % Concent Red Cell Distribution Width 14.5 % 15.0 % Platelet Count 442 TH/MM3 382 TH/MM3 Mean Platelet Volume 8.0 FL 7.7 FL Neutrophils (%) (Auto) 78.2 % Lymphocytes (%) (Auto) 6.8 % Monocytes (%) (Auto) 14.3 % Eosinophils (%) (Auto) 0.4 % Basophils (%) (Auto) 0.3 % Neutrophils # (Auto) 7.5 TH/MM3 Lymphocytes # (Auto) 0.7 TH/MM3 Monocytes # (Auto) 1.4 TH/MM3 Eosinophils # (Auto) 0.0 TH/MM3 Basophils # (Auto) 0.0 TH/MM3 CBC Comment AUTO DIFF Differential Total Cells 100 Counted Neutrophils % (Manual) 82 % Band Neutrophils % 3 % Lymphocytes % 4 % Monocytes % 10 % Neutrophils # (Manual) 8.3 TH/MM3 Myelocytes 1 % Differential Comment FINAL DIFF MANUAL Platelet Estimate NORMAL Platelet Morphology Comment NORMAL Red Cell Morphology Comment NORMAL Laboratory Tests Test 03/22/16 05:00 Sodium Level 139 MEQ/L Potassium Level 3.5 MEQ/L Chloride Level 102 MEQ/L Carbon Dioxide Level 29.4 MEQ/L Anion Gap 8 MEQ/L Blood Urea Nitrogen 12 MG/DL Creatinine 0.42 MG/DL Estimat Glomerular Filtration 150 ML/MIN Rate Random Glucose 173 MG/DL Calcium Level 8.2 MG/DL Imaging Chest X-Ray 03/17/16 0000 Signed Impressions: Service Date/Time: Thursday, March 17, 2016 10:55 - CONCLUSION: 1. Increased density seen over the bases especially on the right thought to mainly be related to overlying soft tissue structures. A definitive consolidation is not clearly seen. 2. The lungs do appear hyperinflated. Anant Hu MD Neck CT 03/16/16 0000 Signed Impressions: Service Date/Time: Wednesday, March 16, 2016 09:37 - CONCLUSION: Dental abscess as described above extending from tonsillar fossa around the mandible to the parotid space with extension along the base of the tongue to the arch of the mandible. Air and fluid is evident. Sarkis Kurtz MD FACR Physical Exam GENERAL: More awake, following commands SKIN: Cool and dry. No generalized rash. HEENT: [place] conjunctivae, no petechia or hemorrhage. No scleral icterus. Airway patent. NECK: Incision in neck with reddish brown drainage, has some min erythema CARDIOVASCULAR: Regular rate and rhythm without murmurs, gallops, or rubs. RESPIRATORY: Clear to auscultation. Breath sounds equal bilaterally. Has some upper respiratory sounds. GASTROINTESTINAL: Abdomen soft, mildly distended, not guarding, no rebound. MUSCULOSKELETAL: Extremities without clubbing, cyanosis, or edema. NEUROLOGICAL: Awake, focusing. PSYCH: Unable to assess LINE: Line with no evidence of infection : Membreno cath in place, urine looks clear Assessment & Plan Remarks IMPRESSION Strep anginosus sepsis due to L neck abscess Yoan neck abscess S/P I and D deep L neck abscess, S/P L neck exploration in [facility] Now S/P I and D yoan neck abscess and tooth extraction Encephalopathy, better Leukocytosis, resolved RECOMMENDATION Continue Unasyn Stop Cefepime and Diflucan Monitor progress Still with a lot of drainage in the neck incision Pati Cerda MD Mar 23, 2016 14:17
[2016-03-23 16:00] VITALS: BP 107/56; PULSE 82; RESP 17; TEMP 97.9; O2SAT 99
--- NOTE | 2016-03-23 16:43 | HHI.PR ---
Subjective Remarks POD 6s/p extraction teeth 18/31, I&D b/l neck abscess pt seen and examined daughter at bedside following commands better today, more oriented. denies any pain Objective Vital Signs Date Time Temp Pulse Resp B/P Pulse Ox O2 Delivery O2 Flow Rate FiO2 03/23/16 12:00 97.2 107 17 184/76 95 03/23/16 08:00 97.0 88 16 125/65 99 03/23/16 08:00 97.0 88 16 125/65 99 03/23/16 04:00 97.6 88 20 108/68 100 03/23/16 00:00 97.8 90 20 132/60 99 03/22/16 23:32 16 03/22/16 21:13 16 03/22/16 20:00 98.9 94 20 138/64 98 I/O 03/22/16 03/22/16 03/22/16 03/23/16 03/23/16 03/23/16 07:00 15:00 23:00 07:00 15:00 23:00 Intake Total 0 ml 1168 ml 0 ml 0 ml 0 ml Output Total 650 ml 850 ml 500 ml 600 ml 1800 ml Balance -650 ml 318 ml -500 ml -600 ml -1800 ml Intake Oral 0 ml 0 ml 0 ml 0 ml 0 ml IV Total 661 ml TPN/PPN 507 ml Output Urine Total 650 ml 850 ml 500 ml 600 ml 1800 ml Stool Total 0 ml # Bowel Movements 0 0 0 0 Result Diagram: 03/23/16 0532 03/22/16 0500 Objective Remarks wbc 9.6 some discharge/ pus noted draining from left neck I & D site, minimal heme noted neck soft , trach midline, no erythema no elevation fom/tongue, no vestibule edema, full mouth opening, tissues pink and well perfused extraction/ I&D sites hemostatic dried heme noted in mouth Assessment and Plan Assessment and Plan POD 6 s/p extraction teeth 18/31, I&D b/l neck abscess neck culture - alpha strep,, no fungi/ no AFB, skin naga continue abx afebrile, wbc normal range will follow pt appears more comfortable today continue dressing changes peg tube for feeding planned for tomorrow no surgical intervention at this time Venkatesh Sanderson DMD Mar 23, 2016 16:43
[2016-03-23 20:00] VITALS: BP 138/68; PULSE 99; RESP 17; TEMP 97.5; O2SAT 99
[2016-03-23] MEDS: CLINIMIX E 4.25/25 2000 mL- >42 mls/hr IV-CENTRAL SCH ×3 (21:20)
[2016-03-24] VITALS (8 sets, daily range): BP systolic 118–130; BP diastolic 59–64; PULSE 76–108; RESP 17–19; TEMP 96.7–97; O2SAT 95–99
[2016-03-24] MEDS: KETOROLAC TROMETHAMINE 30 MG/ML (IVP) VIAL IV PUSH SCH ×2 (03:16→08:32)
[2016-03-24] MEDS: AMPICILLIN-SULBACTAM INJ 3 GM in SODIUM CHLORIDE 0.9% INJ 100 ML IV SCH ×4 (05:40→23:23)
[2016-03-24] MEDS: HIGH DOSE INSULIN NOVOLOG SUPPLEMENTAL SCALE SQ SCH ×3 (05:46→17:53)
[2016-03-24] MEDS: SODIUM CHLORIDE 0.9% FLUSH 5 ML FLUSH FLUSH SCH ×2 (08:33→23:08)
[2016-03-24] MEDS: FAMOTIDINE 20 MG/2 ML VIAL IV SCH ×2 (08:33→23:09)
--- NOTE | 2016-03-24 12:02 | HHI.PR ---
Subjective Hospital Day: 7 Subjective Remarks s/p extraction teeth , I&D b/l neck abscess 03/17 awake, oriented to self, more alert speech garbled but talking more had BM on TPN going for peg today no fever no pain when asked unable to obtain ROS Review of Systems Constitutional Constitutional: Weakness Constitutional Remarks 12 point ROS unable to do Musculoskeletal MS: Discomfort/Pain Vitals/Results Intake & Output 03/23/16 03/23/16 03/24/16 15:00 23:00 07:00 Intake Total 1429 ml 600 ml 0 ml Output Total 1800 ml 650 ml 900 ml Balance -371 ml -50 ml -900 ml Intake Oral 0 ml 0 ml 0 ml IV Total 765 ml TPN/PPN 664 ml 600 ml Output Urine Total 1800 ml 650 ml 900 ml # Bowel Movements 0 1 Vital Signs Vital Signs Date Time Temp Pulse Resp B/P Pulse Ox O2 Delivery O2 Flow Rate FiO2 03/24/16 08:00 97.0 83 19 118/63 99 03/24/16 04:00 96.8 76 17 128/62 99 03/24/16 00:00 97.0 76 17 130/64 99 03/23/16 20:00 97.5 99 17 138/68 99 03/23/16 16:00 97.9 82 17 107/56 99 03/23/16 12:00 97.2 107 17 184/76 95 CBC/BMP: 03/23/16 0532 03/22/16 0500 Physical Exam General General Appearance: No Acute Distress, Comfortable Eyes Eye Exam: Pupils Equal, Pupils Reactive Ears & Nose Ears & Nose Exam: Nasal Mucosa [place] Throat Throat Remarks oral mucosa dry Neck Neck Exam: Nuchal Rigidity Neck Remarks neck with dressing D/I Pulmonary Resp Exam: Breath Sounds Equal, No Distress, Poor Inspiratory Effort Cardiology CV Exam: Regular, Normal Sinus Rhythm Gastrointestinal/Abdomen GI Exam: Soft, Non-Tender, Bowel Sounds Present, Non-Distended, Bowel Sounds Hypoactive Genitourinary Exam: Clear Urine Remarks BUSBY Musculoskeletal MS Exam: Atrophy, Unable to Ambulate Integumentary Skin Exam: Warm, Dry Extremeties Extremities Exam: Pedal Pulses Palpable, Trace Edema Neurologic Neuro Exam: Alert, Awake, Moving All Extremities, No Focal Deficits VTE Prophylaxis VTE Prophylaxis Device: SCDs VTE Prophylaxis Meds: Heparin PUD Prophylasis PUD Remarks PEPCID Assessment/Plan Problem List: (1) Sepsis (2) Altered mental status (3) Blood glucose elevated (4) Hypokalemia (5) Spinocerebellar ataxia (6) left mandibular abscess (7) recent I/D left mandible (8) History of recent dental procedure Assessment/Plan 65 y/o woman with admitted to [facility] on 03/11/2016 b/l neck, & left mandibular abscess Streptococcus anginosus; S/P emergent exploratory surgery and i&d of abscess per Dr. Carter. Recent dental procedure on 03/05/2016 on the right side. s/p intubation for airway protection. Transferred to [facility] for evaluation by [facility]. s/p extraction teeth 02/28, -s/p I&D b/l neck abscess 03/[address] Sanderson -2 of the oral drains were removed; external drain removed 03/21/16 -Speech therapy for swallow eval noted -Patient unable to eat due to her poor cognitive functions -NGT could not be passed Continue TPN and lipids for parenteral feeding - GI for PEG placement, input appreciated. For EGD and PEG 03/24 -wound care -analgesic/ add Toradol for pain control without altering her mentation s/p sepsis, resolving -continue antibiotics, -ID Follow up --CT of neck noted -WBC improving -Cultures remain negative Hypokalemia-replace & monitor -stable Elevated blood glucose-on TPN now -continue with accu checks and ISS AMS, suspect metabolic Encephalopathy Appears to be improving -Neuro checks Hx of spinocerebellar ataxia -pt. wheelchair bound, lives at [facility] with PT Heparin/SCDs for DVT prophylaxis Pepcid for GI prophylaxis CM for dc planning, hopefully discharge next 1-2 days Nutrition consult for tube feeding recommendations Palliative care following, input appreciated, D/W LYN, goals remain aggressive D/W RN D/W pt D/W Dr. Estrada D/W Maria Victoria NICHOLSON This patient was seen by myself and Dr. Estrada, this note is written on his behalf. Problem Qualifiers (1) Sepsis: Qualified Code: A41.9 - Sepsis, due to unspecified organism (2) Altered mental status: Qualified Code: R41.0 - Disorientation Fabiana Grossman Mar 24, 2016 12:02
--- NOTE | 2016-03-24 12:43 | HHI.IDPN ---
Subjective Subjective Remarks Notes reviewed Temps ok Going for PEG Nothing new on C/S OR C/S oral naga Mental status better Antibiotics Unasyn Past Medical History Spinocerebellar ataxia Past Surgical History Right hand surgery Breast augmentation Question section Allergies: Coded Allergies: Codeine (Verified Allergy, Unknown, 02/03/16) Vicodin (Verified Allergy, Unknown, 02/03/16) Objective . Vital Signs Date Time Temp Pulse Resp B/P Pulse Ox O2 Delivery O2 Flow Rate FiO2 03/24/16 08:00 97.0 83 19 118/63 99 03/24/16 04:00 96.8 76 17 128/62 99 03/24/16 00:00 97.0 76 17 130/64 99 03/23/16 20:00 97.5 99 17 138/68 99 03/23/16 16:00 97.9 82 17 107/56 99 03/23/16 03/23/16 03/24/16 15:00 23:00 07:00 Intake Total 1429 ml 600 ml 0 ml Output Total 1800 ml 650 ml 900 ml Balance -371 ml -50 ml -900 ml Intake Oral 0 ml 0 ml 0 ml IV Total 765 ml TPN/PPN 664 ml 600 ml Output Urine Total 1800 ml 650 ml 900 ml # Bowel Movements 0 1 . Laboratory Tests Test 03/23/16 05:32 White Blood Count 9.6 TH/MM3 Red Blood Count 3.00 MIL/MM3 Hemoglobin 9.6 GM/DL Hematocrit 28.1 % Mean Corpuscular Volume 93.5 FL Mean Corpuscular Hemoglobin 32.0 PG Mean Corpuscular Hemoglobin 34.2 % Concent Red Cell Distribution Width 15.0 % Platelet Count 382 TH/MM3 Mean Platelet Volume 7.7 FL Neutrophils (%) (Auto) 78.2 % Lymphocytes (%) (Auto) 6.8 % Monocytes (%) (Auto) 14.3 % Eosinophils (%) (Auto) 0.4 % Basophils (%) (Auto) 0.3 % Neutrophils # (Auto) 7.5 TH/MM3 Lymphocytes # (Auto) 0.7 TH/MM3 Monocytes # (Auto) 1.4 TH/MM3 Eosinophils # (Auto) 0.0 TH/MM3 Basophils # (Auto) 0.0 TH/MM3 CBC Comment AUTO DIFF Differential Total Cells 100 Counted Neutrophils % (Manual) 82 % Band Neutrophils % 3 % Lymphocytes % 4 % Monocytes % 10 % Neutrophils # (Manual) 8.3 TH/MM3 Myelocytes 1 % Differential Comment FINAL DIFF MANUAL Platelet Estimate NORMAL Platelet Morphology Comment NORMAL Red Cell Morphology Comment NORMAL Imaging Chest X-Ray 03/17/16 0000 Signed Impressions: Service Date/Time: Thursday, March 17, 2016 10:55 - CONCLUSION: 1. Increased density seen over the bases especially on the right thought to mainly be related to overlying soft tissue structures. A definitive consolidation is not clearly seen. 2. The lungs do appear hyperinflated. Anant Hu MD Neck CT 03/16/16 0000 Signed Impressions: Service Date/Time: Wednesday, March 16, 2016 09:37 - CONCLUSION: Dental abscess as described above extending from tonsillar fossa around the mandible to the parotid space with extension along the base of the tongue to the arch of the mandible. Air and fluid is evident. Sarkis Kurtz MD FACR Physical Exam GENERAL: More awake, following commands SKIN: No generalized rash. HEENT: [place] conjunctivae, no petechia or hemorrhage. No scleral icterus. Airway patent. NECK: Incision in neck with reddish brown drainage CARDIOVASCULAR: Regular rate and rhythm without murmurs, gallops, or rubs. RESPIRATORY: Clear to auscultation. Breath sounds equal bilaterally. Has some upper respiratory sounds. GASTROINTESTINAL: Abdomen soft, mildly distended, not guarding, no rebound. MUSCULOSKELETAL: Extremities without clubbing, cyanosis, or edema. NEUROLOGICAL: Awake, focusing. PSYCH: Unable to assess LINE: Line with no evidence of infection : Membreno cath in place, urine looks clear Assessment & Plan Remarks IMPRESSION Strep anginosus sepsis due to L neck abscess Yoan neck abscess S/P I and D deep L neck abscess, S/P L neck exploration in [facility] Now S/P I and D yoan neck abscess and tooth extraction Encephalopathy, better Leukocytosis, resolved RECOMMENDATION Continue Unasyn Monitor progress For PEG placement today Pati Cerda MD Mar 24, 2016 12:43
[2016-03-24] MEDS: MORPHINE SULFATE 4 MG/ML INJ IV PRN ×2 (17:34→23:10)
--- NOTE | 2016-03-24 21:16 | HHI.HCPN ---
Reason for visit a. To assist with evaluation and management of symptoms including: pain, malnutrition, altered metal status, constipation b. To assist medical decision maker(s) with: better understanding of current medical conditions; weighing benefits/burdens of medical treatment options; making medical treatment decisions. . Subjective/Interval History Late entry- Patient seen and assessed in room 1727 at 1030. More alert than yesterday. Oriented to self, thinks she is at the [facility] where she resides. Speech is garbled but talking more. Patient has no complaints and denies pain. PRN morphine is available but has not bee required over the previous 24 hours. Patient continues to refuse PO intake. On TPN. Speech therapy is following. Per speech therapy, patient tolerates pureed consistency and honey consistency thickened liquids without overt signs and symptoms of aspiration. However remains orally defensive, and ST thinks it is unlikely she will tolerate adequate nutritional intake. PEG tube placement planned today. When benefits vs. risks were discussed the patient states she wants to proceed with artificial nutrition/PEG tube placement. Discussed with patient's daughter yesterday and she also wishes to proceed with PEG tube placement. Afebrile. Leukocytosis resolved. Remains on IV antibiotics. ID following . Advance Directives Advance Directive Specifics Date completed: 07/26/15 . Health Care Surrogate(s): Patient's daughter, Lynnette Ambrocio, is designated as the health care surrogate. Levon Ambrocio, son in law, has been designated as the alternate health care surrogate. . Documented care wishes: None Objective Vital Signs Date Time Temp Pulse Resp B/P Pulse Ox O2 Delivery O2 Flow Rate FiO2 03/24/16 17:39 18 03/24/16 16:00 97.0 78 18 126/63 95 03/24/16 14:25 82 18 114/65 98 03/24/16 14:20 80 20 112/63 98 03/24/16 14:15 98.1 86 18 112/65 98 03/24/16 13:32 97.0 83 18 118/63 99 03/24/16 12:00 97.0 83 18 119/59 99 03/24/16 08:10 84 03/24/16 08:00 97.0 83 19 118/63 99 03/24/16 04:00 96.8 76 17 128/62 99 03/24/16 00:00 97.0 76 17 130/64 99 Intake & Output 03/24/16 03/24/16 07:00 19:00 Intake Total 600 ml 500 ml Output Total 1550 ml 650 ml Balance -950 ml -150 ml Intake Oral 0 ml 0 ml IV Total 500 ml TPN/PPN 600 ml Output Urine Total 1550 ml 650 ml # Bowel Movements 1 1 . Physical Exam CONSTITUTIONAL/GENERAL: This is a cachectic 66-year-old female, in no apparent distress. TUBES/LINES/DRAINS: PICC line, Membreno SKIN: No jaundice, rashes, or lesions. Ecchymoses on upper extremities. No wounds seen anteriorly. Skin temperature appropriate. Not diaphoretic. HEAD: Atraumatic. Normocephalic. EYES: Pupils equal and round and reactive. Extraocular motions intact. No scleral icterus. No injection or drainage. Fundi not examined. ENT: Hearing grossly normal. Nose without bleeding or purulent drainage. NECK: Trachea midline. Dressing on left side of the neck clean, dry and intact. CARDIOVASCULAR: Regular rate and rhythm without murmurs, gallops, or rubs. No JVD. Peripheral pulses symmetric. RESPIRATORY/CHEST: Symmetric, unlabored respirations. Clear to auscultation. No wheezes, rales, or rhonchi. GASTROINTESTINAL: Abdomen soft, non-tender, nondistended. No guarding. Bowel sounds present. GENITOURINARY: Without palpable bladder distension. Membreno catheter in place. MUSCULOSKELETAL: Extremities without clubbing, cyanosis, or edema. No mottling or clubbing. LYMPHATICS: No palpable cervical or supraclavicular adenopathy. NEUROLOGICAL: Oriented to person only. Lethargic. Weak. Attempts to follow commands, moving all extremities 4. Garbled speech. PSYCHIATRIC: No obvious anxiety/depression. No apparent hallucinations or other psychotic thought process. . Diagnostic Tests Laboratory Laboratory Tests Test 03/22/16 03/23/16 05:00 05:32 White Blood Count 14.6 TH/MM3 9.6 TH/MM3 (4.0-11.0) (4.0-11.0) Red Blood Count 3.32 MIL/MM3 3.00 MIL/MM3 (4.00-5.30) (4.00-5.30) Hemoglobin 10.3 GM/DL 9.6 GM/DL (11.6-15.3) (11.6-15.3) Hematocrit 30.7 % 28.1 % (35.0-46.0) (35.0-46.0) Mean Corpuscular Volume 92.5 FL 93.5 FL (80.0-100.0) (80.0-100.0) Mean Corpuscular Hemoglobin 30.9 PG 32.0 PG (27.0-34.0) (27.0-34.0) Mean Corpuscular Hemoglobin 33.4 % 34.2 % Concent (32.0-36.0) (32.0-36.0) Red Cell Distribution Width 14.5 % 15.0 % (11.6-17.2) (11.6-17.2) Platelet Count 442 TH/MM3 382 TH/MM3 (150-450) (150-450) Mean Platelet Volume 8.0 FL 7.7 FL (7.0-11.0) (7.0-11.0) Sodium Level 139 MEQ/L (136-145) Potassium Level 3.5 MEQ/L (3.5-5.1) Chloride Level 102 MEQ/L (98-107) Carbon Dioxide Level 29.4 MEQ/L (21.0-32.0) Anion Gap 8 MEQ/L (5-15) Blood Urea Nitrogen 12 MG/DL (7-18) Creatinine 0.42 MG/DL (0.50-1.00) Estimat Glomerular Filtration 150 ML/MIN Rate (>89) Random Glucose 173 MG/DL (74-106) Calcium Level 8.2 MG/DL (8.5-10.1) Neutrophils (%) (Auto) 78.2 % (16.0-70.0) Lymphocytes (%) (Auto) 6.8 % (9.0-44.0) Monocytes (%) (Auto) 14.3 % (0.0-8.0) Eosinophils (%) (Auto) 0.4 % (0.0-4.0) Basophils (%) (Auto) 0.3 % (0.0-2.0) Neutrophils # (Auto) 7.5 TH/MM3 (1.8-7.7) Lymphocytes # (Auto) 0.7 TH/MM3 (1.0-4.8) Monocytes # (Auto) 1.4 TH/MM3 (0-0.9) Eosinophils # (Auto) 0.0 TH/MM3 (0-0.4) Basophils # (Auto) 0.0 TH/MM3 (0-0.2) CBC Comment AUTO DIFF Differential Total Cells 100 Counted Neutrophils % (Manual) 82 % (16-70) Band Neutrophils % 3 % (0-6) Lymphocytes % 4 % (9-44) Monocytes % 10 % (0-8) Neutrophils # (Manual) 8.3 TH/MM3 (1.8-7.7) Myelocytes 1 % (0-0) Differential Comment FINAL DIFF MANUAL Platelet Estimate NORMAL (NORMAL) Platelet Morphology Comment NORMAL (NORMAL) Red Cell Morphology Comment NORMAL (NORMAL) . Result Diagram: 03/23/16 0532 03/22/16 0500 Assessment and Plan Disease Oriented Problem List: (1) Osteoporosis (2) recent I/D left mandible (3) left mandibular abscess (4) Spinocerebellar ataxia (5) Blood glucose elevated (6) Hypokalemia (7) Sepsis (8) Right humeral fracture (9) Impaired mobility and ADLs (10) Coordination impairment (11) Osteoarthritis Symptom Scale: (1) Altered mental status Comment: Oriented to self only. Per facility staff report and daughter, the patient was alert and oriented prior to this hospitalization. Facility staff stated the patient was relatively independent, managing her own medications. The patient's daughter, Lynnette, states the patient is very sensitive to medications, especially those that are sedating. . (2) Pain Comment: Pain is likely secondary to recent abscess with I&D. Additional potential causes of pain include osteoarthritis, chronic shoulder pain status post fall/fracture, invasive lines, bedbound status, immobility etc. Morphine 2mg IV is available q30 minutes PRN for pain 610. No PRN medications utilized in the past 24 hours. Patient denies pain when asked, no non-verbal s/s pain observed. . (3) Malnutrition Comment: The patient has had intermittent coughing with solids and liquids. Previous swallow evaluation made recommendation for esophageal dilatation, it is unclear if this procedure took place. Patient now refusing to eat. The patient's daughter reports the patient has been missing a significant amount of weight and not eating well for several months. GI was consulted and the patient was started on TPN. EGD with PEG placement later today. Pertinent Non-Medical Issues Psychosocial: Patient is a . Patient lives at an [facility]. Her only child, daughter Lynnette, lives locally. Spiritual: No shinto affiliation. Legal: Per [place] statutes, in the absence of written advanced directives healthcare proxy decision-making falls to the patient's daughter, Lynnette Ford. Daughter states she is the designated health care surrogate - awaiting documentation. Ethical issues impacting care: No known ethical issues impacting care at this time. . Important Contacts Lynnette Ambrocio, daughter: [phone] . 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 Per medical notes, the patient has had a progressive decline in strength and coordination. She is currently confused and has been intermittently combative. The patient has had intermittent coughing with solids and liquids. Patient now refusing to eat, per daughter the patient has been losing a significant amount of weight and not eating well for several months. EGD with PEG tube placement planned an upcoming days. Although both facility staff and the patient daughter have indicated the patient was quite independent and managing her own meds prior to being hospitalized, the patient has a progressively debilitating condition placing her at risk for continued decline. . Code Status: Full Code Plan * FULL CODE * Decision making: Per [place] statutes, in the absence of written advanced directives healthcare proxy decision making would fall to the patient's daughter Cherie Ford. Lynnette states she is designated as the HCS - awaiting fax from facility. * Goals: Aggressive goals. Patient/dtr hopeful patient will be discharged soon so she can begin rehab. PEG placement later today. * Contacted [facility] to inquire about written advance directives. Spoke to Lauren - awaiting faxed copy of healthcare POA from facility. * Symptom managementpain: Pain is likely secondary to recent abscess with I&D. Additional potential causes of pain include osteoarthritis, chronic shoulder pain status post fall/fracture, invasive lines, bedbound status, immobility etc. Morphine 2mg IV is available q30 minutes PRN for pain 610. No PRN medications utilized in the past 24 hours. Patient denies pain when asked, no non-verbal s/s pain observed. Palliative care will continue to monitor PRN requirements and make recommendations as indicated. * Symptom managementaltered mental status: Oriented to self only. Per facility staff report and daughter, the patient was alert and oriented prior to this hospitalization. Facility staff stated the patient was relatively independent, managing her own medications. The patient's daughter, Lynnette, states the patient is very sensitive to medications, especially those that are sedating. * Symptom managementdysphasia: The patient has had intermittent coughing with solids and liquids. Previous swallow evaluation made recommendation for esophageal dilatation, it is unclear if this procedure took place. Patient now refusing to eat. The patient's daughter reports the patient has been missing a significant amount of weight and not eating well for several months. GI was consulted and the patient was started on TPN. EGD with PEG tube placement later today 03/24/16 * Symptom managementconstipation: Dulcolax suppository ordered daily PRN. LBM: 03/24/16 * Palliative care contact information was provided to the patient's daughter, Lynnette Ford. * Palliative care will continue to follow this patient throughout her hospitalization to establish trust, assist with symptom management and clarification of medical treatment goals. . Attestation To help prompt me to consider important information that might be impacting today's encounter and assessment, information from prior notes written by myself or my colleagues may have been "brought forward" into today's note. My signature on this note, however, is an attestation that I personally performed the exam, history, and/or decision-making noted today, and, unless otherwise indicated, the interactions with patient, family, and staff as well as the review of records all occurred today. I also attest that the listed assessment and stated plan reflect my best clinical judgment today based on the combination of historical information, prior notes, and today's exam/ interactions. When time spent is documented, it refers only to time spent today by the signer, or if indicated, combined time spent today by collaborating physician/nurse practitioner. . Fiordaliza Piper Mar 24, 2016 21:15
[2016-03-24] MEDS: CLINIMIX E 4.25/25 2000 mL- >42 mls/hr IV-CENTRAL SCH ×3 (23:08)
[2016-03-25] VITALS: BP 124/67; PULSE 91; RESP 17; TEMP 96.4; O2SAT 96
[2016-03-25] MEDS: HIGH DOSE INSULIN NOVOLOG SUPPLEMENTAL SCALE SQ SCH ×5 (00:06→23:01)
[2016-03-25] MEDS: MORPHINE SULFATE 4 MG/ML INJ IV PRN ×3 (02:19→07:40)
[2016-03-25 04:00] VITALS: BP 157/75; PULSE 118; RESP 17; TEMP 96.4; O2SAT 97
[2016-03-25] MEDS: AMPICILLIN-SULBACTAM INJ 3 GM in SODIUM CHLORIDE 0.9% INJ 100 ML IV SCH ×3 (06:23→18:04)
[2016-03-25] MEDS: FAMOTIDINE 20 MG/2 ML VIAL IV SCH (07:40)
--- NOTE | 2016-03-25 07:50 | HHI.PR ---
Subjective Remarks POD 8s/p extraction teeth , I&D b/l neck abscess pt seen and examined nurse at bedside following commands better today, more oriented. denies any pain, talking more today Objective Vital Signs Date Time Temp Pulse Resp B/P Pulse Ox O2 Delivery O2 Flow Rate FiO2 03/25/16 04:00 96.4 118 17 157/75 97 03/25/16 00:00 96.4 91 17 124/67 96 03/24/16 20:00 108 03/24/16 20:00 96.7 104 17 127/60 96 03/24/16 17:39 18 03/24/16 16:00 97.0 78 18 126/63 95 03/24/16 14:25 82 18 114/65 98 03/24/16 14:20 80 20 112/63 98 03/24/16 14:15 98.1 86 18 112/65 98 03/24/16 13:32 97.0 83 18 118/63 99 03/24/16 12:00 97.0 83 18 119/59 99 03/24/16 08:10 84 03/24/16 08:00 97.0 83 19 118/63 99 I/O 03/24/16 03/24/16 03/24/16 03/25/16 03/25/16 03/25/16 07:00 15:00 23:00 07:00 15:00 23:00 Intake Total 0 ml 500 ml 869 ml 786 ml Output Total 900 ml 650 ml 375 ml 1050 ml Balance -900 ml -150 ml 494 ml -264 ml Intake Oral 0 ml 0 ml 0 ml 0 ml IV Total 500 ml 200 ml 200 ml TPN/PPN 669 ml 586 ml Output Urine Total 900 ml 650 ml 325 ml 1000 ml Gastric Drainage Total 50 ml 50 ml # Bowel Movements 1 1 1 Result Diagram: 03/23/16 0532 03/22/16 0500 Objective Remarks wbc 9.6 no discharge/ no pus noted draining from left neck I & D site, minimal heme noted neck soft , trach midline, no erythema , suture intact no elevation fom/tongue, no vestibule edema, full mouth opening, tissues pink and well perfused extraction/ I&D sites hemostatic all wound margins well approximated Assessment and Plan Assessment and Plan POD 8 s/p extraction teeth 18, I&D b/l neck abscess neck culture - alpha strep,, Fungi - species ID pending, / no AFB, skin naga continue abx afebrile, wbc normal range will follow pt appears more comfortable today continue dressing changes peg tube placed yesterday no surgical intervention at this time Venkatesh Sanderson DMD Mar 25, 2016 07:50
[2016-03-25 08:00] VITALS: BP 150/88; PULSE 125; RESP 18; TEMP 98.6; O2SAT 97
--- NOTE | 2016-03-25 10:30 | HHI.PR ---
Subjective History of Present Illness more awake follows simple commands/answers simple questions pain appears better controlled no fever or chills No shortness of breath Offers no other complaints Hospital Day: 7 Review of Systems Constitutional Constitutional: Weakness Musculoskeletal MS: Discomfort/Pain Vitals/Results Intake & Output 03/24/16 03/24/16 03/25/16 15:00 23:00 07:00 Intake Total 500 ml 869 ml 786 ml Output Total 650 ml 375 ml 1050 ml Balance -150 ml 494 ml -264 ml Intake Oral 0 ml 0 ml 0 ml IV Total 500 ml 200 ml 200 ml TPN/PPN 669 ml 586 ml Output Urine Total 650 ml 325 ml 1000 ml Gastric Drainage Total 50 ml 50 ml # Bowel Movements 1 1 Vital Signs Vital Signs Date Time Temp Pulse Resp B/P Pulse Ox O2 Delivery O2 Flow Rate FiO2 03/25/16 08:00 98.6 125 18 150/88 97 03/25/16 04:00 96.4 118 17 157/75 97 03/25/16 00:00 96.4 91 17 124/67 96 03/24/16 20:00 108 03/24/16 20:00 96.7 104 17 127/60 96 03/24/16 17:39 18 03/24/16 16:00 97.0 78 18 126/63 95 03/24/16 14:25 82 18 114/65 98 03/24/16 14:20 80 20 112/63 98 03/24/16 14:15 98.1 86 18 112/65 98 03/24/16 13:32 97.0 83 18 118/63 99 03/24/16 12:00 97.0 83 18 119/59 99 CBC/BMP: 03/23/16 0532 03/22/16 0500 Physical Exam General General Appearance: No Acute Distress, Comfortable Appearance Remarks Frail elderly female Eyes Eye Exam: Pupils Equal, Pupils Reactive Ears & Nose Ears & Nose Exam: Nasal Mucosa Panacea Neck Neck Exam: Nuchal Rigidity Neck Remarks Dressing on the neck is intact Pulmonary Resp Exam: Breath Sounds Equal, No Distress, Poor Inspiratory Effort Cardiology CV Exam: Regular, Normal Sinus Rhythm Gastrointestinal/Abdomen GI Exam: Soft, Non-Tender, Bowel Sounds Present, Non-Distended, Bowel Sounds Hypoactive Genitourinary Exam: Clear Urine Musculoskeletal MS Exam: Atrophy, Unable to Ambulate Integumentary Skin Exam: Warm, Dry Extremeties Extremities Exam: Pedal Pulses Palpable, Trace Edema Neurologic Neuro Exam: Alert, Awake, Moving All Extremities, No Focal Deficits VTE Prophylaxis VTE Prophylaxis Device: SCDs VTE Prophylaxis Meds: Heparin Assessment/Plan Problem List: (1) Sepsis (2) Altered mental status (3) Blood glucose elevated (4) Hypokalemia (5) Spinocerebellar ataxia (6) left mandibular abscess (7) recent I/D left mandible (8) History of recent dental procedure Assessment/Plan 65 y/o woman with admitted to [facility] on 03/11/2016 b/l neck, & left mandibular abscess Streptococcus anginosus; S/P emergent exploratory surgery and i&d of abscess per Dr. Carter. Recent dental procedure on 03/05/2016 on the right side. s/p intubation for airway protection. Transferred to [facility] for evaluation by [facility]. s/p extraction teeth 02/28, -s/p I&D b/l neck abscess 03/[address] Sanderson -2 of the oral drains were removed; external drain removed 03/21/16 -Speech therapy for swallow eval noted -Patient unable to eat due to her poor cognitive functions - s/p PEG placement 03/24/16 - start Tube feeding - start weaning TPN to off -wound care -analgesic s/p sepsis, resolving -continue antibiotics, -ID Follow up --CT of neck noted -WBC improving -Cultures+ve yeast - d/w Dr Cerda , she is rec changing to po abx Hypokalemia-replace & monitor -stable Elevated blood glucose- -continue with accu checks and ISS s/p AMS, suspect metabolic Encephalopathy Appears to be improving / back to base line -Neuro checks Hx of spinocerebellar ataxia -pt. wheelchair bound, lives at [facility] with PT Heparin/SCDs for DVT prophylaxis Pepcid for GI prophylaxis CM for dc planning, hopefully discharge in am d/w RN d/w SW Problem Qualifiers (1) Sepsis: Qualified Code: A41.9 - Sepsis, due to unspecified organism (2) Altered mental status: Qualified Code: R41.0 - Disorientation Ana Estrada MD Mar 25, 2016 10:30 This patient was seen by myself and Dr. Estrada, this note is written on his behalf. Problem Qualifiers (1) Sepsis: Qualified Code: A41.9 - Sepsis, due to unspecified organism (2) Altered mental status: Qualified Code: R41.0 - Disorientation Ana Estrada MD Mar 25, 2016 10:30
[2016-03-25] MEDS: FLUCONAZOLE 200 MG TAB PO SCH (11:51)
[2016-03-25 12:00] VITALS: BP 160/78; PULSE 125; RESP 18; TEMP 98.2; O2SAT 96
--- NOTE | 2016-03-25 12:18 | HHI.IDPN ---
Subjective Subjective Remarks Notes reviewed Temps ok S/P PEG OR C/S now also with yeast D/W Dr Estrada Mental status better Antibiotics Unasyn Past Medical History Spinocerebellar ataxia Past Surgical History Right hand surgery Breast augmentation Question section Allergies: Coded Allergies: Codeine (Verified Allergy, Unknown, 02/03/16) Vicodin (Verified Allergy, Unknown, 02/03/16) Objective . Vital Signs Date Time Temp Pulse Resp B/P Pulse Ox O2 Delivery O2 Flow Rate FiO2 03/25/16 08:00 98.6 125 18 150/88 97 03/25/16 04:00 96.4 118 17 157/75 97 03/25/16 00:00 96.4 91 17 124/67 96 03/24/16 20:00 108 03/24/16 20:00 96.7 104 17 127/60 96 03/24/16 17:39 18 03/24/16 16:00 97.0 78 18 126/63 95 03/24/16 14:25 82 18 114/65 98 03/24/16 14:20 80 20 112/63 98 03/24/16 14:15 98.1 86 18 112/65 98 03/24/16 13:32 97.0 83 18 118/63 99 03/24/16 03/24/16 03/25/16 15:00 23:00 07:00 Intake Total 500 ml 869 ml 786 ml Output Total 650 ml 375 ml 1050 ml Balance -150 ml 494 ml -264 ml Intake Oral 0 ml 0 ml 0 ml IV Total 500 ml 200 ml 200 ml TPN/PPN 669 ml 586 ml Output Urine Total 650 ml 325 ml 1000 ml Gastric Drainage Total 50 ml 50 ml # Bowel Movements 1 1 Imaging Chest X-Ray 03/17/16 0000 Signed Impressions: Service Date/Time: Thursday, March 17, 2016 10:55 - CONCLUSION: 1. Increased density seen over the bases especially on the right thought to mainly be related to overlying soft tissue structures. A definitive consolidation is not clearly seen. 2. The lungs do appear hyperinflated. Anant Hu MD Neck CT 03/16/16 0000 Signed Impressions: Service Date/Time: Wednesday, March 16, 2016 09:37 - CONCLUSION: Dental abscess as described above extending from tonsillar fossa around the mandible to the parotid space with extension along the base of the tongue to the arch of the mandible. Air and fluid is evident. Sarkis Kurtz MD FACR Physical Exam GENERAL: More awake, following commands SKIN: No generalized rash. HEENT: [place] conjunctivae, no petechia or hemorrhage. No scleral icterus. Airway patent. NECK: Incision in neck with reddish brown drainage, less CARDIOVASCULAR: Regular rate and rhythm without murmurs, gallops, or rubs. RESPIRATORY: Clear to auscultation. Breath sounds equal bilaterally. GASTROINTESTINAL: Abdomen soft, mildly distended, not guarding, no rebound. MUSCULOSKELETAL: Extremities without clubbing, cyanosis, or edema. NEUROLOGICAL: Awake, focusing. PSYCH: Unable to assess LINE: Line with no evidence of infection : Membreno cath in place, urine looks clear Assessment & Plan Remarks IMPRESSION Strep anginosus sepsis due to L neck abscess Yoan neck abscess S/P I and D deep L neck abscess, S/P L neck exploration in [facility] Now S/P I and D yoan neck abscess and tooth extraction Encephalopathy, better Leukocytosis, resolved RECOMMENDATION Continue Unasyn IV while in the hospital Restart Diflucan When D/C, Augmentin and Diflucan x 14 more days - Augmentin 500 TID - Diflucan 200 daily Clinically doing well Pati Cerda MD Mar 25, 2016 12:18
[2016-03-25] MEDS: BENEPROTEIN POWDER 1 PACK G-TUBE SCH ×2 (13:00→18:00)
--- NOTE | 2016-03-25 13:20 | HHI.GIFU ---
Subjective Remarks Resting in bed. No distress. Status post PEG tube placement yesterday. She is nothing by mouth at this time. (Jacqui Mayer) Objective Vitals I&O Vital Signs Date Time Temp Pulse Resp B/P Pulse Ox O2 Delivery O2 Flow Rate FiO2 03/25/16 08:00 98.6 125 18 150/88 97 03/25/16 04:00 96.4 118 17 157/75 97 03/25/16 00:00 96.4 91 17 124/67 96 03/24/16 20:00 108 03/24/16 20:00 96.7 104 17 127/60 96 03/24/16 17:39 18 03/24/16 16:00 97.0 78 18 126/63 95 03/24/16 14:25 82 18 114/65 98 03/24/16 14:20 80 20 112/63 98 03/24/16 14:15 98.1 86 18 112/65 98 03/24/16 13:32 97.0 83 18 118/63 99 I/O 03/24/16 03/24/16 03/24/16 03/25/16 03/25/16 03/25/16 07:00 15:00 23:00 07:00 15:00 23:00 Intake Total 0 ml 500 ml 869 ml 786 ml Output Total 900 ml 650 ml 375 ml 1050 ml Balance -900 ml -150 ml 494 ml -264 ml Intake Oral 0 ml 0 ml 0 ml 0 ml IV Total 500 ml 200 ml 200 ml TPN/PPN 669 ml 586 ml Output Urine Total 900 ml 650 ml 325 ml 1000 ml Gastric Drainage Total 50 ml 50 ml # Bowel Movements 1 1 1 Imaging Last Impressions Chest X-Ray 03/17/16 0000 Signed Impressions: Service Date/Time: Thursday, March 17, 2016 10:55 - CONCLUSION: 1. Increased density seen over the bases especially on the right thought to mainly be related to overlying soft tissue structures. A definitive consolidation is not clearly seen. 2. The lungs do appear hyperinflated. Anant Hu MD Neck CT 03/16/16 0000 Signed Impressions: Service Date/Time: Wednesday, March 16, 2016 09:37 - CONCLUSION: Dental abscess as described above extending from tonsillar fossa around the mandible to the parotid space with extension along the base of the tongue to the arch of the mandible. Air and fluid is evident. Sarkis Kurtz MD FACR Physical Exam HEENT: Normocephalic; atraumatic; no jaundice. Drsg left neck d/i. CHEST: CTA, Periods of sleep apnea CARDIAC: RRR ABDOMEN: Soft, nondistended, nontender; no hepatosplenomegaly; bowel sounds are present in all four quadrants. PEG tube site with small amount of sanguinous drainage no swelling or redness EXTREMITIES: No clubbing, cyanosis, or edema. SKIN: Normal; no rash; no jaundice. CH[employer] MACHINE: Lethargic, confused (Jacqui Mayer) Assessment and Plan Plan ASSESSMENT: - Dysphagia, Malnutrition. Hospitalized for left submandibular abscess, requiring multiple I&D and extraction of teeth. On Abx per ID. ST following, recommends NPO. Daughter had reported that she had significant weight loss over the past several months. TPN . Status post EGD with PEG tube placement (03/24/16)-----> normal EGD, hiatal hernia on retroflexion, status post PEG tube placement. Site with small amount of sanguinous drainage but no redness or swelling. Dietitian recommended Jevity 1.5 at 30 cc an hour and increase to goal rate of 40. She is on TPN PLAN: - Jevity 1.5 at 30cc/hr, increase to 40cc/hr - Wean TPN once at [facility] - Supportive care - Further recommendations to follow based on results of above - Pt seen and examined by Dr. Thompson and myself and this note is written on her behalf (Jacqui Mayer) Physician Comments agree with above (Alexandra Thompson MD) Jacqui Mayer Mar 25, 2016 13:20 Alexandra Thompson MD Mar 25, 2016 19:37
--- NOTE | 2016-03-25 14:57 | HHI.HCPN ---
Reason for visit a. To assist with evaluation and management of symptoms including: pain, malnutrition, altered metal status, constipation b. To assist medical decision maker(s) with: better understanding of current medical conditions; weighing benefits/burdens of medical treatment options; making medical treatment decisions. . Subjective/Interval History Patient seen and assessed in room 1727. Status post PEG tube placement yesterday , slight without redness or swelling. EGD normal per GI. Remains NPO. Dietitian has made recommendations for Jevity 1.5 at 30ml per hour, increasing to goal rate of 40ml/hour. Patient remains on TPN which will be weaned once goal rate is obtained. LBM: 03/24/16 Mental status improving, lethargic. Speech is garbled.. Patient has no complaints and denies pain. PRN morphine is available. Patient received 2mg morphine x 5 over the past 24 hours for non-verbal/verbal pain that was variable. Patient verbalized aching abdominal pain, rated 6 out of 10. Afebrile. Leukocytosis resolved. Woundmouth culture growing yeast, Diflucan was restarted. Infectious disease following. Plan to continue Zosyn while in the hospital. Upon discharged patient will need to continue Augmentin and Diflucan for an additional 14 days. . Advance Directives Advance Directive Specifics Date completed: 07/26/15 . Health Care Surrogate(s): Patient's daughter, Lynnette Ambrocio, is designated as the health care surrogate. Levon Ambrocio, son in law, has been designated as the alternate health care surrogate. . Documented care wishes: None Objective Vital Signs Date Time Temp Pulse Resp B/P Pulse Ox O2 Delivery O2 Flow Rate FiO2 03/25/16 12:00 98.2 125 18 160/78 96 03/25/16 08:00 98.6 125 18 150/88 97 03/25/16 04:00 96.4 118 17 157/75 97 03/25/16 00:00 96.4 91 17 124/67 96 03/24/16 20:00 108 03/24/16 20:00 96.7 104 17 127/60 96 03/24/16 17:39 18 03/24/16 16:00 97.0 78 18 126/63 95 Intake & Output 03/25/16 03/25/16 07:00 19:00 Intake Total 1655 ml Output Total 1425 ml Balance 230 ml Intake Oral 0 ml IV Total 400 ml TPN/PPN 1255 ml Output Urine Total 1325 ml Gastric Drainage Total 100 ml # Bowel Movements 1 . Physical Exam CONSTITUTIONAL/GENERAL: This is a cachectic 66-year-old female, in no apparent distress. TUBES/LINES/DRAINS: PICC line, Membreno SKIN: No jaundice, rashes, or lesions. Ecchymoses on upper extremities. No wounds seen anteriorly. Skin temperature appropriate. Not diaphoretic. HEAD: Atraumatic. Normocephalic. EYES: Pupils equal and round and reactive. Extraocular motions intact. No scleral icterus. No injection or drainage. Fundi not examined. ENT: Hearing grossly normal. Nose without bleeding or purulent drainage. NECK: Trachea midline. Dressing on left side of the neck clean, dry and intact. CARDIOVASCULAR: Regular rate and rhythm without murmurs, gallops, or rubs. No JVD. Peripheral pulses symmetric. RESPIRATORY/CHEST: Symmetric, unlabored respirations. Clear to auscultation. No wheezes, rales, or rhonchi. GASTROINTESTINAL: Abdomen soft, non-tender, nondistended. No guarding. Bowel sounds present. GENITOURINARY: Without palpable bladder distension. Membreno catheter in place. MUSCULOSKELETAL: Extremities without clubbing, cyanosis, or edema. No mottling or clubbing. PEG tube site with small amount of serosanguineous drainage, no redness or swelling noted. LYMPHATICS: No palpable cervical or supraclavicular adenopathy. NEUROLOGICAL: Oriented to person only. Lethargic. Weak. Attempts to follow commands, moving all extremities 4. Garbled speech. PSYCHIATRIC: No obvious anxiety/depression. No apparent hallucinations or other psychotic thought process. . Diagnostic Tests Laboratory Laboratory Tests Test 03/23/16 05:32 White Blood Count 9.6 TH/MM3 (4.0-11.0) Red Blood Count 3.00 MIL/MM3 (4.00-5.30) Hemoglobin 9.6 GM/DL (11.6-15.3) Hematocrit 28.1 % (35.0-46.0) Mean Corpuscular Volume 93.5 FL (80.0-100.0) Mean Corpuscular Hemoglobin 32.0 PG (27.0-34.0) Mean Corpuscular Hemoglobin 34.2 % Concent (32.0-36.0) Red Cell Distribution Width 15.0 % (11.6-17.2) Platelet Count 382 TH/MM3 (150-450) Mean Platelet Volume 7.7 FL (7.0-11.0) Neutrophils (%) (Auto) 78.2 % (16.0-70.0) Lymphocytes (%) (Auto) 6.8 % (9.0-44.0) Monocytes (%) (Auto) 14.3 % (0.0-8.0) Eosinophils (%) (Auto) 0.4 % (0.0-4.0) Basophils (%) (Auto) 0.3 % (0.0-2.0) Neutrophils # (Auto) 7.5 TH/MM3 (1.8-7.7) Lymphocytes # (Auto) 0.7 TH/MM3 (1.0-4.8) Monocytes # (Auto) 1.4 TH/MM3 (0-0.9) Eosinophils # (Auto) 0.0 TH/MM3 (0-0.4) Basophils # (Auto) 0.0 TH/MM3 (0-0.2) CBC Comment AUTO DIFF Differential Total Cells 100 Counted Neutrophils % (Manual) 82 % (16-70) Band Neutrophils % 3 % (0-6) Lymphocytes % 4 % (9-44) Monocytes % 10 % (0-8) Neutrophils # (Manual) 8.3 TH/MM3 (1.8-7.7) Myelocytes 1 % (0-0) Differential Comment FINAL DIFF MANUAL Platelet Estimate NORMAL (NORMAL) Platelet Morphology Comment NORMAL (NORMAL) Red Cell Morphology Comment NORMAL (NORMAL) . Result Diagram: 03/23/16 0532 03/22/16 0500 Procedures 03/24/16: EGD with PEG tube placement . Assessment and Plan Disease Oriented Problem List: (1) Osteoporosis (2) recent I/D left mandible (3) left mandibular abscess (4) Spinocerebellar ataxia (5) Blood glucose elevated (6) Hypokalemia (7) Sepsis (8) Right humeral fracture (9) Impaired mobility and ADLs (10) Coordination impairment (11) Osteoarthritis Symptom Scale: (1) Altered mental status Comment: Oriented to self only. Per facility staff report and daughter, the patient was alert and oriented prior to this hospitalization. Facility staff stated the patient was relatively independent, managing her own medications. The patient's daughter, Lynnette, states the patient is very sensitive to medications, especially those that are sedating. . (2) Pain Comment: Pain is likely secondary to recent abscess with I&D and PEG tube placement. Additional potential causes of pain include osteoarthritis, chronic shoulder pain status post fall/fracture, invasive lines, bedbound status, immobility etc. Morphine 2mg IV is available q30 minutes PRN for pain 610. Patient has no complaints and denies pain. PRN morphine is available. Patient received 2mg morphine x 5 over the past 24 hours for non-verbal/verbal pain that was variable. Patient verbalized aching abdominal pain, rated 6 out of 10. Palliative care will continue to monitor PRN requirements and make recommendations as indicated. . (3) Malnutrition Comment: The patient has had intermittent coughing with solids and liquids. Previous swallow evaluation made recommendation for esophageal dilatation, it is unclear if this procedure took place. Patient now refusing to eat. The patient's daughter reports the patient has been missing a significant amount of weight and not eating well for several months. GI was consulted and the patient was started on TPN. EGD with PEG placement later today. Pertinent Non-Medical Issues Psychosocial: Patient is a . Patient lives at an [facility]. Her only child, daughter Lynnette, lives locally. Spiritual: No gnosticism affiliation. Legal: Per [place] statutes, in the absence of written advanced directives healthcare proxy decision-making falls to the patient's daughter, Lynnette Ford. Daughter states she is the designated health care surrogate - awaiting documentation. Ethical issues impacting care: No known ethical issues impacting care at this time. . Important Contacts Lynnette Ambrocio, daughter: [phone] . 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 Per medical notes, the patient has had a progressive decline in strength and coordination. She is currently confused and has been intermittently combative. The patient has had intermittent coughing with solids and liquids. Patient now refusing to eat, per daughter the patient has been losing a significant amount of weight and not eating well for several months. EGD with PEG tube placement planned an upcoming days. Although both facility staff and the patient daughter have indicated the patient was quite independent and managing her own meds prior to being hospitalized, the patient has a progressively debilitating condition placing her at risk for continued decline. . Code Status: Full Code Plan * FULL CODE * Decision making: Per [place] statutes, in the absence of written advanced directives healthcare proxy decision making would fall to the patient's daughter Cherei Ford. Lynnette states she is designated as the HCS - awaiting fax from facility. * Goals: Aggressive goals. Discharge to longterm facility to begin rehabilitation, then return to [place]. * Symptom managementpain: Pain is likely secondary to recent abscess with I&D and PEG tube placement. Additional potential causes of pain include osteoarthritis, chronic shoulder pain status post fall/fracture, invasive lines , bedbound status, immobility etc. Morphine 2mg IV is available q30 minutes PRN for pain 610. Patient has no complaints and denies pain. PRN morphine is available. Patient received 2mg morphine x 5 over the past 24 hours for non- verbal/verbal pain that was variable. Patient verbalized aching abdominal pain, rated 6 out of 10. * DAUGHTER REQUESTING PATIENT BE WEANED FROM PAIN MEDICATION USE STATING IT CONTRIBUTES TO HER MOTHER' S ALTERED MENTAL STATUS. Palliative care will continue to monitor PRN requirements and make recommendations as indicated. * Symptom managementaltered mental status: Oriented to self only. Per facility staff report and daughter, the patient was alert and oriented prior to this hospitalization. Facility staff stated the patient was relatively independent, managing her own medications. The patient's daughter, Lynnette, states the patient is very sensitive to medications, especially those that are sedating. * Symptom managementdysphasia: The patient has had intermittent coughing with solids and liquids. NPO per speech therapy recommendation. Status post PEG tube placement yesterday, slight without redness or swelling. EGD normal per GI. Remains NPO. Dietitian has made recommendations for Jevity 1.5 at 30ml per hour , increasing to goal rate of 40ml/hour. Patient remains on TPN which will be weaned once goal rate is obtained. * Symptom managementconstipation: Dulcolax suppository ordered daily PRN. LBM: 03/24/16 * Palliative care contact information was provided to the patient's daughter, Lynnette Ford. * Palliative care will continue to follow this patient throughout her hospitalization to establish trust, assist with symptom management and clarification of medical treatment goals. . Attestation To help prompt me to consider important information that might be impacting today's encounter and assessment, information from prior notes written by myself or my colleagues may have been "brought forward" into today's note. My signature on this note, however, is an attestation that I personally performed the exam, history, and/or decision-making noted today, and, unless otherwise indicated, the interactions with patient, family, and staff as well as the review of records all occurred today. I also attest that the listed assessment and stated plan reflect my best clinical judgment today based on the combination of historical information, prior notes, and today's exam/ interactions. When time spent is documented, it refers only to time spent today by the signer, or if indicated, combined time spent today by collaborating physician/nurse practitioner. . Fiordaliza Piper Mar 25, 2016 14:57
[2016-03-25 16:00] VITALS: BP 147/78; PULSE 101; RESP 16; TEMP 96.8; O2SAT 98
[2016-03-25] MEDS ORDERED: FAMO20TA2 PO (17:03)
[2016-03-25] MEDS ORDERED: PROT6POW G-TUBE (17:03)
[2016-03-25] MEDS ORDERED: DIFL200T PO (17:03)
[2016-03-25] MEDS ORDERED: AUGM500T7 PO (17:04)
[2016-03-25 20:00] VITALS: BP 131/76; PULSE 100; PULSE 107; RESP 18; TEMP 97.8; O2SAT 97
[2016-03-25] MEDS: FAMOTIDINE 20 MG TAB PO SCH (21:25)
[2016-03-25] MEDS: SODIUM CHLORIDE 0.9% FLUSH 5 ML FLUSH FLUSH SCH (21:26)
[2016-03-26] VITALS: BP 106/59; PULSE 90; RESP 17; TEMP 97.3; O2SAT 98
[2016-03-26] MEDS: AMPICILLIN-SULBACTAM INJ 3 GM in SODIUM CHLORIDE 0.9% INJ 100 ML IV SCH ×3 (01:07→13:00)
[2016-03-26 04:00] VITALS: BP 100/57; PULSE 90; RESP 17; TEMP 97.3; O2SAT 98
[2016-03-26 05:25] LABS: HEMATOCRIT 26.6 % (35.0-46.0); MEAN CORPUSCULAR HEMOGLOBIN 32.2 PG (27.0-34.0); MEAN CORPUSCULAR HGB CONC 34.3 % (32.0-36.0); PLATELET COUNT 414 TH/MM3 (150-450); RED BLOOD COUNT 2.83 MIL/MM3 (4.00-5.30); REVIEW FLAG FINAL; WHITE BLOOD COUNT 8.8 TH/MM3 (4.0-11.0)
[2016-03-26 05:54] LABS: BICARBONATE 32.6 MEQ/L (21.0-32.0); POTASSIUM 3.4 MEQ/L (3.5-5.1)
[2016-03-26] MEDS: HIGH DOSE INSULIN NOVOLOG SUPPLEMENTAL SCALE SQ SCH ×2 (06:00→11:32)
[2016-03-26 08:00] VITALS: BP 105/60; PULSE 92; RESP 17; TEMP 97.2; O2SAT 97
[2016-03-26] MEDS: BENEPROTEIN POWDER 1 PACK G-TUBE SCH ×2 (09:00→13:00)
[2016-03-26] MEDS: SODIUM CHLORIDE 0.9% FLUSH 5 ML FLUSH FLUSH SCH (10:45)
[2016-03-26] MEDS: FLUCONAZOLE 200 MG TAB PO SCH (10:46)
[2016-03-26] MEDS: FAMOTIDINE 20 MG TAB PO SCH (10:46)
--- NOTE | 2016-03-26 11:19 | HHI.PR ---
Subjective History of Present Illness resting comfortably in bed Off TPN on TF tolerating it awake & responsive follows simple commands/answers simple questions pain appears better controlled no fever or chills No shortness of breath Offers no other complaints Hospital Day: 7 Review of Systems Constitutional Constitutional: Weakness Musculoskeletal MS: Discomfort/Pain Vitals/Results Intake & Output 03/25/16 03/25/16 03/26/16 15:00 23:00 07:00 Intake Total 0 ml 1362 ml 489 ml Output Total 1800 ml 300 ml 400 ml Balance -1800 ml 1062 ml 89 ml Intake Oral 0 ml 0 ml 0 ml IV Total 392 ml 139 ml Tube Feeding 71 ml 250 ml TPN/PPN 799 ml Tube Irrigant 100 ml 100 ml Output Urine Total 1800 ml 300 ml 400 ml # Bowel Movements 0 Vital Signs Vital Signs Date Time Temp Pulse Resp B/P Pulse Ox O2 Delivery O2 Flow Rate FiO2 03/26/16 08:00 97.2 92 17 105/60 97 03/26/16 04:00 97.3 90 17 100/57 98 03/26/16 00:00 97.3 90 17 106/59 98 03/25/16 20:00 97.8 107 18 131/76 97 03/25/16 20:00 100 03/25/16 16:00 96.8 101 16 147/78 98 03/25/16 12:00 98.2 125 18 160/78 96 CBC/BMP: 03/26/16 0425 03/26/16 0425 Lab Results Laboratory Tests Test 03/26/16 04:25 White Blood Count 8.8 TH/MM3 Red Blood Count 2.83 MIL/MM3 Hemoglobin 9.1 GM/DL Hematocrit 26.6 % Mean Corpuscular Volume 94.0 FL Mean Corpuscular Hemoglobin 32.2 PG Mean Corpuscular Hemoglobin 34.3 % Concent Red Cell Distribution Width 15.0 % Platelet Count 414 TH/MM3 Mean Platelet Volume 7.3 FL Sodium Level 142 MEQ/L Potassium Level 3.4 MEQ/L Chloride Level 104 MEQ/L Carbon Dioxide Level 32.6 MEQ/L Anion Gap 5 MEQ/L Blood Urea Nitrogen 11 MG/DL Creatinine 0.40 MG/DL Estimat Glomerular Filtration 159 ML/MIN Rate Random Glucose 134 MG/DL Calcium Level 8.1 MG/DL Physical Exam General General Appearance: No Acute Distress, Comfortable Appearance Remarks Frail elderly female Eyes Eye Exam: Pupils Equal, Pupils Reactive Ears & Nose Ears & Nose Exam: Nasal Mucosa [place] Neck Neck Exam: Nuchal Rigidity Neck Remarks Dressing on the neck is intact Pulmonary Resp Exam: Breath Sounds Equal, No Distress, Poor Inspiratory Effort Cardiology CV Exam: Regular, Normal Sinus Rhythm Gastrointestinal/Abdomen GI Exam: Soft, Non-Tender, Bowel Sounds Present, Non-Distended, Bowel Sounds Hypoactive Genitourinary Exam: Clear Urine Musculoskeletal MS Exam: Atrophy, Unable to Ambulate Integumentary Skin Exam: Warm, Dry Extremeties Extremities Exam: Pedal Pulses Palpable, Trace Edema Neurologic Neuro Exam: Alert, Awake, Moving All Extremities, No Focal Deficits VTE Prophylaxis VTE Prophylaxis Device: SCDs VTE Prophylaxis Meds: Heparin Assessment/Plan Problem List: (1) Sepsis (2) Altered mental status (3) Blood glucose elevated (4) Hypokalemia (5) Spinocerebellar ataxia (6) left mandibular abscess (7) recent I/D left mandible (8) History of recent dental procedure Assessment/Plan 65 y/o woman with admitted to [facility] on 03/11/2016 b/l neck, & left mandibular abscess Streptococcus anginosus; w bacteremia & sepsis S/P emergent exploratory surgery and i&d of abscess per Dr. Carter.at [facility] . s/p intubation for airway protection. Transferred to [facility] for evaluation by ASHLEY. s/p extraction teeth 02/28, -s/p extraction of 2 decaying teeth & I&D b/l neck abscess 03/[address] Sanderson -2 of the oral drains were removed; external drain removed 03/21/16 -Speech therapy for swallow eval noted -Patient unable to eat due to her poor cognitive functions - s/p PEG placement 03/24/16 -cont Tube feeding - -wound care -analgesic s/p sepsis, resolved - -CT of neck noted -WBC improving --continue antibiotics, -wound Cultures+ve yeast -ID Rec 2 wks of augmentin & Diflucan Hypokalemia-replace & monitor -stable Elevated blood glucose- tube feeding -continue with accu checks and ISS s/p AMS, suspect metabolic Encephalopathy Appears to be improving / back to base line -Neuro checks Hx of spinocerebellar ataxia -pt. wheelchair bound, [facility] Heparin/SCDs for DVT prophylaxis Pepcid for GI prophylaxis d/c to SNF today see [facility] see Orders f/u PCP f/u OMFSx Problem Qualifiers (1) Sepsis: Qualified Code: A41.9 - Sepsis, due to unspecified organism (2) Altered mental status: Qualified Code: R41.0 - Disorientation Ana Estrada MD Mar 26, 2016 11:19
[2016-03-26] MEDS ORDERED: ACET325T PO (11:24)
[2016-03-26 12:00] VITALS: BP 118/56; PULSE 93; RESP 18; TEMP 97.4; O2SAT 97
--- NOTE | 2016-03-26 12:02 | HHI.IDPN ---
Subjective Subjective Remarks Notes reviewed Temps ok Getting TF TPN being tapered to off Mental status better Antibiotics Unasyn Diflucan Past Medical History Spinocerebellar ataxia Past Surgical History Right hand surgery Breast augmentation Question section Allergies: Coded Allergies: Codeine (Verified Allergy, Unknown, 02/03/16) Vicodin (Verified Allergy, Unknown, 02/03/16) Objective . Vital Signs Date Time Temp Pulse Resp B/P Pulse Ox O2 Delivery O2 Flow Rate FiO2 03/26/16 08:00 97.2 92 17 105/60 97 03/26/16 04:00 97.3 90 17 100/57 98 03/26/16 00:00 97.3 90 17 106/59 98 03/25/16 20:00 97.8 107 18 131/76 97 03/25/16 20:00 100 03/25/16 16:00 96.8 101 16 147/78 98 03/25/16 03/25/16 03/26/16 15:00 23:00 07:00 Intake Total 0 ml 1362 ml 489 ml Output Total 1800 ml 300 ml 400 ml Balance -1800 ml 1062 ml 89 ml Intake Oral 0 ml 0 ml 0 ml IV Total 392 ml 139 ml Tube Feeding 71 ml 250 ml TPN/PPN 799 ml Tube Irrigant 100 ml 100 ml Output Urine Total 1800 ml 300 ml 400 ml # Bowel Movements 0 . Laboratory Tests Test 03/26/16 04:25 White Blood Count 8.8 TH/MM3 Red Blood Count 2.83 MIL/MM3 Hemoglobin 9.1 GM/DL Hematocrit 26.6 % Mean Corpuscular Volume 94.0 FL Mean Corpuscular Hemoglobin 32.2 PG Mean Corpuscular Hemoglobin 34.3 % Concent Red Cell Distribution Width 15.0 % Platelet Count 414 TH/MM3 Mean Platelet Volume 7.3 FL Laboratory Tests Test 03/26/16 04:25 Sodium Level 142 MEQ/L Potassium Level 3.4 MEQ/L Chloride Level 104 MEQ/L Carbon Dioxide Level 32.6 MEQ/L Anion Gap 5 MEQ/L Blood Urea Nitrogen 11 MG/DL Creatinine 0.40 MG/DL Estimat Glomerular Filtration 159 ML/MIN Rate Random Glucose 134 MG/DL Calcium Level 8.1 MG/DL Imaging Chest X-Ray 03/17/16 0000 Signed Impressions: Service Date/Time: Thursday, March 17, 2016 10:55 - CONCLUSION: 1. Increased density seen over the bases especially on the right thought to mainly be related to overlying soft tissue structures. A definitive consolidation is not clearly seen. 2. The lungs do appear hyperinflated. Anant Hu MD Neck CT 03/16/16 0000 Signed Impressions: Service Date/Time: Wednesday, March 16, 2016 09:37 - CONCLUSION: Dental abscess as described above extending from tonsillar fossa around the mandible to the parotid space with extension along the base of the tongue to the arch of the mandible. Air and fluid is evident. Sarkis Kurtz MD FACR Physical Exam GENERAL: Awake, talking, following commands, not in distress SKIN: No generalized rash. HEENT: [place] conjunctivae, no petechia or hemorrhage. No scleral icterus. Airway patent. NECK: Incision in neck with min bloody drainage, almost no redness CARDIOVASCULAR: Regular rate and rhythm without murmurs, gallops, or rubs. RESPIRATORY: Clear to auscultation. Breath sounds equal bilaterally. GASTROINTESTINAL: Abdomen soft, mildly distended, not guarding, no rebound. MUSCULOSKELETAL: Extremities without clubbing, cyanosis, or edema. NEUROLOGICAL: Awake, focusing. PSYCH: Unable to assess LINE: Line with no evidence of infection : Membreno cath in place, urine looks clear Assessment & Plan Remarks IMPRESSION Strep anginosus sepsis due to L neck abscess Yoan neck abscess S/P I and D deep L neck abscess, S/P L neck exploration in [facility] Now S/P I and D yoan neck abscess and tooth extraction Encephalopathy, better Leukocytosis, resolved RECOMMENDATION Continue Unasyn IV while in the hospital Continue Diflucan When D/C, Augmentin and Diflucan x 14 more days - Augmentin 500 TID - Diflucan 200 daily Clinically doing well I will be available prn Pati Cerda MD Mar 26, 2016 12:02
--- NOTE | 2016-03-26 17:44 | HHI.HCPN ---
Reason for visit a. To assist with evaluation and management of symptoms including: pain, malnutrition, altered metal status, constipation b. To assist medical decision maker(s) with: better understanding of current medical conditions; weighing benefits/burdens of medical treatment options; making medical treatment decisions. . Subjective/Interval History Patient seen and assessed in room 1727. Status post PEG tube placement, pressure bandage in place. Tolerating Jevity 1.540 mL's per hour. LBM: 03/24/16. Mental status improving, lethargic. Speech remains garbled. Patient grimaces briefly when touched, resolves spontaneously. PRN morphine is available, not administered in the past 24 hours. Afebrile. Leukocytosis resolved. Woundmouth culture growing yeast, Diflucan was restarted. Infectious disease following. Plan to continue Zosyn while in the hospital. Upon discharged patient will need to continue Augmentin and Diflucan for an additional 14 days. Lab work 03/26/16: == WBC 8.8, hemoglobin 9.1, hematocrit 26.6, platelets 414 == Sodium 142, potassium 3.4, chloride 104, carbon dioxide 32.6, BUN 11, creatinine 0.40, GFR 159, glucose 134, calcium 8.1 Tentative plans to discharge patient today. She has been accepted for admission to [facility]. . Advance Directives Advance Directive Specifics Date completed: 07/26/15 . Health Care Surrogate(s): Patient's daughter, Lynnette Ambrocio, is designated as the health care surrogate. Levon Ambrocio, son in law, has been designated as the alternate health care surrogate. . Documented care wishes: None Objective Vital Signs Date Time Temp Pulse Resp B/P Pulse Ox O2 Delivery O2 Flow Rate FiO2 03/26/16 12:00 97.4 93 18 118/56 97 03/26/16 08:00 97.2 92 17 105/60 97 03/26/16 04:00 97.3 90 17 100/57 98 03/26/16 00:00 97.3 90 17 106/59 98 03/25/16 20:00 97.8 107 18 131/76 97 03/25/16 20:00 100 Intake & Output 03/26/16 03/26/16 07:00 19:00 Intake Total 1851 ml 433 ml Output Total 700 ml Balance 1151 ml 433 ml Intake Oral 0 ml IV Total 531 ml 113 ml Tube Feeding 321 ml 320 ml TPN/PPN 799 ml Tube Irrigant 200 ml Output Urine Total 700 ml . Physical Exam CONSTITUTIONAL/GENERAL: This is a cachectic 66-year-old female, in no apparent distress. TUBES/LINES/DRAINS: Membreno SKIN: No jaundice, rashes, or lesions. Ecchymoses on upper extremities. No wounds seen anteriorly. Skin temperature appropriate. Not diaphoretic. HEAD: Atraumatic. Normocephalic. EYES: Pupils equal and round and reactive. Extraocular motions intact. No scleral icterus. No injection or drainage. Fundi not examined. ENT: Hearing grossly normal. Nose without bleeding or purulent drainage. NECK: Trachea midline. Dressing on left side of the neck clean, dry and intact. CARDIOVASCULAR: Regular rate and rhythm without murmurs, gallops, or rubs. No JVD. Peripheral pulses symmetric. RESPIRATORY/CHEST: Symmetric, unlabored respirations. Clear to auscultation. No wheezes, rales, or rhonchi. GASTROINTESTINAL: Abdomen soft, non-tender, nondistended. No guarding. Bowel sounds present. Abdominal binder in place GENITOURINARY: Without palpable bladder distension. Membreno catheter in place. MUSCULOSKELETAL: Extremities without clubbing, cyanosis, or edema. No mottling or clubbing. LYMPHATICS: No palpable cervical or supraclavicular adenopathy. NEUROLOGICAL: Oriented to person only. Lethargic. Weak. Attempts to follow commands, moving all extremities 4. Garbled speech. PSYCHIATRIC: No obvious anxiety/depression. No apparent hallucinations or other psychotic thought process. . Diagnostic Tests Laboratory Laboratory Tests Test 03/26/16 04:25 White Blood Count 8.8 TH/MM3 (4.0-11.0) Red Blood Count 2.83 MIL/MM3 (4.00-5.30) Hemoglobin 9.1 GM/DL (11.6-15.3) Hematocrit 26.6 % (35.0-46.0) Mean Corpuscular Volume 94.0 FL (80.0-100.0) Mean Corpuscular Hemoglobin 32.2 PG (27.0-34.0) Mean Corpuscular Hemoglobin 34.3 % Concent (32.0-36.0) Red Cell Distribution Width 15.0 % (11.6-17.2) Platelet Count 414 TH/MM3 (150-450) Mean Platelet Volume 7.3 FL (7.0-11.0) Sodium Level 142 MEQ/L (136-145) Potassium Level 3.4 MEQ/L (3.5-5.1) Chloride Level 104 MEQ/L (98-107) Carbon Dioxide Level 32.6 MEQ/L (21.0-32.0) Anion Gap 5 MEQ/L (5-15) Blood Urea Nitrogen 11 MG/DL (7-18) Creatinine 0.40 MG/DL (0.50-1.00) Estimat Glomerular Filtration 159 ML/MIN Rate (>89) Random Glucose 134 MG/DL (74-106) Calcium Level 8.1 MG/DL (8.5-10.1) . Result Diagram: 03/26/1642403/26/16424 Procedures 03/24/16: EGD with PEG tube placement . Assessment and Plan Disease Oriented Problem List: (1) Osteoporosis (2) recent I/D left mandible (3) left mandibular abscess (4) Spinocerebellar ataxia (5) Blood glucose elevated (6) Hypokalemia (7) Sepsis (8) Right humeral fracture (9) Impaired mobility and ADLs (10) Coordination impairment (11) Osteoarthritis Symptom Scale: (1) Altered mental status Comment: Oriented to self only. Per facility staff report and daughter, the patient was alert and oriented prior to this hospitalization. Facility staff stated the patient was relatively independent, managing her own medications. The patient's daughter, Lynnette, states the patient is very sensitive to medications, especially those that are sedating. . (2) Pain Comment: Pain is likely secondary to recent abscess with I&D and PEG tube placement. Additional potential causes of pain include osteoarthritis, chronic shoulder pain status post fall/fracture, invasive lines, bedbound status, immobility etc. Morphine 2mg IV is available q30 minutes PRN for pain 610. Patient has no complaints and denies pain. PRN morphine is available. (3) Malnutrition Comment: The patient has had intermittent coughing with solids and liquids. Previous swallow evaluation made recommendation for esophageal dilatation, it is unclear if this procedure took place. Patient now refusing to eat. The patient's daughter reports the patient has been missing a significant amount of weight and not eating well for several months. GI was consulted and the patient was started on TPN. EGD with PEG placement later today. Pertinent Non-Medical Issues Psychosocial: Patient is a . Patient lives at an [facility]. Her only child, daughter Lynnette, lives locally. Spiritual: No gnosticism affiliation. Legal: Per [place] statutes, in the absence of written advanced directives healthcare proxy decision-making falls to the patient's daughter, Lynnette Ford. Daughter states she is the designated health care surrogate - awaiting documentation. Ethical issues impacting care: No known ethical issues impacting care at this time. . Important Contacts Lynnette Ambrocio, daughter: [phone] . 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 Per medical notes, the patient has had a progressive decline in strength and coordination. She is currently confused and has been intermittently combative. The patient has had intermittent coughing with solids and liquids. Patient now refusing to eat, per daughter the patient has been losing a significant amount of weight and not eating well for several months. EGD with PEG tube placement planned an upcoming days. Although both facility staff and the patient daughter have indicated the patient was quite independent and managing her own meds prior to being hospitalized, the patient has a progressively debilitating condition placing her at risk for continued decline. . Code Status: Full Code Plan * FULL CODE * Decision making: Per [place] statutes, in the absence of written advanced directives healthcare proxy decision making would fall to the patient's daughter Cherie Ford. Lynnette states she is designated as the HCS - awaiting fax from facility. * Goals: Aggressive goals. Discharge to halfway facility to begin rehabilitation, then return to [facility]. * Symptom managementpain: Pain is likely secondary to recent abscess with I&D and PEG tube placement. Additional potential causes of pain include osteoarthritis, chronic shoulder pain status post fall/fracture, invasive lines , bedbound status, immobility etc. Morphine 2mg IV is available q30 minutes PRN for pain 610. Patient has no complaints and denies pain. PRN morphine is available. Patient received 2mg morphine x 5 over the past 24 hours for non- verbal/verbal pain that was variable. Patient verbalized aching abdominal pain, rated 6 out of 10. * DAUGHTER REQUESTING PATIENT BE WEANED FROM PAIN MEDICATION USE STATING IT CONTRIBUTES TO HER MOTHER' S ALTERED MENTAL STATUS. Palliative care will continue to monitor PRN requirements and make recommendations as indicated. * Symptom managementaltered mental status: Oriented to self only. Per facility staff report and daughter, the patient was alert and oriented prior to this hospitalization. Facility staff stated the patient was relatively independent, managing her own medications. The patient's daughter, Lynnette, states the patient is very sensitive to medications, especially those that are sedating. * Symptom managementdysphasia: The patient has had intermittent coughing with solids and liquids. NPO per speech therapy recommendation. It is post PEG tube placement, tolerating Jevity 1.5 at 40 miles per hour. Site without redness or swelling. * Symptom managementconstipation: Dulcolax suppository ordered daily PRN. LBM: 03/24/16 * Tentative plans to discharge patient today. She has been accepted for admission to [facility]. * Palliative care will continue to follow this patient throughout her hospitalization to establish trust, assist with symptom management and clarification of medical treatment goals. . Attestation To help prompt me to consider important information that might be impacting today's encounter and assessment, information from prior notes written by myself or my colleagues may have been "brought forward" into today's note. My signature on this note, however, is an attestation that I personally performed the exam, history, and/or decision-making noted today, and, unless otherwise indicated, the interactions with patient, family, and staff as well as the review of records all occurred today. I also attest that the listed assessment and stated plan reflect my best clinical judgment today based on the combination of historical information, prior notes, and today's exam/ interactions. When time spent is documented, it refers only to time spent today by the signer, or if indicated, combined time spent today by collaborating physician/nurse practitioner. . Fiordaliza Piper Mar 26, 2016 17:44 and stated plan reflect my best clinical judgment today based on the combination of historical information, prior notes, and today's exam/ interactions. When time spent is documented, it refers only to time spent today by the signer, or if indicated, combined time spent today by collaborating physician/nurse practitioner. . Fiordaliza Piper Mar 26, 2016 17:44
--- NOTE | 2016-03-27 18:27 | HHI.DS ---
Discharge Summary Admission Date Mar 15, 2016 at 20:00 Discharge Date: Mar 26, 2016 Admitting Diagnosis left submandibular abscess (1) Sepsis Diagnosis: Principal (2) Spinocerebellar ataxia Diagnosis: Secondary (3) Blood glucose elevated Diagnosis: Secondary (4) Hypokalemia (5) recent I/D left mandible Diagnosis: Secondary (6) History of recent dental procedure Diagnosis: Secondary (7) left mandibular abscess Diagnosis: Principal (8) Altered mental status Diagnosis: Secondary Brief History This was a 65 y/o woman with PMHx of spinocerebellar ataxia, resident of an [facility]. Pt. was admitted to [facility] on 03/11/2016 after she developed swelling to left neck. Pt. had a recent dental procedure on 03/05/2016 on the right side. At [facility], patient was found septic, imaging studies completed showed a left submandibular abscess. Patient required intubation for airway protection and underwent incision and drainage of abscess per Dr. Carter. Patient was admitted to the intensive care unit where she was managed by fire extinguisher repairer inspector Dr. Harris. ID consultation was obtained as well. 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 Currently she was on Rocephin. Patient was extubated at [facility]. Dr. Carter was concerned that there was residual tooth fragment and may need further surgery. As there are no OMFS services at [facility] , she was transferred to [place]. Dr. Carter has discussed case with Dr. Sanderson. Pt. had a josefina drain in place and has cazares colored drainage oozing. CBC/BMP: 03/26/16 0425 03/26/16 0425 Significant Findings Laboratory Tests Test 03/26/16 04:25 Red Blood Count 2.83 MIL/MM3 (4.00-5.30) Hemoglobin 9.1 GM/DL (11.6-15.3) Hematocrit 26.6 % (35.0-46.0) Potassium Level 3.4 MEQ/L (3.5-5.1) Carbon Dioxide Level 32.6 MEQ/L (21.0-32.0) Creatinine 0.40 MG/DL (0.50-1.00) Random Glucose 134 MG/DL (74-106) Calcium Level 8.1 MG/DL (8.5-10.1) Imaging Last Impressions Chest X-Ray 03/17/16 0000 Signed Impressions: Service Date/Time: Thursday, March 17, 2016 10:55 - CONCLUSION: 1. Increased density seen over the bases especially on the right thought to mainly be related to overlying soft tissue structures. A definitive consolidation is not clearly seen. 2. The lungs do appear hyperinflated. Anant Hu MD Neck CT 03/16/16 0000 Signed Impressions: Service Date/Time: Wednesday, March 16, 2016 09:37 - CONCLUSION: Dental abscess as described above extending from tonsillar fossa around the mandible to the parotid space with extension along the base of the tongue to the arch of the mandible. Air and fluid is evident. Sarkis Kurtz MD FACR PE at Discharge Physical Exam Physical Exam General General Appearance: No Acute Distress, Comfortable Appearance Remarks Frail elderly female Eyes Eye Exam: Pupils Equal, Pupils Reactive Ears & Nose Ears & Nose Exam: Nasal Mucosa [place] Neck Neck Exam: Nuchal Rigidity Neck Remarks Dressing on the neck is intact Pulmonary Resp Exam: Breath Sounds Equal, No Distress, Poor Inspiratory Effort Cardiology CV Exam: Regular, Normal Sinus Rhythm Gastrointestinal/Abdomen GI Exam: Soft, Non-Tender, Bowel Sounds Present, Non-Distended, Bowel Sounds Hypoactive Genitourinary Exam: Clear Urine Musculoskeletal MS Exam: Atrophy, Unable to Ambulate Integumentary Skin Exam: Warm, Dry Extremeties Extremities Exam: Pedal Pulses Palpable, Trace Edema Neurologic Neuro Exam: Alert, Awake, Moving All Extremities, No Focal Deficits VTE Prophylaxis VTE Prophylaxis Device: SCDs VTE Prophylaxis Meds: Heparin Ana Estrada MD Mar 26, 2016 11:19 Hospital Course Patient still had significant leukocytosis, WBC 28.5. She's noted also with hypokalemic, potassium 2.9. She was initially admitted to intensive care services, fire extinguisher repairer inspector has been consulted for assistance. Patient had been continued on antibiotics. Patient had been confused, combative and moaning. She is not following commands. Per daughter's report given to nurse, patient sometimes becomes agitated after sedative agents. Neuro baseline is not know, no family is at bedside. Patient is admitted for further evaluation and treatment of these diagnosis listed below. (1) Sepsis (2) Altered mental status (3) Blood glucose elevated (4) Hypokalemia (5) Spinocerebellar ataxia (6) left mandibular abscess (7) recent I/D left mandible (8) History of recent dental procedure Procedure of I&D was done b/l neck abscess 03/[address] Sanderson -2 of the oral drains were removed; external drain removed 03/21/16 -Speech therapy for swallow eval and treated during hospital stay. -Patient unable to eat due to her poor cognitive functions so she received a PEG tube on 03/24/16 - wound care continued with analgesics. s/p sepsis was resolved with antibiotics. ID consulted recommended 2 weeks of Augmentin and Diflucan -CT of neck was done for evaluation. BBC count improving. When cultures were performed and positive for yeast Hypokalemia was noted on lab work. Potassium supplements were given for replacement. She was stabilized Patient is a known diabetic. He was monitored with Accu-Cheks, sliding scale, and given tube feedings for nutrition Altered mental status caused suspect metabolic Encephalopathy during the course of her treatment. This was stabilized before discharge. -Neuro checks were performed per nursing. No acute changes noted Patient had history of spinocerebellar ataxia which caused her to be wheelchair bound. She lives at [facility]. Patient was eval been treated per physical therapy for strengthening. Heparin/SCDs for DVT prophylaxis was performed along with Pepcid for GI prophylaxis. She was stabilized and discharged to SNF today. She is to follow- up with her PCP. Pt Condition on Discharge: Stable Discharge Disposition: Discharge to SNF Discharge Instructions DIET: Follow Instructions for: Nothing By Mouth, On Tube Feeding Additional Diet Instructions: Jevity 1.5 @ 40 cc/hr. flush w 150cc water q 8 hr Fluid Restrictions: none Activities you can perform: Weight Bearing as Raghu Other Activity Instructions: fall precautions/ wheel chair bound Follow up Referrals: Oral Maxillary Surgery - 2 Weeks with Venkatesh Sanderson DMD PCP Follow-up - 1 Week New Medications: Amoxicillin-Clavulanate (Augmentin) 500-125 mg Tab 500 MG PO Q8H Infection #42 Ref 0 TAB Acetaminophen (Acetaminophen) 325 Mg Tab 650 MG PO Q4H PRN PAIN SCALE 1 TO 3 #30 TAB Famotidine (Famotidine) 20 Mg Tab 20 MG PO BID GERD #60 TAB Fluconazole (Diflucan) 200 Mg Tab 200 MG PO DAILY fungal infection #14 TAB Protein (Beneprotein) 6 Gm Pow 1 PACK G-TUBE TID malnutrition #60 PACK Continued Medications: Diflunisal (Diflunisal) 500 Mg Tab 500 MG PO DAILY Pain Management #60 Ref 0 TAB Valarie Harrington Mar 27, 2016 18:27
== END 2016-03-26 14:47 | DRG 871 ==
LOC: N03A 20:00 → N07B 03-21 22:42
PROVIDERS: ADMIT Specialist; ATTEND Specialist
PROC: 0J9400Z Drainage of Right Neck Subcutaneous Tissue and Fascia with Drainage Device, Open Approach (ICD-10-PCS; 2016-03-17)
PROC: 3E0T3BZ Introduction of Anesthetic Agent into Peripheral Nerves and Plexi, Percutaneous Approach (ICD-10-PCS; 2016-03-17)
PROC: 0CTX0Z1 Resection of Lower Tooth, Multiple, Open Approach (ICD-10-PCS; principal; 2016-03-17 16:15)
PROC: 0DH63UZ Insertion of Feeding Device into Stomach, Percutaneous Approach (ICD-10-PCS; 2016-03-24 13:35)
DX: A40.8 Other streptococcal sepsis (principal); G93.41 Metabolic encephalopathy; E46 Unspecified protein-calorie malnutrition; K12.2 Cellulitis and abscess of mouth; L02.11 Cutaneous abscess of neck; K02.9 Dental caries, unspecified; G11.9 Hereditary ataxia, unspecified; N39.0 Urinary tract infection, site not specified; R13.10 Dysphagia, unspecified; E11.65 Type 2 diabetes mellitus with hyperglycemia; E87.6 Hypokalemia; M19.90 Unspecified osteoarthritis, unspecified site; Z99.3 Dependence on wheelchair; Z51.5 Encounter for palliative care; M81.0 Age-related osteoporosis without current pathological fracture; Z74.01 Bed confinement status; K59.00 Constipation, unspecified
CPT/HCPCS: 70491; 71010; 80048; 80053; 81001; 82140; 82948; 83735; 84100; 84132; 85007; 85025; 85027; 85610; 85730; 86403; 87015; 87040; 87070; 87102; 87106; 87116; 87205; 87206; 93005; J0171; J0295; J0360; J0461; J0692; J0696; J1450; J1644; J1815; J1885; J2270; J2370; J2405; J2710; J2930; J3010; J3480; Q9967